=== PATIENT | female | born 1970 | race Caucasian/White ===

== ENCOUNTER 2022-01-13 09:49 | Observation (INO) ==
--- NOTE | 2022-01-06 14:20 | Anesthesiology Consultation ---
Date of Service January 06, 2022 Assessment & Plan (1) Encounter for pre-operative examination: - COVID screening: Per assessment on 01/06: No known COVID-19 positive contacts or current COVID-19 related symptoms. Travel screen negative. Patient vaccinated. At surgeon discretion if preop Covid testing being done. - Outpatient joint assessment: Pt currently scheduled for inpatient pathway. If surgeon requests review for outpatient joint pathway, patient is not recommended candidate for outpatient joint program from anesthesia standpoint. - Cardiology note (11/10/21): "Low to moderate risk.. recommend she stay on ASA 81mg perioperatively" Chart Review Chart Review: Acceptable Risk for Surgery and Patient NOT seen in Pre Admission Testing History Surgery Operation Date: 01/13/22 12:50 Proposed Procedures p Right Total Knee Arthroplasty - Andreas Brown MD Operation Date: 01/13/22 12:50 Proposed Procedures p Right Total Knee Arthroplasty - Andreas Brown MD Height/Weight Height: 5 ft Weight: 99.79 kg Allergies Allergy/AdvReac Type Severity Reaction Status Date / Time ergotamine Allergy Intermediate MADE Verified 01/06/22 10:25 HEADACHE WORSE/NAUSEA ondansetron Allergy Intermediate MADE Verified 01/06/22 10:25 HEADACHE/NAUSEA WORSE Medications Home Medications Medication Instructions Recorded Confirmed Last Taken gabapentin 400 mg capsule 400 mg PO TID 04/22/19 01/06/22 Unknown baclofen 10 mg tablet 10 mg PO TID PRN Pain 04/03/21 01/06/22 Unknown escitalopram oxalate 10 mg tablet 15 mg PO QAM 04/03/21 01/06/22 Unknown (Lexapro) trazodone 50 mg tablet 100 mg PO DAILY PRN Anxiety 04/03/21 01/06/22 Unknown acetaminophen 325 mg tablet 650 mg PO BID 07/04/21 01/06/22 Unknown (Tylenol) aspirin 81 mg capsule 81 mg PO QAM 07/04/21 01/06/22 Unknown celecoxib 100 mg capsule (Celebrex) 100 mg PO BID 10/07/21 01/06/22 Unknown hydroxyzine pamoate 25 mg capsule 25 mg PO BID PRN Anxiety 10/07/21 01/06/22 Unknown (Vistaril) ixekizumab 80 mg/mL subcutaneous 80 mg subcut UD 01/06/22 01/06/22 Unknown auto-injector (Taltz Autoinjector) Past Medical History Medical History Anxiety and depression CAD (coronary artery disease) PCI to mid RCA 04/24/14-F/U DR CHAPA Degenerative disc disease Fibromyalgia GERD (gastroesophageal reflux disease) Well controlled and stable Herniated disc T10-11 Hyperlipidemia NO MEDS Hypertension Migraine Peripheral neuropathy Noted to hands and feet bilaterally Psoriatic arthritis Follows with rheum and derm Restless legs syndrome Sleep apnea NO DEVICE STEMI (ST elevation myocardial infarction) 04/24/2014 Temporomandibular joint disorder NO LOCKING Past Family History Family History Other Unobtainable family history due to adoption Past Surgical History Surgical History H/O shoulder surgery LEFT + BICEP TENDON REPAIR History of appendectomy History of cardiac cath 2014- stent to RCA 03/2017- nonobsructive CAD History of cholecystectomy History of endometrial ablation History of esophagogastroduodenoscopy (EGD) History of heart artery stent 1 STENT PLACED 2014>DR. MOORE *FOLLOWS DR. CHAPA NOW History of Dawood fundoplication History of tonsillectomy and adenoidectomy History of tooth extraction History of total ankle replacement LEFT History of total hip arthroplasty LEFT Nausea and vomiting after administration of anesthetic agent SENSITIVE TO GAS ANESTHETIC Social History Smoking Status: Current every day smoker tobacco type: cigarettes Smoking cigarettes per day: 20 CIGS A DAY Do You Dip or Chew Tobacco: No Hx Alcohol Use: No Hx Substance Use: No substance use type: does not use Lab Results Anesthesia Preop Results Results Anesthesia Widget: WBC 8.51 K/ul (4.8-10.8) 12/31/21 Hgb 15.7 g/dl (12.0-16.0) 12/31/21 Hct 45.8 % (34.1-44.9) H 12/31/21 Plt 240 K/uL (130-400) 12/31/21 Na 139 mmol/L (136-145) 12/31/21 K 4.2 mmol/L (3.5-5.1) 12/31/21 Cl 103 mmol/L (98-107) 12/31/21 CO2 30 mmol/L (21-32) 12/31/21 BUN 22 mg/dl (6-23) 12/31/21 Creat 0.86 mg/dl (0.6-1.2) 12/31/21 Glucose Level 93 mg/dl (70-99(Fasting)) 12/31/21 PT 10.3 Seconds (9.0-12.0) 12/31/21 PTT 29.8 Seconds (21.0-31.0) 12/31/21 INR 1.0 (0.9-1.1) 12/31/21 Blood Type A Negative 12/31/21 Antibody Screen NEGATIVE 12/31/21 Testing Electrocardiogram Date: 10/31/21 SR at 58bpm. LAD. Moderate right precordial repolarization. Negative T in V2. SMall negative T in V3. Echo done 11/07/21. Cardiac risk assessment provided per 11/10/21 note. Chest X-Ray Date: 07/08/21 Frontal and lateral radiographs of the chest demonstrate the cardiomediastinal silhouette to be within normal limits. The lungs are clear of alveolar opacities. There is no evidence for effusion bilaterally. There is no evidence for vascular congestion. There is no acute osseous pathology. IMPRESSION: No acute cardiopulmonary disease. Echocardiogram Date: 11/07/21 EF 55%. Grade I DD. Moderate LAD. Mild MR. Physiologic [place]. Stress Test Date: 11/20/19 EF 60% Small fixed apical defect. Mild intensity, moderate to large size, reversible MPI defect of the anterior, anterolateral and lateral myocardium. This appears to be artifact but ischemia cannot be excluded. Moderately abnormal, moderate risk study. Prior study with similar territory involved, rest worse than stress.
--- NOTE | 2022-01-09 22:07 | History and Physical Report ---
DATE OF ADMISSION: 01/13/2022 CHIEF COMPLAINT: Persistent progressive right knee pain. HISTORY OF PRESENT ILLNESS: A 51-year-old female from [place], who presents for surgical treatmen t of her right knee. I saw her back in March and we scheduled her for knee replacement back then. She has got it canceled due to COVID issues and then had a cardiac workup. This has all been cleare d up and she now would like to have her knee fixed. She has got a long history of knee problems. Lake d this right knee scoped back in 2010 in [place]. Since then, her pain just has gradually got ten better. She has been through extensive conservative treatment provided by Dr. Torres and Dr. Maldonado in [place]. Dr. Lemon actually replaced her hip last year, but refused to do her knee du e to her BMI. Dr. Torres also refused. She is having trouble losing weight due to her limited acti vity. She is hoping to get her knee replaced. PAST MEDICAL HISTORY: Significant for, 1. Obesity with BMI of 44. 2. Elevated cholesterol. 3. Depression. 4. Psoriatic arthritis. 5. Smoking history. 6. Coronary artery disease, status post [place] in 2014. 7. Back surgery/sciatica. PAST SURGICAL HISTORY: Includes, 1. Left hip replacement done by Dr. Lemon on 06/24/2020. 2. Right knee scope done in 2010 in [place]. 3. . 4. Carpal tunnel release. 5. Left ankle replacement at [place] in 2007. 6. Appendectomy. 7. Dawood fundoplication. 8. Endometrial ablation. ALLERGIES: ZOFRAN, WHICH JUST CAUSES NAUSEA AND CAFERGOT. CURRENT MEDICATIONS: Include, 1. Humira. 2. Alprazolam. 3. Atorvastatin. 4. Baclofen. 5. Celebrex. 6. Lexapro. 7. Gabapentin. SOCIAL HISTORY: A 51-year-old female who lives in [place]. . Does not drink. One child. FAMILY HISTORY: Unknown as she is adopted. REVIEW OF SYSTEMS: Significant for psoriasis. She feels she does have psoriatic arthritis. No ches t pain or shortness of breath. No history of DVT or PE. PHYSICAL EXAMINATION: GENERAL: Shows a pleasant, obese, middle-aged female. HEENT: Benign. NECK: Supple. No lymphadenopathy. LUNGS: Clear to auscultation. HEART: Has a regular rate and rhythm. ABDOMEN: Soft, nontender, nondistended. EXTREMITIES: Grossly neurovascularly intact except as follows: Examination of the right knee reveal s the patient walks with a bit of an antalgic gait. She limps on the right side. Moderate to large soft tissue envelope. No obvious psoriatic patches. She does have some psoriasis on her left knee. Range of motion of the right is from 5-120. No instability. No pain with hip motion. X-RAYS: X-rays of the right knee reviewed. It shows advanced right knee DJD. She has complete loss of her medial joint space. She has got subchondral sclerosis. She has got osteophytes in all 3 com partments. She has similar, but less severe disease on the left side. ASSESSMENT: A 51-year-old female with underlying psoriasis and obesity with advanced knee arthritis. She has failed conservative treatment. She would like to have her knee fixed. She was scheduled f or surgery before, but had to cancel due to some cardiac issues, which have been cleared up. PLAN: We will take her to the operating room and do right total knee replacement. The risks and oscar efits of this procedure were explained to the patient and include but not limited to DVT, PE, , infection, neurological injury, vascular injury, bleeding problem, pain, limited range of motion, sti ffness, failure to relieve her symptoms, incomplete relief of symptoms, etc. The patient understands and desires to proceed. Informed consent was obtained. We will likely put some vancomycin in the cement due to her psoriasis and immunosuppression. We are also going to treat her with 7 days of postoperatively. We will hold any Zofran and use Reglan or something else for nausea. We will use tramadol for pain. She will follow up in our clinic 2 kerrie olmedo postop. Job ID: [id number]
[~2022-01-13 09:49] MED LIST: ACETAMINOPHEN 500 MG TAB PO SCH; BUPIVACAINE 0.5 % 5 MG/1 ML PF 10ML VIAL ONE; BUPIVACAINE LIPOSOME/PF 266 MG, BUPIVACAINE/EPINEPHRINE 50 ML, SODIUM CHLORIDE 0.9% 30 ... INFIL SCH; CeleBREX 200 MG CAP PO SCH; EPINEPHrine INJ 1 MG/ML AMP ONE; FAMOTIDINE 20 MG TAB PO SCH; LR 500ML BOLUS, THEN 15ML/HR IV SCH; LR 60ML/HR IV SCH; METOCLOPRAMIDE HCL 10 MG TABLET PO SCH; ROPIVACAINE 0.5% 5 MG/ML 30 ML VIAL ONE; Scopolamine 1 MG TDSY TD SCH; TRANEXAMIC ACID 1,000 MG **IV Intra-op IV SCH; ceFAZolin 2000MG 2,000 MG/15 ML SYR IV SCH
--- NOTE | 2022-01-13 11:25 | History & Physical Bridge Note ---
Date of Service January 13, 2022 History & Physical Bridge Note I have examined the patient, reviewed the History & Physical and in the interval since the performance of the History & Physical I have noted the following changes of clinical significance: no changes noted
[2022-01-13] MEDS ORDERED: fentaNYL citrate 100 MCG/2 ML VIAL ONE (12:39)
[2022-01-13] MEDS ORDERED: MIDAZOLAM HCL 1 MG/ML 2ML VIAL ONE (12:39)
[2022-01-13] MEDS ORDERED: ePHEDrine sulfate 50 MG/ML AMP IV PRN (12:48)
[2022-01-13] MEDS ORDERED: HYDROmorphone INJ 1 MG/ML SYRINGE IV PRN (12:48)
[2022-01-13] MEDS ORDERED: ATROPINE SULFATE 0.1 MG/ML 10ML SYR IV PRN (12:48)
[2022-01-13] MEDS ORDERED: VANCOMYCIN HCL 1000MG/20ML VIAL ONE (13:36)
[2022-01-13] MEDS ORDERED: SODIUM CHLORIDE 0.9% PF 50 ML VIAL ONE (13:36)
[2022-01-13] MEDS ORDERED: BUPIVACAINE LIPOSOME 1.3% 266 MG/20 ML VIAL ONE (13:36)
[2022-01-13] MEDS ORDERED: BUPIVACAINE/EPINEPHRINE 0.25% 1:200,000 30 ML VIAL ONE (13:36)
[2022-01-13] MEDS ORDERED: PROPOFOL IV EMULSION 10 MG/ML 20 ML VIAL IV ONE ×6 (13:53→14:42)
[2022-01-13] MEDS ORDERED: ePHEDrine sulfate 50 MG/ML AMP ONE (13:53)
[2022-01-13] MEDS ORDERED: GLYCOPYRROLATE 0.2 MG/ML VIAL ONE (14:15)
[2022-01-13] MEDS ORDERED: KETAMINE 50 MG/5 ML SYRINGE ONE (14:40)
[2022-01-13] MEDS: fentaNYL citrate 100 MCG/2 ML VIAL IV PRN ×4 (15:30→15:45)
--- NOTE | 2022-01-13 15:32 | Operative Report ---
PG Post Operative Report Pre & Post Diagnosis Operation Date: 01/13/22 12:30 Pre-Op Diagnosis: Right Knee Advanced Degenerative Joint Disease Post-Op Diagnosis: Right Knee Advanced Degenerative Joint Disease Operation Date: 01/13/22 12:50 <No data on this case meets the specified criteria> I identified the patient and participated in the time-out.: Yes Procedure Operation Date: 01/13/22 12:30 Actual Procedures p Right Total Knee Arthroplasty(Right) - Andreas Brown MD Operation Date: 01/13/22 12:50 <No data on this case meets the specified criteria> Surgeon Andreas Brown MD Car Tracer José Antonio Tan PA-C Estimated Blood Loss 50 Findings Consistent with Post-Op Diagnosis Operative findings revealed advanced right knee DJD with extensive grade 4 [id number] disease and eburnation of the entire medial femoral condyle medial tibial plateau. She had some grade 4 changes of the patellofemoral joint as well. She had a varus deformity to her knee. She had an unusual hyperextension deformity as well. Moderate-sized joint effusion. Large soft tissue envelope. Specimens Right knee sent for pathology Drains None Anesthesia Type Spinal MAC Complications none Disposition Accompanied Patient To Recovery: No Indications Patient is a 51-year-old female said a long history of right knee pain discomf ort is gradually gotten worse over time patient been through extensive conservative treatment over the years which would become less successful over time. X-rays show advanced medial compartment arthritis. She failed all conservative measures and elected proceed with total knee arthroplasty. Description of Procedure Operative implants consist of: 1 Biomet Vanguard size 62.5 right posterior stabilized femoral component. 2. Biomet size 63 tibial tray. 3. 12 mm posterior stabilized polyethylene insert. 4. 25 x 8 all Paller patella. The patient was taken the operating, identified, and placed on the operating table supine position protectors were properly padded. IV antibiotics arrived by anesthesia team. A spinal anesthetic and abductor canal block had provided in the holding area. Veronica catheter was placed in sterile fashion. Right Tetrick was then placed in the right lower extremities and prepped and draped in usual sterile fashion. The right leg was elevated exsanguinated with use of an Esmarch and the tourniquet was set at 300 mmHg. An anterior approach of the right knee was then performed to longitudinal incision centered over the patella. Sharp dissection was carried through subcutaneous tissue down the extensor mechanism. A medial parapatellar arthrotomy incision was made. Some subperiosteal dissection was carried out medially. The fat pad was resected from Neath patella tendon. Lateral patellofemoral ligament was released. Patella subluxated laterally and the knee was flexed. The osteophytes were taken off distal femur. The ACL and PCL were then released from distal femur the tibia subluxated anteriorly. External tibial alignment jig was then placed in the interface the tibia and adjusted 14 mm medially. Proximal tibial cut was made remove about a millimeter bone from most deficient aspect of tibial Plateau. Tibia was then sized to a size 63. Attention drawn the femur. The distal femur stem with a sharp drop with intramedullary canal was suction. A right 5 degree valgus cutting guide was placed. The distal femoral cutting block was pinned in place. Distal femoral cut was made to take an additional 3 mm of bone off distal femur. The femur was then sized to a size 62.5. The AP cutting block was pinned parallel to the epicondylar axis which was 3 degrees of external rotation. The anterior cut, anterior chamfer, posterior cut, posterior chamfer cuts were made for the box cutting guide was placed in just slight lateral and the box cut was made. The knee was flexed. The remnants of the medial and lateral menisci were excised. The osteophyte taken off the posterior aspect of the femur. A trial femoral component was placed. Tibial tray was pinned in maximum external rotation and the drill and stem punch were used to create defect in proximal tibia for the tibial tray. Knee was then trialed and the 12 mm insert fit most appropriately. Did make this a little bit tighter than usual as she had this hyperextension deformity to her knee preoperatively and I wonder trying fix that if possible. Attention drawn the patella. Patella was cleaned of all soft tissue. Patella thickness measured 20 mm in thickness was cut down to 12. Sized to a size 25 patella. The lug holes were drilled for the 25 patella. Lateral osteophytes removed. Patella button was placed. Knee was taken through range of motion patella tracked nicely with no thumbs test. Attention drawn to placing permanent components. Nupathe all trial components were removed. Bone plug was placed into the distal femur limit blood loss. Double batch Palacos G cement was mixed. Biomet Vanguard size 62.5 right posterior stabilized femoral component, size 63 tibial tray, 12 mm posterior stabilized polyethylene insert, and a 25 x 8 all Paller patella then cemented in place. The knee was brought out into full extension until cement hardened. Final cement check was then performed to the pericapsular tissues were injected with total 100 cc of combination of 20 cc of Exparel, 30 cc normal saline, 50 cc of quarter percent Marcaine with epinephrine. Patient did receive 1 g tranexamic acid. The tourniquet was let down for tourniquet time of 54 minutes. Hemostasis assured use electrocautery. The wound was once again irrigated extensively. Extensor mechanism closed with combination 1 PDS suture and #1 Vicryl suture in a [id number] fashion. Extensor mechanism checked found to be intact the subcutaneous tissue was then closed with 2 Dexon suture in buried erupted fashion skin was closed skin kourtney. Legs then cleaned and dried a sterile dressing was Xeroform, 4 fours, sterile cast padding, Elvis bandage were applied. Patient then transferred to the recovery room in stable c ondition. Patient tolerated procedure well and there were no complications. José Antonio Tan, my physician service center assistant, was present for the entire procedure. His assistance was essential and required for appropriate patient positioning, prepping and draping, surgical exposure, performing the technical details of the operation, placement the implants, closure of the wound, and placement of the sterile bandage. I attest to the content of the Intraoperative Record and any orders documented therein. Any exceptions are noted below.
--- NOTE | 2022-01-13 16:16 | Anesthesiology Progress Note ---
Date of Service January 13, 2022 Anesthesia Post Procedure Vital Signs Vital Signs: Temp Pulse Pulse Resp BP Pulse Ox O2 Del Method 01/13/22 16:05 36.6 C 63 16 132/57 L 93 Room Air 01/13/22 15:55 73 12 151/76 H 95 Oxymask 01/13/22 15:45 61 16 131/57 L 97 Oxymask 01/13/22 15:35 63 14 115/59 L 98 Oxymask 01/13/22 15:25 36.5 C 76 21 115/45 L 98 Oxymask 01/13/22 10:25 36.8 C 58 L 20 176/97 H 92 Room Air O2 Flow Rate 01/13/22 16:05 01/13/22 15:55 4 01/13/22 15:45 6 01/13/22 15:35 6 01/13/22 15:25 6 01/13/22 10:25 Pain Intensity Left Shoulder: Pain Intensity: 2 Transfer of Care Handoff Completed per policy Notes Mental Status: alert / awake / arousable and participated in evaluation Patient Amnestic to Procedure: Yes Nausea / Vomiting: adequately controlled Pain: adequately controlled Airway Patency, RR, SpO2: stable & adequate BP & HR: stable & adequate Hydration State: stable & adequate Anesthetic Complications: no major complications apparent and Pt Satisfied with anesthetic care
--- NOTE | 2022-01-13 16:26 | XRay Report ---
RIGHT KNEE 2 VIEWS History: Right total knee arthroplasty. Degenerative arthritis. Postop. FINDINGS: The patient is status post a right total knee arthroplasty. The hardware is intact. No frac ture or dislocation. Skin kourtney are in place. IMPRESSION: Right total knee arthroplasty. No evidence for hardware complication. ACT 112: Negative or not required by law. Electronically signed by: Juan Pedraza M.D. 01/13/2022 4:25 PM
[2022-01-13] MEDS ORDERED: traZODone HCL 100 MG TAB PO PRN (16:59)
[2022-01-13] MEDS ORDERED: PROMETHAZINE HCL 25 MG TAB PO PRN (16:59)
[2022-01-13] MEDS ORDERED: diphenhydrAMINE Capsule 25 MG CAP PO PRN (16:59)
[2022-01-13] MEDS ORDERED: METOCLOPRAMIDE HCL INJ 5 MG/ML 2 ML VIAL IV PRN (16:59)
[2022-01-13] MEDS ORDERED: ALUMINUM/MAGNESIUM SUSP 30 ML UDC PO PRN (16:59)
[2022-01-13] MEDS ORDERED: MAGNESIUM HYDROXIDE SUSP 30 ML UDC PO PRN (16:59)
[2022-01-13] MEDS ORDERED: NALOXONE HCL 0.4 MG/1 ML VIAL/CARP IV PRN (16:59)
[2022-01-13] MEDS ORDERED: hydrOXYzine HCl 25 MG TAB PO PRN (16:59)
[2022-01-13] MEDS ORDERED: ONDANSETRON INJ 2 MG/ML 2 ML VIAL IV PRN (16:59)
[2022-01-13] MEDS ORDERED: HYDROmorphone INJ 0.5 MG/0.5 ML SYR IV PRN (16:59)
[2022-01-13] MEDS ORDERED: BACLOFEN 10 MG TAB PO PRN (16:59)
[2022-01-13] MEDS ORDERED: bisacodyL 10 MG SUPP PR PRN (16:59)
[2022-01-13] MEDS: Scopolamine CHECK PATCH PLACEMENT SCH (17:27)
[2022-01-13] MEDS: SODIUM CHLORIDE 0.9% 1000ML 1,000 ML IV SCH (17:29)
[2022-01-13] MEDS: KETOROLAC 30 MG/ML VIAL IV SCH (18:44)
[2022-01-13] MEDS: ASCORBIC ACID 500 MG TAB PO SCH (18:44)
[2022-01-13] MEDS: GABAPENTIN 400 MG CAP PO SCH (20:19)
[2022-01-13] MEDS: ASPIRIN 81 MG ECTAB PO SCH (20:19)
[2022-01-13] MEDS: DOCUSATE SODIUM 100 MG CAP PO SCH (20:20)
[2022-01-13] MEDS: TAPENTADOL HCL ER 50 MG TABCR PO SCH (20:33)
[2022-01-13] MEDS ORDERED: SENNA 8.6 MG TAB PO SCH (21:00)
[2022-01-13] MEDS ORDERED: DOCUSATE SODIUM/SENNA 50/8.6MG TAB PO SCH (21:00)
[2022-01-13] MEDS ORDERED: TRANEXAMIC ACID / 0.7% NACL 1,000 MG/100 ML BAG IV SCH (21:30)
[2022-01-13] MEDS: ACETAMINOPHEN 500 MG TAB PO SCH (21:33)
[2022-01-13] MEDS: traMADol HCL 50 MG TABLET PO PRN (21:33)
[2022-01-13] MEDS ORDERED: HYDROmorphone INJ 1 MG/ML SYRINGE IV ONE (22:18)
[2022-01-13] MEDS ORDERED: HYDROmorphone INJ 1 MG/ML SYRINGE IM PRN (22:19)
[2022-01-13] MEDS: ceFAZolin 2000MG 2,000 MG/15 ML SYR IV SCH (22:26)
[2022-01-14] MEDS: Scopolamine CHECK PATCH PLACEMENT SCH ×2 (00:28→09:22)
[2022-01-14] MEDS: KETOROLAC 30 MG/ML VIAL IV SCH ×3 (00:28→11:10)
[2022-01-14] MEDS: SODIUM CHLORIDE 0.9% 1000ML 1,000 ML IV SCH (03:48)
[2022-01-14] MEDS: ACETAMINOPHEN 500 MG TAB PO SCH ×2 (06:08→13:25)
[2022-01-14] MEDS: ceFAZolin 2000MG 2,000 MG/15 ML SYR IV SCH (06:09)
[2022-01-14 06:24] LABS: Hematocrit (blood only) 43.2 % (34.1-44.9); Hemoglobin 14.7 g/dl (12.0-16.0); Mean Corpuscular Hemoglobin 32.4 pg (25.0-34.0); Mean Corpuscular Volume 95.2 fL (80.0-100.0); Mean Platelet Volume 8.7 fL (9.4-12.3); Platelet Count 251 K/uL (130-400); RDW Coefficient of Variation 13.1 % (11.5-14.5); RDW Standard Deviation 46.1 fL (36.4-46.3); Red Blood Count 4.54 M/uL (3.93-5.22); White Blood Count 14.03 K/ul (4.8-10.8)
[2022-01-14 06:52] LABS: BUN Creatinine Ratio 20.3 (10-20); Calcium 8.8 mg/dl (8.5-10.1); Creatinine Clr Calc Pharmacy 103.3 ml/min; Est GFR (Non-African American) 100.1 ml/min; Potassium 4.1 mmol/L (3.5-5.1)
[2022-01-14] MEDS ORDERED: dexAMETHasone 10 MG in SYRINGE 0 ML IV SCH (08:00)
[2022-01-14] MEDS ORDERED: ESCITALOPRAM OXALATE 10 MG TAB PO SCH (09:00)
[2022-01-14] MEDS ORDERED: MULTIVITAMIN TAB PO SCH (09:00)
[2022-01-14] MEDS: TAPENTADOL HCL ER 50 MG TABCR PO SCH (09:21)
[2022-01-14] MEDS: traMADol HCL 50 MG TABLET PO PRN (09:21)
[2022-01-14] MEDS: ASCORBIC ACID 500 MG TAB PO SCH (09:22)
[2022-01-14] MEDS: DOCUSATE SODIUM 100 MG CAP PO SCH (09:23)
[2022-01-14] MEDS: GABAPENTIN 400 MG CAP PO SCH ×2 (09:23→13:25)
[2022-01-14] MEDS: ASPIRIN 81 MG ECTAB PO SCH (09:23)
--- NOTE | 2022-01-14 11:44 | Progress Notes ---
DATE OF SERVICE: 01/13/2022 SUBJECTIVE: A 51-year-old female postoperative day 1 from a right knee replacement. She had a prett y rough night last night, but doing much better this morning. Therapy went well. Her pain is contro lled. She is hoping to go home. OBJECTIVE: VITAL SIGNS: Temperature 36.6. Vital signs are stable. PHYSICAL EXAMINATION: GENERAL: Shows a pleasant middle-aged female. The patient lying in bed, looks pretty comfortable. LUNGS: Clear to auscultation. HEART: Regular rate and rhythm. ABDOMEN: Soft, nontender, nondistended. EXTREMITIES: Grossly neurovascularly intact except as follows: Examination of the right leg reveals the dressing to be clean, dry and intact. Leg is well aligned. She can dorsiflex and plantarflex he r foot appropriately. She is neurologically intact. LABORATORY DATA: Hemoglobin 14.7. Hematocrit 43.2. Electrolytes are stable. ASSESSMENT: A 51-year-old female postoperative day 1 from right knee replacement, doing pretty well. Pretty rough, last night until she got caught up on pain medicine, is doing much better. She is ho ping to go home. PLAN: 1. DVT prophylaxis includes thigh-high TEDs, SCDs, and aspirin twice a day. 2. PT, OT, weightbear as tolerated. Right total knee protocol. 3. Pain control, doing okay with current pain regimen. 4. Disposition: Plan to discharge to home with some home health later today if she does okay in the rapy. Job ID: [id number]
--- NOTE | 2022-01-16 06:41 | Discharge Summary ---
Date of Service January 16, 2022 Discharge Data Procedures Performed Operation Date: 01/13/22 12:30 Actual Procedures p Right Total Knee Arthroplasty(Right) - Andreas Brown MD Operation Date: 01/13/22 12:50 <No data on this case meets the specified criteria> Hospital Course (1) Status post total right knee replacement: This is a 51 year old patient admitted on 01/13/22 and underwent total knee arthroplasty. She tolerated the procedure well and there were no complications. Transferred to the PACU post op and later to the orthopedic floor for further care. She was given ancef for antibiotic prophylaxis. She was also given KARL stockings, SCDs, and aspirin for DVT prophylaxis. Hemoglobin, hematocrit, and vital signs were monitored during her hospital stay and remained stable. Did not require any blood transfusions. There were no complications during her hospital stay. By post op day #1 the patient was tolerating a regular diet, pain was reasonably controlled with oral pain medicine, and she was participating in physical therapy. On post op day #1 the patient was discharged home and set up with home health care. She was given printed discharge instructions including prescriptions for extra strength tylenol, aspirin, ketorolac, cefadroxil, senokot, and tramadol. Continue physical therapy, weight bearing as tolerated. Continue KARL stockings. Follow up approximately 2 weeks post op or sooner if there are problems or concerns. Coding Level of Care Code None Diagnoses Status post total right knee replacement Z96.651
== END 2022-01-14 15:25 | disposition home health service (06) ==
LOC: 3E 09:49 → ASU 09:49

== ENCOUNTER 2023-04-16 08:56 | Observation (INO) ==
--- NOTE | 2023-01-29 13:34 | PAT Medication Instructions ---
Medication Instructions Date of Service January 29, 2023 Home Medications Medication Instructions Recorded acetaminophen 500 mg capsule 1,000 mg (2 x 500 mg) PO TID Pain 01/11/22 30 days #180 caps aspirin 81 mg tablet,delayed 81 mg PO BID 45 days #90 tabs 01/11/22 release (Saad Low Dose Aspirin) gabapentin 400 mg capsule 400 mg PO TID baclofen 10 mg tablet 10 mg PO TID PRN escitalopram oxalate 10 mg tablet (Lexapro) 15 mg PO QAM trazodone 50 mg tablet 100 mg PO DAILY PRN hydroxyzine pamoate 25 mg capsule (Vistaril) 25 mg PO BID PRN ixekizumab 80 mg/mL subcutaneous auto-injector (Taltz Autoinjector) 80 mg subcut Q30D acetaminophen 500 mg capsule 1,000 mg (2 x 500 mg) PO TID aspirin 81 mg tablet,delayed release (Saad Low Dose Aspirin) 81 mg PO BID cholecalciferol (vitamin D3) 25 mcg (1,000 unit) capsule (Vitamin D3) 25 mcg PO QAM L.acidophil-L.casei-B.bifid-B.longum-FOS 2 billion cell-50 mg capsule (Probiotic Blend) 1 cap PO QAM multivitamin 1 tab PO QAM Continue as directed trazodone 50 mg tablet 100 mg PO DAILY PRN(if needed) ASK your prescriber and surgeon ixekizumab 80 mg/mL subcutaneous auto-injector (Taltz Autoinjector) 80 mg subcut Q30D aspirin 81 mg tablet,delayed release (Saad Low Dose Aspirin) 81 mg PO BID DO NOT take the morning of surgery cholecalciferol (vitamin D3) 25 mcg (1,000 unit) capsule (Vitamin D3) 25 mcg PO QAM L.acidophil-L.casei-B.bifid-B.longum-FOS 2 billion cell-50 mg capsule (Probiotic Blend) 1 cap PO QAM multivitamin 1 tab PO QAM Take morning of surgery With a small sip of water, OTHERWISE NOTHING TO EAT OR DRINK AFTER MIDNIGHT: gabapentin 400 mg capsule 400 mg PO TID baclofen 10 mg tablet 10 mg PO TID PRN(if needed) escitalopram oxalate 10 mg tablet (Lexapro) 15 mg PO QAM hydroxyzine pamoate 25 mg capsule (Vistaril) 25 mg PO BID PRN(if needed) acetaminophen 500 mg capsule 1,000 mg (2 x 500 mg) PO TID Take evening before surgery gabapentin 400 mg capsule 400 mg PO TID baclofen 10 mg tablet 10 mg PO TID PRN(if needed) hydroxyzine pamoate 25 mg capsule (Vistaril) 25 mg PO BID PRN(if needed) acetaminophen 500 mg capsule 1,000 mg (2 x 500 mg) PO TID Other Notes If you have any questions please call us at [phone] or [phone] or [phone] or [phone]
--- NOTE | 2023-02-02 12:46 | Anesthesiology Consultation ---
Date of Service February 02, 2023 Assessment & Plan (1) Encounter for pre-operative examination: - check urine test STAT am DOS. - Patient is overdue for recommended follow-up with [facility] cardiology per 10/2021 note. Patient states she will contact cardiology regarding an appointment prior to surgery. Awaiting updated cardiology evaluation. Chart Review Chart Review: Pending: Refer to Additional Notes / Consult section and Patient seen in Pre Admission Testing Teaching & Discussion Pre-Anesthesia Teaching/Discussion Notes: Instructed NPO after midnight before surgery, except medications with 15 cc of water. Medication instructions provided according to the PAT guidelines. History Surgery Operation Date: 03/19/23 10:25 Proposed Procedures p Left Total Shoulder Arthroplasty Versus - Josue Hidalgo DO s Left Reverse Total Shoulder Arthroplasty - Josue Hidalgo DO Height/Weight Height: 5 ft Weight: 107.1 kg Allergies Allergy/AdvReac Type Severity Reaction Status Date / Time ergotamine Allergy Intermediate Worsened Verified 01/29/23 11:52 headache, nausea ondansetron Allergy Intermediate Worsened Verified 01/29/23 11:52 headache, nausea Medications Home Medications Medication Instructions Recorded Confirmed Last Taken gabapentin 400 mg capsule 400 mg PO TID 04/22/19 01/29/23 01/13/22 06:00 baclofen 10 mg tablet 10 mg PO TID PRN Pain 04/03/21 01/29/23 01/11/22 20:00 escitalopram oxalate 10 mg tablet 15 mg PO QAM 04/03/21 01/29/23 01/13/22 06:00 (Lexapro) trazodone 50 mg tablet 100 mg PO DAILY PRN Anxiety 04/03/21 01/29/23 01/11/22 23:00 hydroxyzine pamoate 25 mg capsule 25 mg PO BID PRN Anxiety 10/07/21 01/29/23 01/09/22 (Vistaril) ixekizumab 80 mg/mL subcutaneous 80 mg subcut Q30D 01/06/22 01/29/23 01/02/22 auto-injector (Taltz Autoinjector) acetaminophen 500 mg capsule 1,000 mg (2 x 500 mg) PO TID Pain 01/11/22 01/29/23 Unknown 30 days #180 caps aspirin 81 mg tablet,delayed 81 mg PO BID 45 days #90 tabs 01/11/22 01/29/23 Unknown release (Saad Low Dose Aspirin) cholecalciferol (vitamin D3) 25 25 mcg PO QAM 09/24/22 01/29/23 Unknown mcg (1,000 unit) capsule (Vitamin D3) L.acidophil-L.casei-B.bifid-B.longum-FOS 1 cap PO QAM 01/29/23 01/29/23 Unknown 2 billion cell-50 mg capsule (Probiotic Blend) multivitamin 1 tab PO QAM 01/29/23 01/29/23 Unknown peg 3350-sod sulf,[id number] See Rx Instructions PO .COMPLEX #2 02/01/23 Unknown 178.7-7.3-0.5-1.12-0.9 gram oral mL soln (Suflave) lamotrigine 25 mg tablet mg PO QAM 02/02/23 Unknown Past Medical History Medical History Morbid obesity with BMI of 40.0-44.9, adult Hx MRSA infection Hypertension CAD (coronary artery disease) Herniated disc Degenerative disc disease Psoriatic arthritis GERD (gastroesophageal reflux disease) Temporomandibular joint disorder Anxiety and depression Restless legs syndrome Peripheral neuropathy Migraine Hyperlipidemia Sleep apnea Fibromyalgia STEMI (ST elevation myocardial infarction) Patient denies h/o stroke, seizures, heart failure, DM, blood clots/DVTs or blood transfusions. Exercise / Class Metabolic Activity II 4-5 Yardwork/Stairs/Walk up hill (denies chest discomfort or shortness of breath with 1 FOS) Past Family History Family History Other Unobtainable family history due to adoption Past Surgical History Surgical History History of total right knee replacement History of cholecystectomy Nausea and vomiting after administration of anesthetic agent History of endometrial ablation H/O shoulder surgery History of total hip arthroplasty History of esophagogastroduodenoscopy (EGD) History of appendectomy History of Dawood fundoplication History of tooth extraction History of tonsillectomy and adenoidectomy History of cardiac cath History of heart artery stent History of total ankle replacement Past Anesthesia History No Family Hx of Anesthesia Complications and Other (PONV and headache) History of PONV No Hx of Motion Sickness and History of PONV (denies needing scop patch) Social History Smoking Status: Current every day smoker tobacco type: cigarettes Smoking cigarettes per day: 20 (advised on policy) Do You Dip or Chew Tobacco: No Hx Alcohol Use: No Hx Substance Use: No substance use type: does not use Review of Systems Patient denies chest pain, shortness of breath, dyspnea on exertion, fever, chills, cough, wheezing, or palpitations. Physical Exam Vital Signs Vitals BP 135/82 P 53 TEMP 98.2 SP02 95% on RA RESP 18 Physical Patient resting comfortably in chair in no acute distress, alert and oriented, responding appropriately throughout visit Full cervical extension range of motion without pain TMD 3.5 finger breadths Mallampati Score 2 Dentition: intact, denies chipped or loose teeth, caps/crowns, implants or bridges Lungs: normal respiratory effort. Good air movement, clear throughout to auscultation, no adventitious breath sounds Cardiac: regular rate and rhythm, no murmurs noted Carotid arteries: negative bruit bilat Lab Results Anesthesia Preop Results Results Anesthesia Widget: WBC 10.74 K/ul (4.8-10.8) 02/02/23 Hgb 15.7 g/dl (12.0-16.0) 02/02/23 Hct 46.7 % (37.0-47.0) 02/02/23 Plt 276 K/uL (130-400) 02/02/23 Na 138 mmol/L (136-145) 02/02/23 K 4.2 mmol/L (3.5-5.1) 02/02/23 Cl 104 mmol/L (98-107) 02/02/23 CO2 31 mmol/L (21-32) 02/02/23 BUN 19 mg/dl (6-23) 02/02/23 Creat 0.91 mg/dl (0.6-1.2) 02/02/23 Glucose Level 83 mg/dl (70-99(Fasting)) 02/02/23 PT 10.4 Seconds (9.0-12.0) 02/02/23 PTT 32.0 Seconds (21.0-31.0) H 02/02/23 INR 0.9 (0.9-1.1) 02/02/23 Blood Type A Negative 02/02/23 Antibody Screen NEGATIVE 02/02/23 Testing Electrocardiogram Date: 02/02/23 Sinus bradycardia, rate 53 bpm Left axis deviation Nonspecific ST and T wave abnormality No significant change vs 07/08/21 EKG Chest X-Ray Date: 02/02/23 No significant change compared to the prior study. No acute process. Echocardiogram Date: 11/07/21 EF 55% Grade I diastolic dysfunction Moderately dilated LA Mild mitral regurgitation Stress Test Date: 11/20/19 Small fixed apical defect. In addition, there is a mild intensity, moderate to large size reversible MPI defect of the anterior, anterolateral and lateral [place] cardium...appears to be artifact but ischemia cannot be excluded Moderately abnormal, moderate risk study. Prior study with similar territory involved, however, rest worse than stress Cardiac Catheterization Date: 03/30/17 Left main: no significant disease LAD: 40-50% proximal portion disease Cx: 40-50% proximal disease RCA: 30% disease mid to distal vessel, 30% disease proximally Residual nonobstructive CAD Maximize medical therapy
--- NOTE | 2023-04-15 07:47 | History & Physical Report ---
Date of Service April 15, 2023 Assessment & Plan (1) Osteoarthritis of left shoulder: We will proceed with a left total shoulder arthroplasty. Postoperatively she will be placed in a sling and kept overnight in the hospital for postop medical management. She will have the hospital set up home health before discharge. History of Present Illness Chief Complaint: Osteoarthritis of the left shoulder. Primary Care Provider: DENISE Lorenzo Silvia is a pleasant 52-year-old female who is been doing with chronic increasing left shoulder pain. X-rays and clinical examination have been diagnostic for advanced arthritis of the left shoulder. After failing extensive conservative treatment, she has elected to proceed with a left total shoulder ar throplasty. Allergies Allergy/AdvReac Type Severity Reaction Status Date / Time ergotamine Allergy Intermediate Worsened Verified 04/09/23 13:17 headache, nausea ondansetron Allergy Intermediate Worsened Verified 04/09/23 13:17 headache, nausea Home Medications Medication Instructions Recorded Confirmed Type gabapentin 400 mg capsule 400 mg PO TID 04/22/19 04/09/23 History baclofen 10 mg tablet 10 mg PO TID PRN Pain 04/03/21 04/09/23 History escitalopram oxalate 10 mg tablet 15 mg PO QAM 04/03/21 04/09/23 History (Lexapro) trazodone 50 mg tablet 100 mg PO DAILY PRN Anxiety 04/03/21 04/09/23 History hydroxyzine pamoate 25 mg capsule 25 mg PO BID PRN Anxiety 10/07/21 04/09/23 History (Vistaril) ixekizumab 80 mg/mL subcutaneous 80 mg subcut Q30D 01/06/22 04/09/23 History auto-injector (Taltz Autoinjector) acetaminophen 500 mg capsule 1,000 mg (2 x 500 mg) PO TID Pain 01/11/22 04/09/23 Rx 30 days #180 caps aspirin 81 mg tablet,delayed 81 mg PO BID 45 days #90 tabs 01/11/22 04/09/23 Rx release (Saad Low Dose Aspirin) cholecalciferol (vitamin D3) 25 25 mcg PO QAM 09/24/22 04/09/23 History mcg (1,000 unit) capsule (Vitamin D3) L.acidophil-L.casei-B.bifid-B.longum-FOS 1 cap PO QAM 01/29/23 04/09/23 History 2 billion cell-50 mg capsule (Probiotic Blend) multivitamin 1 tab PO QAM 01/29/23 04/09/23 History lamotrigine 25 mg tablet 50 mg PO QAM 02/02/23 04/09/23 History tramadol 50 mg tablet 50 mg PO Q6H PRN pain #20 tabs 03/26/23 04/09/23 Rx Past Med/Surg History Medical History History of COVID-19 01/2023>resolved Morbid obesity with BMI of 40.0-44.9, adult Hx MRSA infection Dx [place]; has had boils I&D in general surgeon's office at [facility] in the past, but it has been at least 1 year since she has had that done. Hypertension CAD (coronary artery disease) PCI to mid RCA [address] Lopez Herniated disc T10-11 Degenerative disc disease Psoriatic arthritis Follows with rheum and derm GERD (gastroesophageal reflux disease) Temporomandibular joint disorder No locking Anxiety and depression Restless legs syndrome Peripheral neuropathy Hands, feet Hyperlipidemia No meds Sleep apnea No device Fibromyalgia STEMI (ST elevation myocardial infarction) 2014 Surgical History History of total right knee replacement Right TKA (01/13/22): SAB at L3-4 + PNB at [facility] History of cholecystectomy Nausea and vomiting after administration of anesthetic agent "Sensitive to gas anesthetic" PONV, headache History of endometrial ablation H/O shoulder surgery Left + biceps tendon repair History of total hip arthroplasty Left History of esophagogastroduodenoscopy (EGD) History of appendectomy History of Dawood fundoplication History of tooth extraction History of tonsillectomy and adenoidectomy History of cardiac cath 2015- 1 stent to RCA 2017- Non-obstructive CAD ( [place]) History of heart artery stent 2014 History of total ankle replacement Left Family History Other Unobtainable family history due to adoption Social History Smoking Status: Current every day smoker Tobacco Type: Cigarettes Cigarettes Per Day: 20 (advised on policy); Second Hand Exposure: No; Do You Dip or Chew Tobacco: No; Tobacco Cessation Education Requested by Patient: No Hx Alcohol Use: No Hx Substance Use: No Preferred Language: Welsh Communication Ability: Effective Scroll Assembler Required: No Beliefs That Will Affect Care: None marital status: Current Living Situation: Spouse current occupational status: unemployed Other Information That Helps Us Care for You: No Feels Safe at Home: Yes Safety Concerns: Feels Safe At This Time Assistive Devices: Glasses Assistive Devices Comment: reading glasses Review of Systems All systems reviewed & are unremarkable except as noted in HPI & below. Physical Exam On physical exam of the left shoulder, she has decreased range of motion. She has crepitus throughout. She has pain over the glenohumeral joint line.. Constitutional WD/WN, vitals as above Eyes PERRL, conjunctivae normal, anicteric sclerae ENMT external ear and nose normal, oropharynx normal Neck trachea midline, no thyromegaly Respiratory normal respiratory effort Cardiovascular RRR, no murmur, no edema Gastrointestinal (Abdomen) normal bowel sounds, soft, nontender, no hepatosplenomegaly Psychiatric A+Ox3, euthymic affect Results & Data Results & Data Laboratory Results . Diagnostic Findings X-rays of the left shoulder show advanced osteoarthritis with joint space narrowing osteophyte formation and ugab-ut-zies articulation.. PG Care Time/CCT Total # of Minutes Spent Total Time Spent with Patient: Total time spent is greater than 50% in coordination of care (as documented) at patient's floor/unit and/or counseling patient: Coding Level of Care Code None Diagnoses Osteoarthritis of left shoulder M19.012
[~2023-04-16 08:56] MED LIST changes: -BUPIVACAINE LIPOSOME/PF 266 MG, BUPIVACAINE/EPINEPHRINE 50 ML, SODIUM CHLORIDE 0.9% 30 ... INFIL SCH; -CeleBREX 200 MG CAP PO SCH; -EPINEPHrine INJ 1 MG/ML AMP ONE; +GABAPENTIN 900 MG DOSE PO SCH; +LR 15ML/HR IV SCH; -LR 500ML BOLUS, THEN 15ML/HR IV SCH; -METOCLOPRAMIDE HCL 10 MG TABLET PO SCH; +ROPIV 0.5% 246mg, Ketorolac 30mg, EPINEPHrine 0.5mg in NSS INFIL SCH; -ROPIVACAINE 0.5% 5 MG/ML 30 ML VIAL ONE; -Scopolamine 1 MG TDSY TD SCH; +TRANEXAMIC ACID 1,000 MG **IV Pre-op IV SCH; +dexAMETHasone**PF** 10 MG/ML VIAL IV SCH
[2023-04-16] MEDS ORDERED: MIDAZOLAM HCL 1 MG/ML 2ML VIAL ONE (09:30)
[2023-04-16] MEDS ORDERED: fentaNYL citrate PF 100 MCG/2 ML VIAL ONE (09:31)
--- NOTE | 2023-04-16 09:48 | History & Physical Bridge Note ---
Date of Service April 16, 2023 History & Physical Bridge Note I have examined the patient, reviewed the History & Physical and in the interval since the performance of the History & Physical I have noted the following changes of clinical significance: no changes noted
[2023-04-16 10:04] LABS: Basophils # (auto) 0.05 K/uL (0.00-0.20); Basophils % (auto) 0.6 %; Eosinophils # (auto) 0.15 K/uL (0.00-0.50); Eosinophils % (auto) 1.7 %; Hemoglobin 15.4 g/dl (12.0-16.0); Immature Granulocytes # (auto) 0.03 K/uL (0.01-0.20); Immature Granulocytes % (auto) 0.3 %; Lymphocytes # (auto) 3.99 K/uL (1.20-3.40); Lymphocytes % (auto) 45.4 %; Mean Corpuscular Hgb Conc 34.2 g/dL (32.0-36.0); Mean Corpuscular Volume 93.4 fL (80.0-100.0); Mean Platelet Volume 9.1 fL (9.4-12.4); Neutrophils # (auto) 3.86 K/uL (1.40-6.50); Platelet Count 238 K/uL (130-400); RDW Coefficient of Variation 11.9 % (11.5-14.5); RDW Standard Deviation 41.5 fL (36.4-46.3); Red Blood Count 4.82 M/uL (4.20-5.40); White Blood Count 8.78 K/ul (4.8-10.8)
[2023-04-16 10:11] LABS: Calcium 9.5 mg/dl (8.6-10.3); Creatinine Clr Calc Pharmacy 96.4 ml/min; Est GFR (African American) 105.5 ml/min; Potassium 4.5 mmol/L (3.5-5.1)
[2023-04-16] MEDS ORDERED: fentaNYL citrate PF 100 MCG/2 ML VIAL IV PRN (10:22)
[2023-04-16] MEDS ORDERED: PROMETHAZINE HCL 6.25 MG in SODIUM CHLORIDE 0.9% 50 ML IV PRN (10:22)
[2023-04-16] MEDS ORDERED: ATROPINE SULFATE 0.1 MG/ML 10ML SYR IV PRN (10:22)
[2023-04-16] MEDS ORDERED: ePHEDrine sulfate 50 MG/ML AMP IV PRN (10:22)
[2023-04-16 10:25] LABS: INR 0.9 (0.9-1.1); Partial Thromboplastin Ratio 1.2; Partial Thromboplastin Time 34 Seconds (21-31); Prothrombin Time 10.3 Seconds (9.0-12.0)
[2023-04-16] MEDS ORDERED: SCOPOLAMINE 1 MG TDSY TD ONE (10:30)
[2023-04-16] MEDS ORDERED: ORTHO JOINT ANESTHETIC ONE (10:54)
[2023-04-16] MEDS ORDERED: METOCLOPRAMIDE HCL INJ 5 MG/ML 2 ML VIAL ONE (11:11)
[2023-04-16] MEDS ORDERED: DEXAMETHASONE SOD INJ 4 MG/ML VIAL ONE (11:11)
[2023-04-16] MEDS ORDERED: ePHEDrine sulfate 50 MG/5 ML SYR ONE (11:11)
[2023-04-16] MEDS ORDERED: diphenhydrAMINE 50 MG/ML VIAL ONE (11:11)
[2023-04-16] MEDS ORDERED: LIDOCAINE 2% 2 ML VIAL/AMP(20MG/ML) INFIL ONE (11:12)
[2023-04-16] MEDS ORDERED: PROPOFOL IV EMULSION 10 MG/ML 20 ML VIAL IV ONE (11:12)
--- NOTE | 2023-04-16 12:43 | Operative Report ---
PG Post Operative Report Pre & Post Diagnosis Operation Date: 04/16/23 11:05 Pre-Op Diagnosis: Degenerative Joint Disease Left Shoulder with tendinopathy long head of the biceps tendon Post-Op Diagnosis: Degenerative Joint Disease Left Shoulder with tendinopathy long head of the biceps tendon I identified the patient and participated in the time-out.: Yes Procedure Operation Date: 04/16/23 11:05 Actual Procedures p Left Total Shoulder Arthroplasty(Left) with open biceps tenodesis as a distinct and separate procedure (modifier 59)- Josue Hidalgo DO Surgeon Josue Hidalgo DO Plastic Parts Designer Josue Batres PA-C Estimated Blood Loss 300 Findings Consistent with Post-Op Diagnosis Specimens Left humeral head Description of Procedure A CPT code modifier 59: The long head of the biceps tendon was enlarged and inflamed consistent with tendinopathy. A tenodesis was opted. This was a separate and distinct portion of the procedure. For these reasons, a CPT code modifier 59 will be added to this case. Implants used: I used a [employer] Comprehensive total shoulder arthroplasty system with a size 11 press fit micro humeral stem, a size 42 x 18 eccentric humeral head, and a size 3 glenoid with a trabecular metal peg. The glenoid was cemented in place with Palacos G cement. Silvia arrived at [facility] for the above procedure. She was seen in the preoperative holding area and the operative extremity was identified and signed. She was given a preoperative antibiotic, TXA, and an interscalene nerve block. She was taken back to the operating room, laid on table in supine position, and put under general anesthesia. She was then put into the beachchair position. The shoulder was then prepped and draped in sterile fashion. A timeout was done and the patient and the operative extremity was properly identified. A deltopectoral approach was used. Dissection was taken down through the fascia and the deltoid was retracted laterally and the conjoined tendon was retracted medially. The anterior shoulder was exposed. The biceps groove was opened up and the biceps tendon was examined extensively. The biceps tendon demonstrated enlargement and inflammatory changes consistent with longstanding inflammation in the context of osteoarthritis. The long head of the biceps tendon was then tenodesed to the upper border of the pectoralis major. This was a separate and distinct portion of the procedure. The subscapularis was then released off the lesser tuberosity with a centimeter of cuff tissue remaining. The inferior capsule was released and the humeral head was dislocated. The rotator cuff was inspected and intact. A canal finding reamer was sent down the center of the humeral canal. Sequential reaming up to a size 11 reamer was done. Offset reamer a proximal humeral resection guide was placed. The proximal humerus was resected at 135 of inclination and 30 of retroversion. Inferior osteophytes were then removed and the glenoid was exposed. Time was spent doing an appropriate labral release. The glenoid measured to be a size 3. A Friend Traveler Signature One guide was then attached onto the anterior rim of the glenoid. A 3.2 mm Steinmann pin was then placed in the total shoulder arthroplasty hole. The glenoid was then reamed with a propeller reamer. The central post cutter was then used to prepare for the central boss. The cannulated peripheral peg drill guide was then placed and 3 peg holes were drilled. The final size 3 glenoid was then cemented in place with Palacos G cement. Surrounding soft tissues were then injected with 100 cc of an orthopedic pain control cocktail. Once cement had dried the proximal humerus was once again exposed. Sequential broaching of the humerus up to a size 11 broach was done. Off that broach a size 42 x 18 eccentric humeral head was trialed. The shoulder was then reduced, brought through a full range of motion, and felt to be stable. The shoulder was then dislocated and the broach was removed. The final size 11 micro humeral stem implant was then impacted into place. A size 42 x 18 eccentric humeral head was then impacted onto the humeral stem. The shoulder was then reduced and once again brought through a full range of motion and felt to be stable. The subscapularis was then tenodesed back to the lesser tuberosity with transosseous FiberWire sutures and side to side sutures with the arm in 45 of external rotation. 2 sutures were placed in the lateral rotator interval. A dilute betadyne lavage was then done for 3 minutes. The joint was then irrigated with normal saline solution. Hemostasis was obtained. The interval was closed with 2-0 Vicryl suture. The skin was closed with 2-0 Vicryl and kourtney. A Silverlon dressing was placed and the arm was rested in a regular arm sling. She was then extubated and transferred to a hospital bed. She was taken to the postanesthesia care unit in stable condition. She tolerated the procedure well. Josue Batres PA-C, was present for the entire procedure. He was critical for patient positioning, prepping, draping, retraction exposure, wound closure and application of sterile dressing. I attest to the content of the Intraoperative Record and any orders documented therein. Any exceptions are noted below.
--- NOTE | 2023-04-16 13:27 | Anesthesiology Progress Note ---
Date of Service April 16, 2023 Anesthesia Post Procedure Vital Signs Vital Signs: Temp Pulse Pulse Resp BP Pulse Ox O2 Del Method 04/16/23 13:05 78 20 155/83 H 95 Oxymask 04/16/23 12:57 36 C L 88 18 159/78 H 98 Oxymask 04/16/23 09:32 36.8 C 53 L 20 139/76 94 Room Air O2 Flow Rate 04/16/23 13:05 4 04/16/23 12:57 6 04/16/23 09:32 Pain Intensity Left Shoulder: Pain Intensity: 3 Transfer of Care Handoff Completed per policy Notes Mental Status: alert / awake / arousable and participated in evaluation Patient Amnestic to Procedure: Yes Nausea / Vomiting: adequately controlled Pain: adequately controlled Airway Patency, RR, SpO2: stable & adequate BP & HR: stable & adequate Hydration State: stable & adequate Anesthetic Complications: no major complications apparent and Pt Satisfied with anesthetic care
--- NOTE | 2023-04-16 13:45 | XRay Report ---
XR shoulder LT min 2V routine CLINICAL HISTORY: Post shoulder surgery COMPARISON STUDY: None. FINDINGS: The patient is status post a left total shoulder arthroplasty. The hardware is intact. No f racture or dislocation. Skin kourtney are in place. IMPRESSION: Status post left total shoulder arthroplasty. No evidence for hardware complication. ACT 112: Negative or not required by law. Electronically signed by: Juan Pedraza M.D. 04/16/2023 1:44 PM
[2023-04-16] MEDS ORDERED: HYDROmorphone INJ 0.5 MG/0.5 ML SYR IV PRN (14:37)
[2023-04-16] MEDS ORDERED: traZODone HCL 100 MG TAB PO PRN (14:37)
[2023-04-16] MEDS ORDERED: METOCLOPRAMIDE HCL INJ 5 MG/ML 2 ML VIAL IV PRN (14:37)
[2023-04-16] MEDS ORDERED: NALOXONE HCL 0.4 MG/1 ML VIAL/CARP IV PRN (14:37)
[2023-04-16] MEDS ORDERED: bisacodyL 10 MG SUPP PR PRN (14:37)
[2023-04-16] MEDS ORDERED: hydrOXYzine HCl 25 MG TAB PO PRN (14:37)
[2023-04-16] MEDS ORDERED: traMADol HCL 50 MG TABLET PO PRN (14:37)
[2023-04-16] MEDS ORDERED: MAGNESIUM HYDROXIDE SUSP 30 ML UDC PO PRN (14:37)
[2023-04-16] MEDS ORDERED: ONDANSETRON INJ 2 MG/ML 2 ML VIAL IV PRN (14:37)
[2023-04-16] MEDS ORDERED: oxyCODONE HCL IR 5 MG TAB (IMMEDIATE RELEASE) PO PRN (14:37)
[2023-04-16] MEDS: SODIUM CHLORIDE 0.9% 1,000 ML IV SCH (15:55)
[2023-04-16] MEDS: GABAPENTIN 400 MG CAP PO SCH ×2 (15:56→21:21)
[2023-04-16] MEDS: ACETAMINOPHEN 500 MG TAB PO SCH ×2 (15:57→21:21)
[2023-04-16] MEDS: KETOROLAC TROMETHAMINE 15 MG/ML VIAL IV SCH ×2 (15:58→21:21)
[2023-04-16] MEDS: ceFAZolin 2000MG 2,000 MG/15 ML SYR IV SCH (17:57)
[2023-04-16] MEDS ORDERED: SENNA 8.6 MG TAB PO SCH (21:00)
[2023-04-16] MEDS: DOCUSATE SODIUM 100 MG CAP PO SCH (21:21)
[2023-04-16] MEDS: ASPIRIN 81 MG ECTAB PO SCH (21:21)
[2023-04-17] MEDS: SODIUM CHLORIDE 0.9% 1,000 ML IV SCH (00:57)
[2023-04-17] MEDS: KETOROLAC TROMETHAMINE 15 MG/ML VIAL IV SCH ×2 (02:55→08:08)
[2023-04-17] MEDS: ceFAZolin 2000MG 2,000 MG/15 ML SYR IV SCH (02:55)
[2023-04-17] MEDS: ACETAMINOPHEN 500 MG TAB PO SCH (05:47)
--- NOTE | 2023-04-17 07:36 | Orthopedic Progress Note ---
Date of Service April 17, 2023 Assessment & Plan (1) Status post replacement of left shoulder joint: Overall she is doing very well. She is not having much pain in the left shoulder. She will be seen by physical therapy today for ambulation and range of motion exercises. She can be discharged home later today. She will follow- up with orthopedics in 2 weeks. Julissa Vega was seen and examined at bedside this morning. Overall she is doing very well. She is not having much pain in the left shoulder. She was able to get some sleep last night. She has no complaints.. Review of Systems All systems reviewed & are unremarkable except as noted in HPI & below. Physical Exam On physical examination of the left shoulder, the dressing is clean and dry. She is wearing her sling as instructed. She has active motion of her hand and her wrist.. Results & Data Results & Data Laboratory Results . Diagnostic Findings Postoperative x-rays of the left shoulder show the prosthesis to be in anatomic alignment without any evidence of fracture complication, or loosening.. PG Care Time/CCT Total # of Minutes Spent Total Time Spent with Patient: Total time spent is greater than 50% in coordination of care (as documented) at patient's floor/unit and/or counseling patient: Coding Level of Care Code 42477 Post Operative Follow-Up Diagnoses Status post replacement of left shoulder joint Z96.612
--- NOTE | 2023-04-17 07:38 | Discharge Summary ---
Date of Service April 17, 2023 Admission HPI (Per Admitting) Silvia is a pleasant 52-year-old female who is been doing with chronic increasing left shoulder pain. X-rays and clinical examination have been diagnostic for advanced arthritis of the left shoulder. After failing extensive conservative treatment, she has elected to proceed with a left total shoulder arthroplasty. Admission Exam (Per Admitting) On physical exam of the left shoulder, she has decreased range of motion. She has crepitus throughout. She has pain over the glenohumeral joint line.. Principal Diagnosis Same as "Discharge Diagnosis" noted below under Discharge Instructions. Discharge Exam On physical examination of the left shoulder, the dressing is clean and dry. She is wearing her sling as instructed. She has active motion of her hand and her wrist.. Discharge Data Procedures Performed Operation Date: 04/16/23 11:05 Actual Procedures p Left Total Shoulder Arthroplasty(Left) - Josue Hidalgo DO Ordered Studies 04/16/23 05:00 US - OR guided needle placemen Routine Hospital Course (1) Status post replacement of left shoulder joint: On April 16, 2023 Silvia arrived at [facility] and underwent a left shoulder replacement without complication. She had a general anesthetic and a left interscalene nerve block. Postoperatively she was placed in a sling and transferred to the general orthopedic floors. Her hospital course was uneventful. On postop day #1, her vital signs were stable and her pain was well -controlled. She was able to participate well with physical therapy doing ambulation and range of motion exercises. She was then discharged home. She will follow-up with orthopedics in 2 weeks. PG Care Time/CCT Total # of Minutes Spent Total Time Spent with Patient: Total time spent is greater than 50% in coordination of care (as documented) at patient's floor/unit and/or counseling patient: Discharge Plan Discharge Items Patient Disposition: Home - Self-Care Reason For Visit: Degenerative Joint Disease Left Shoulder Discharge Diagnosis: Left shoulder replacement Activity: As commented below Non-emergency contact: Surgeon Call non-emergency contact if: your wound has increased redness and your wound has increased drainage Follow-up/Referrals: Tiana Porter CRNP [Primary Care Provider] - Diet: Regular Addtl Attending Provider Instructions: Activity and Therapy Recommendations: * If you are using [facility] then therapy will be provided at your home until they feel you have accomplished all of your goals. * If you are using [facility] then Physical Therapy will be provided until they feel you are ready to start Outpatient Physical Therapy. * If you are not using home therapy then Outpatient Physical Therapy should st art about 3-5 days from your day of surgery. Therapy will last about 8-12 weeks * Wear your sling for 6 weeks, unless otherwise instructed. You may remove your sling to shower and to dress, but otherwise, you should be in your sling at all times, including while sleeping * The shoulder replacement is very stable and you can use your hand while in the sling * You were shown a series of exercises in the hospital. Do these exercises daily including the exercises you were shown in physical therapy. Medications: * Narcotic You will likely be sent home from the hospital with a prescription for the narcotic pain medication that worked best throughout your stay. * Cefadroxil -take the antibiotic twice a day for 10 days to help prevent infection. * Other medications may be prescribed for specific circumstances. If you have any questions, please call the office at . * Resume previous home medications unless otherwise instructed Dressing Care: Leave the Silverlon dressing in place for 7 days. After 7 days you may remove the dressing. If the incision is not draining then you may leave the kourtney open to air. If there is a little bit of drainage or if the kourtney are getting stuck on your clothing then cover the incision with a dry dressing. The kourtney will be removed at your 2 week follow-up appointment. Showering: You may shower with the Silverlon dressing in place. Do not let the shower spray hit the dressing directly. Pat the Silverlon dressing dry. If the dressing becomes wet underneath, then simply remove the dressing. Keep the incision dry until you are 7 days out from the day of surgery. After 7 days you may remove the Silverlon dressing and shower with the kourtney exposed. Let soapy water run over the kourtney and pat them dry. Do not scrub or soak the incision. Things To Watch For: * Drainage from the incision site that occurs more than one week after your surgery. * Increased redness at the incision site. * Fever above 102 degrees Fahrenheit. * Unusual chest pain or shortness of breath. * Call [facility] at with any of the above problems Follow-Up Visit: Follow-up with Dr. Hidalgo's PA (Josue Batres) 2-3 weeks after your day of surgery. He will remove your kourtney and answer any questions. If you have any additional questions or concerns, Dr Hidalgo is usually in the office at the same time and will be available An appointment was probably scheduled when you signed-up for surgery in the office. If you have any questions call More detailed instructions as well as Frequently Asked Questions were provided in a folder by our office when you signed-up for surgery. Please review these instructions when you get home. If you have any further questions or concerns, please feel free to call the office at [phone] Pending Studies at Discharge: No Stand-Alone Forms: My [facility] Medications and DC Order Prescriptions: New oxycodone 5 mg Tablet 5 mg PO Q4H PRN (Reason: pain) Qty: 30 0RF Continued acetaminophen 500 mg capsule 1,000 mg PO TID 30 Days Qty: 180 0RF Rx Instructions: TAke 3 times per day to lessen pain. aspirin [Saad Low Dose Aspirin] 81 mg tablet,delayed release (DR/EC) 81 mg PO BID 45 Days Qty: 90 0RF Rx Instructions: Take to prevent blood clots. tramadol 50 mg tablet 50 mg PO Q6H PRN (Reason: pain) Qty: 20 0RF baclofen 10 mg tablet 10 mg PO TID PRN (Reason: Pain) trazodone 50 mg tablet 100 mg PO DAILY PRN (Reason: Anxiety) escitalopram oxalate [Lexapro] 10 mg tablet 15 mg PO QAM gabapentin 400 mg capsule 400 mg PO TID hydroxyzine pamoate [Vistaril] 25 mg Capsule 25 mg PO BID PRN (Reason: Anxiety) multivitamin Tablet 1 tab PO QAM Probiotic Blend 2 billion cell-50 mg Capsule 1 cap PO QAM Rx Instructions: give with meal/snack lamotrigine 25 mg tablet 50 mg PO QAM [place]nick Autoinjector 80 mg/mL Auto-Injector 80 mg SUBCUT Q30D cholecalciferol (vitamin D3) [Vitamin D3] 25 mcg (1,000 unit) Capsule 25 mcg PO QAM Discharge Orders: Discharge Order (Routine); Ordered 04/17/23 Ordered By: Josue Hidalgo Admission Data Admit Date/Time: 04/16/23 12:08 Attending Provider: Josue Hidalgo Admit Provider: Josue Hidalgo Primary Care Provider: Tiana Porter
[2023-04-17] MEDS ORDERED: dexAMETHasone 4 MG TAB PO SCH (08:00)
[2023-04-17] MEDS: ASPIRIN 81 MG ECTAB PO SCH (08:04)
[2023-04-17] MEDS: DOCUSATE SODIUM 100 MG CAP PO SCH (08:05)
[2023-04-17] MEDS: GABAPENTIN 400 MG CAP PO SCH (08:06)
[2023-04-17] MEDS ORDERED: lamoTRIgine 25 MG TAB PO SCH (09:00)
[2023-04-17] MEDS ORDERED: MULTIVITAMIN TAB PO SCH (09:00)
[2023-04-17] MEDS ORDERED: ESCITALOPRAM OXALATE 10 MG TAB PO SCH (09:00)
== END 2023-04-17 10:59 | disposition home or self-care (01) ==
LOC: 3E 08:56 → ASU 08:56

== ENCOUNTER 2024-07-11 05:19 | Observation (INO) ==
--- NOTE | 2024-06-14 09:36 | PAT Medication Instructions ---
Medication Instructions Date of Service June 14, 2024 Home Medications gabapentin 400 mg capsule (Neurontin) 400 mg PO TID baclofen 10 mg tablet 10 mg PO TID PRN Pain or Muscle Spasms hydroxyzine pamoate 25 mg capsule (Vistaril) 25 mg PO BID PRN Anxiety cholecalciferol (vitamin D3) 25 mcg (1,000 unit) capsule (Vitamin D3) 25 mcg PO QAM multivitamin 1 tab PO QAM albuterol sulfate 90 mcg/actuation breath activated powder inhaler,sensor 90 mcg inhalation Q6H PRN Shortness Of Breath Or Wheezing budesonide-formoterol HFA 80 mcg-4.5 mcg/actuation aerosol inhaler (Symbicort) 2 puff inhalation BID PRN Shortness Breath coenzyme Q10 200 mg capsule 200 mg PO DAILY lactobacillus combination no.9 4 billion cell capsule (Adult 50 Plus Probiotic) 4,000 mmu cells PO DAILY pantoprazole 40 mg tablet,delayed release (Protonix) 40 mg PO QAM pravastatin 40 mg tablet 40 mg PO QPM secukinumab 150 mg/mL subcutaneous syringe (Cosentyx) 150 mg subcut MONTHLY aspirin 81 mg tablet,delayed release (Saad Low Dose Aspirin) 81 mg PO QAM acetaminophen 500 mg capsule 1,000 mg PO BID Pain trazodone 100 mg tablet 100 mg PO HS PRN Insomnia ASK your prescriber and surgeon secukinumab 150 mg/mL subcutaneous syringe (Cosentyx) 150 mg subcut MONTHLY aspirin 81 mg tablet,delayed release (Saad Low Dose Aspirin) 81 mg PO QAM STOP taking 2 weeks before surgery (or as soon as possible if surgery is within 2 weeks) coenzyme Q10 200 mg capsule 200 mg PO DAILY DO NOT take the morning of surgery hydroxyzine pamoate 25 mg capsule (Vistaril) 25 mg PO BID PRN Anxiety cholecalciferol (vitamin D3) 25 mcg (1,000 unit) capsule (Vitamin D3) 25 mcg PO QAM multivitamin 1 tab PO QAM lactobacillus combination no.9 4 billion cell capsule (Adult 50 Plus Probiotic) 4,000 mmu cells PO DAILY Take morning of surgery With a small sip of water, OTHERWISE NOTHING TO EAT OR DRINK AFTER MIDNIGHT: gabapentin 400 mg capsule (Neurontin) 400 mg PO TID baclofen 10 mg tablet 10 mg PO TID PRN Pain or Muscle Spasms (if needed) hydroxyzine pamoate 25 mg capsule (Vistaril) 25 mg PO BID PRN Anxiety (if needed) albuterol sulfate 90 mcg/actuation breath activated powder inhaler,sensor 90 mcg inhalation Q6H PRN Shortness Of Breath Or Wheezing (use if needed; please bring rescue inhaler with you to hospital day of surgery if possible) budesonide-formoterol HFA 80 mcg-4.5 mcg/actuation aerosol inhaler (Symbicort) 2 puff inhalation BID PRN Shortness Breath (if needed) pantoprazole 40 mg tablet,delayed release (Protonix) 40 mg PO QAM acetaminophen 500 mg capsule 1,000 mg PO BID Pain (if needed) Take evening before surgery gabapentin 400 mg capsule (Neurontin) 400 mg PO TID baclofen 10 mg tablet 10 mg PO TID PRN Pain or Muscle Spasms (if needed) hydroxyzine pamoate 25 mg capsule (Vistaril) 25 mg PO BID PRN Anxiety (if needed) albuterol sulfate 90 mcg/actuation breath activated powder inhaler,sensor 90 mcg inhalation Q6H PRN Shortness Of Breath Or Wheezing (if needed) budesonide-formoterol HFA 80 mcg-4.5 mcg/actuation aerosol inhaler (Symbicort) 2 puff inhalation BID PRN Shortness Breath (if needed) pravastatin 40 mg tablet 40 mg PO QPM acetaminophen 500 mg capsule 1,000 mg PO BID Pain (if needed) trazodone 100 mg tablet 100 mg PO HS PRN Insomnia (if needed) Other Notes If you have any questions please call us at [phone] or [phone] or [phone] or [phone]
--- NOTE | 2024-06-20 08:29 | Anesthesiology Consultation ---
Date of Service June 20, 2024 Assessment & Plan (1) Encounter for pre-operative examination: - Check test DOS - Infectious disease screening: Per assessment on 06/20/24- No known recent infectious disease contacts or current infectious disease symptoms. - Outpatient joint assessment: Pt currently scheduled for inpatient pathway. If surgeon requests review for outpatient joint pathway, patient is not recommended candidate for outpatient joint program from anesthesia standpoint based on available information. - Previous anesthesia hx: * Left TSA (04/16/23): LMA#4 igel, good seal + regional at [facility] * Right TKA (01/13/22): SAB at L3-4 + PNB at [facility] - Cardiology visit (01/28/24): "Will schedule for a dobutamine stress echo later this winter to followup on her nondiagnostic routine treadmill stress test. Depending on those results further recommendations will follow." Cardiology office made aware of upcoming surgery. They confirmed that patient postponed originally scheduled date of stress test and did not call back to reschedule. Cardio staff sent message to provider to f/u- received cardiology provider response that recommendation for stress test to be done prior to surgery. Cardiology arranged for preop DSE stress test- Awaiting report ([facility], 06/22). Chart Review Chart Review: Patient seen in Pre Admission Testing Teaching & Discussion Pre-Anesthesia Teaching/Discussion Notes: Instructed NPO after midnight before surgery,except medications with 15 cc of water. Medication instructions provided according to the PAT guidelines. History Surgery Operation Date: 07/11/24 12:30 Proposed Procedures p Right Total Hip Arthroplasty - Andreas Brown MD Height/Weight Height: 5 ft Weight: 105.2 kg Allergies Allergy/AdvReac Type Severity Reaction Status Date / Time ergotamine AdvReac Intermediate Worsened Verified 06/07/24 13:12 headache, nausea ondansetron AdvReac Intermediate Worsened Verified 06/07/24 13:12 headache, nausea Medications Home Medications Medication Instructions Recorded Confirmed Last Taken gabapentin 400 mg capsule 400 mg PO TID 04/22/19 06/07/24 04/16/23 07:00 (Neurontin) baclofen 10 mg tablet 10 mg PO TID PRN Pain or Muscle 04/03/21 06/07/24 04/15/23 22:00 Spasms hydroxyzine pamoate 25 mg capsule 25 mg PO BID PRN Anxiety 10/07/21 06/07/24 01/09/22 (Vistaril) cholecalciferol (vitamin D3) 25 25 mcg PO QAM 09/24/22 06/07/24 04/15/23 08:00 mcg (1,000 unit) capsule (Vitamin D3) multivitamin 1 tab PO QAM 01/29/23 06/07/24 04/15/23 08:00 albuterol sulfate 90 mcg/actuation 90 mcg inhalation Q6H PRN 05/05/24 06/07/24 Unknown breath activated powder Shortness Of Breath Or Wheezing inhaler,sensor budesonide-formoterol HFA 80 2 puff inhalation BID PRN 05/05/24 06/07/24 Unknown mcg-4.5 mcg/actuation aerosol Shortness Breath inhaler (Symbicort) coenzyme Q10 200 mg capsule 200 mg PO DAILY 05/05/24 06/07/24 Unknown lactobacillus combination no.9 4 4,000 mmu cells PO DAILY 05/05/24 06/07/24 Unknown billion cell capsule (Adult 50 Plus Probiotic) pantoprazole 40 mg tablet,delayed 40 mg PO QAM 05/05/24 06/07/24 Unknown release (Protonix) pravastatin 40 mg tablet 40 mg PO QPM 05/05/24 06/07/24 Unknown secukinumab 150 mg/mL subcutaneous 150 mg subcut MONTHLY 05/05/24 06/07/24 Unknown syringe (Cosentyx) aspirin 81 mg tablet,delayed 81 mg PO QAM 06/01/24 06/07/24 Unknown release (Saad Low Dose Aspirin) acetaminophen 500 mg capsule 1,000 mg PO BID Pain 06/07/24 06/07/24 Unknown trazodone 100 mg tablet 100 mg PO HS PRN Insomnia 06/07/24 06/07/24 Unknown Past Medical History Medical History Anxiety and depression Arthritis of right hip CAD (coronary artery disease) PCI to mid [address] Lopez [facility] Degenerative disc disease Fibromyalgia GERD (gastroesophageal reflux disease) Herniated disc T10-11 History of COVID-19 01/2023 > resolved Hx MRSA infection Dx [place]; has had boils I&D in general surgeon's office at [facility] in the past, but it has been at least 1 year since she has had that done Hx of bronchitis No current issues - reason for inhalers Hyperlipidemia Hypertension Migraines Morbid obesity Peripheral neuropathy Bilateral Feet Psoriatic arthritis Follows with rheum and derm Restless legs syndrome Sleep apnea No device STEMI (ST elevation myocardial infarction) 2014 - x1 stent Temporomandibular joint disorder + clicking and locking, no recent locking Tongue mass Evaluated by oral maxillofacial surgery (Dr Waterman) Visit 06/01/24, plan for resection after orthopedic surgery; possible "benign Leiomyoma, schwannoma, fibroma or a similar lesion" Exercise / Class Metabolic Activity II 4-5 Yardwork/Stairs/Walk up hill Past Family History Family History Other Unobtainable family history due to adoption Past Surgical History Surgical History H/O shoulder surgery Left + biceps tendon repair History of ankle joint replacement (2008) Left History of appendectomy History of arthroplasty of left shoulder Left TSA (04/16/23): LMA#4 igel, good seal + regional at [facility] History of cardiac cath 2015- 1 stent to RCA 2018- Non-obstructive CAD (PH [place]) - Follows [facility] Cardiology Dr [place] History of cholecystectomy History of endometrial ablation History of esophagogastroduodenoscopy (EGD) History of heart artery stent 2014 x1 [facility] Cardiology Dr [place] History of incisional hernia repair from section scar History of [place]wood fundoplication History of tonsillectomy and adenoidectomy History of tooth extraction History of total hip arthroplasty Left History of total right knee replacement (01/13/22) Right TKA (01/13/22): SAB at L3-4 + PNB at [facility] Nausea and vomiting after administration of anesthetic agent "Sensitive to gas anesthetic" PONV, headache - "no problems with 03/2023 procedure" [facility] Previous section (1989) x1 Past Anesthesia History No Hx of Anesthesia Complications and No Family Hx of Anesthesia Complications History of PONV History of PONV ("Sensitive to gas anesthetic" PONV, headache - "no problems with 03/2023 procedure" [facility]) and Hx of Motion Sickness Social History Smoking Status: Current every day smoker tobacco type: cigarettes Smoking cigarettes per day: 1 PPD Do You Dip or Chew Tobacco: No Hx Alcohol Use: No Hx Substance Use: No substance use type: does not use Review of Systems Patient denies chest pain, shortness of breath, dyspnea on exertion, fever, chills, cough, wheezing. Physical Exam Vital Signs BP 111/51 P 53 TEMP 98.3 SP02 97%RA RESP 16 Physical Full cervical extension range of motion. Full TMJ range of motion. TMD > 3.5 finger breaths Mallampati Score I Dentition: missing sides/molars, + one crown Lungs: clear throughout to auscultation Cardiac: regular rate and rhythm, no murmurs noted Spine: normal Carotid arteries: negative bruit Extremities: no LE edema Short neck Right lateral tongue mass noted Lab Results Anesthesia Preop Results Results Anesthesia Widget: WBC 8.35 K/ul (4.8-10.8) 06/20/24 Hgb 13.7 g/dl (12.0-16.0) 06/20/24 Hct 41.5 % (37.0-47.0) 06/20/24 Plt 274 K/uL (130-400) 06/20/24 Na 141 mmol/L (136-145) 06/20/24 K 4.4 mmol/L (3.5-5.1) 06/20/24 Cl 106 mmol/L (98-107) 06/20/24 CO2 33 mmol/L (21-32) H 06/20/24 BUN 22 mg/dl (6-23) 06/20/24 Creat 0.82 mg/dl (0.6-1.2) 06/20/24 Glucose Level 96 mg/dl (70-99(Fasting)) 06/20/24 PT 10.2 Seconds (9.0-12.0) 06/20/24 PTT 29 Seconds (21-31) 06/20/24 INR 0.9 (0.9-1.1) 06/20/24 Blood Type A Negative 06/20/24 Antibody Screen NEGATIVE 06/20/24 Testing Electrocardiogram Date: 06/20/24 SB at 49bpm. Low voltage QRS. NS STA. Chest X-Ray Date: 06/20/24 FINDINGS: Stable mild cardiomegaly without pulmonary vascular congestion. Stable small hiatal hernia. Stable mildly hyperexpanded lungs. No effusion or consolidation. IMPRESSION: No acute findings. Echocardiogram Date: 12/23/23 EF 60%. Akinesis of the basal inferior septal and basal inferior dennison. This wall is thinned out and akinetic related to old LA. LVEF 60%. No LVH. Grade 1 diastolic dysfunction with intermediate LA pressure. No significant valvular disease. Trace likely physiologic pericardial effusion noted. Stress Test Date: 01/24/24 Negative exercise stress ECG or echo for ischemia at 72% MPHR; cannot exclude ischemia at higher heart rates. Akinesis of the basal inferior wall at rest that remains akinetic with exercise, consistent with infarct. 79% MPHR. 6.1 METS.
--- NOTE | 2024-07-07 07:20 | History & Physical Report ---
Date of Service July 07, 2024 Assessment & Plan (1) Arthritis of right hip: 54-year-old obese female status post multiple joint replacements in the past with underlying psoriatic arthritis with significant right hip pain failed conservative treatment. She like to proceed with hip replacement. Plan: Working to take her to the operating room the right total hip replacement. The risks met this procedure explained. Informed consent was obtained. Will use aspirin for DVT prophylaxis. She is no stay in the hospital overnight and hopeful discharge postop day 1 with energy PT. (2) Obesity: (3) Psoriatic arthritis: (4) Right knee DJD: (5) Fibromyalgia: (6) GERD (gastroesophageal reflux disease): History of Present Illness Chief Complaint: . Right hip pain. Primary Care Provider: DENISE Lorenzo . The patient is a 54-year-old female with a significant history of psoriatic arthritis and multiple joint issues in the past and replacements. I did a right knee replacement on her back in December 2021. She had her left hip replaced by Dr. Lemon in the past and a total ankle done in [place] in 2007. Dr. Hidalgo replaced her left shoulder in 2023. Over the past 2 years she developed increased pain discomfort in her right hip. She reports it being just like her left hip was years ago. Describes groin pain thigh pain and stiffness. He is having difficulty walking any distance at all. She is looking to have her hip fixed. Allergies Allergy/AdvReac Type Severity Reaction Status Date / Time ergotamine AdvReac Intermediate Worsened Verified 06/07/24 13:12 headache, nausea ondansetron AdvReac Intermediate Worsened Verified 06/07/24 13:12 headache, nausea Home Medications Medication Instructions Recorded Confirmed Type gabapentin 400 mg capsule 400 mg PO TID 04/22/19 06/07/24 History (Neurontin) baclofen 10 mg tablet 10 mg PO TID PRN Pain or Muscle 04/03/21 06/07/24 History Spasms hydroxyzine pamoate 25 mg capsule 25 mg PO BID PRN Anxiety 10/07/21 06/07/24 History (Vistaril) cholecalciferol (vitamin D3) 25 25 mcg PO QAM 09/24/22 06/07/24 History mcg (1,000 unit) capsule (Vitamin D3) multivitamin 1 tab PO QAM 01/29/23 06/07/24 History albuterol sulfate 90 mcg/actuation 90 mcg inhalation Q6H PRN 05/05/24 06/07/24 History breath activated powder Shortness Of Breath Or Wheezing inhaler,sensor budesonide-formoterol HFA 80 2 puff inhalation BID PRN 05/05/24 06/07/24 History mcg-4.5 mcg/actuation aerosol Shortness Breath inhaler (Symbicort) coenzyme Q10 200 mg capsule 200 mg PO DAILY 05/05/24 06/07/24 History lactobacillus combination no.9 4 4,000 mmu cells PO DAILY 05/05/24 06/07/24 History billion cell capsule (Adult 50 Plus Probiotic) pantoprazole 40 mg tablet,delayed 40 mg PO QAM 05/05/24 06/07/24 History release (Protonix) pravastatin 40 mg tablet 40 mg PO QPM 05/05/24 06/07/24 History secukinumab 150 mg/mL subcutaneous 150 mg subcut MONTHLY 05/05/24 06/07/24 History syringe (Cosentyx) aspirin 81 mg tablet,delayed 81 mg PO QAM 06/01/24 06/07/24 History release (Saad Low Dose Aspirin) acetaminophen 500 mg capsule 1,000 mg PO BID Pain 06/07/24 06/07/24 History trazodone 100 mg tablet 100 mg PO HS PRN Insomnia 06/07/24 06/07/24 History Past Med/Surg History Problem List (Updated 07/07/24 @ 07:25 by Andreas Brown MD) Obesity Arthritis of right hip Tongue mass Left knee DJD Iliopsoas bursitis of left hip Hip bursitis, left Osteoarthritis of left shoulder Encounter for pre-operative examination Right knee DJD Left lumbar radiculitis (Acute) Fibromyalgia Medical History Morbid obesity Arthritis of right hip Migraines Hx of bronchitis No current issues - reason for inhalers Tongue mass Evaluated by oral maxillofacial surgery (Dr Waterman) Visit 06/01/24, plan for resection after orthopedic surgery; possible "benign Leiomyoma, schwannoma, fibroma or a similar lesion" Fibromyalgia History of COVID-19 01/2023 > resolved Hx MRSA infection Dx [place]; has had boils I&D in general surgeon's office at [facility] in the past, but it has been at least 1 year since she has had that done Hypertension CAD (coronary artery disease) PCI to mid RCA [address] Lopez [facility] Herniated disc T10-11 Degenerative disc disease Psoriatic arthritis Follows with rheum and derm GERD (gastroesophageal reflux disease) Temporomandibular joint disorder + clicking and locking, no recent locking Anxiety and depression Restless legs syndrome Peripheral neuropathy Bilateral Feet Hyperlipidemia Sleep apnea No device STEMI (ST elevation myocardial infarction) 2015 - x1 stent Surgical History History of arthroplasty of left shoulder Left TSA (04/16/23): LMA#4 igel, [place] + regional at [facility] History of ankle joint replacement (2008) Left History of incisional hernia repair from section scar Previous section (1989) x1 History of total right knee replacement (01/13/22) Right TKA (01/13/22): SAB at L3-4 + PNB at [facility] History of cholecystectomy Nausea and vomiting after administration of anesthetic agent "Sensitive to gas anesthetic" PONV, headache - "no problems with 03/2023 procedure" [facility] History of endometrial ablation H/O shoulder surgery Left + biceps tendon repair History of total hip arthroplasty Left History of esophagogastroduodenoscopy (EGD) History of appendectomy History of Dawood fundoplication History of tooth extraction History of tonsillectomy and adenoidectomy History of cardiac cath 2014- stent to RCA 2018- Non-obstructive CAD (PH [place]) - Follows [facility] Cardiology Dr Morataya History of heart artery stent 2014 x1 [facility] Cardiology Dr Morataya Family History Other Unobtainable family history due to adoption Social History Smoking Status: Current every day smoker Tobacco Type: Cigarettes Cigarettes Per Day: 1 PPD; Second Hand Exposure: No; Do You Dip or Chew Tobacco: No; Tobacco Cessation Education Requested by Patient: No Hx Alcohol Use: No Hx Substance Use: No Preferred Language: Japanese Communication Ability: Effective Visual Impairment: No Limitations Reflexologist Required: No Beliefs That Will Affect Care: None marital status: Current Living Situation: Spouse current occupational status: unemployed Other Information That Helps Us Care for You: No Feels Safe at Home: Yes Safety Concerns: Feels Safe At This Time Assistive Devices: Cane and Glasses Review of Systems All systems reviewed & are unremarkable except as noted in HPI & below. Physical Exam . Physical examination reveals a pleasant middle-aged female who is moderately obese. Examination of the right hip and leg reveal patient to walks with a significantly antalgic gait. She really went limps when she first gets up and walks a little bit better as she walks further. She is probably have to centimeter short on that this side compared to the opposite side. She got a very stiff hip with very limited internal rotation. Her knee incision on the sides well-healed without signs of swelling. She is neurologically intact. Constitutional WD/WN, vitals as above Respiratory normal respiratory effort, lungs clear to auscultation Cardiovascular RRR, no murmur, no edema Gastrointestinal (Abdomen) normal bowel sounds, soft, nontender, no hepatosplenomegaly Results & Data Results & Data Laboratory Results . Diagnostic Findings . X-rays of the right hip were reviewed. Shows moderate to advanced hip arthritis. She got concentric loss of the joint space. Still has a little bit of joint space remaining. The left hip replacement looks to be in good position without problems. PG Care Time/CCT Total # of Minutes Spent Total Time Spent with Patient: Total time spent is greater than 50% in coordination of care (as documented) at patient's floor/unit and/or counseling patient: Coding Level of Care Code None Diagnoses Arthritis of right hip M16.11 Obesity E66.9 Psoriatic arthritis L40.50 Right knee DJD M17.11 Fibromyalgia M79.7 GERD (gastroesophageal reflux disease) K21.9
[2024-07-11] MEDS: LR 500ML BOLUS, THEN 15ML/HR IV SCH (05:54)
[2024-07-11] MEDS: CeleBREX 200 MG CAP PO SCH (06:10)
[2024-07-11] MEDS: LR 60ML/HR IV SCH (06:10)
[2024-07-11] MEDS: ACETAMINOPHEN 500 MG TAB PO SCH ×2 (06:10→12:16)
[2024-07-11] MEDS: METOCLOPRAMIDE HCL 10 MG TABLET PO SCH (06:11)
[2024-07-11] MEDS: FAMOTIDINE 20 MG TAB PO SCH (06:11)
[2024-07-11] MEDS: dexAMETHasone**PF** 10 MG/ML VIAL IV SCH (06:11)
[2024-07-11] MEDS ORDERED: ROPIVACAINE 0.5% 5 MG/ML 30 ML VIAL ONE (06:31)
[2024-07-11] MEDS ORDERED: MIDAZOLAM HCL 1 MG/ML 2ML VIAL ONE ×2 (06:34→07:01)
[2024-07-11] MEDS ORDERED: PROPOFOL IV EMULSION 10 MG/ML 20 ML VIAL IV ONE (06:37)
[2024-07-11] MEDS ORDERED: MoRPHine SULFATE PF 1 MG/ML 10 ML AMP/VIAL ONE (06:39)
[2024-07-11] MEDS ORDERED: KETAMINE HCL 10MG/ML SYR ONE (06:40)
[2024-07-11] MEDS ORDERED: LIDOCAINE 2% 2 ML VIAL/AMP(20MG/ML) INFIL ONE (06:40)
[2024-07-11] MEDS ORDERED: METOCLOPRAMIDE HCL INJ 5 MG/ML 2 ML VIAL ONE (06:41)
[2024-07-11] MEDS ORDERED: DEXAMETHASONE SOD INJ 4 MG/ML VIAL ONE (06:41)
[2024-07-11] MEDS: TRANEXAMIC ACID 1,000 MG **IV Pre-op IV SCH (06:42)
--- NOTE | 2024-07-11 06:48 | History & Physical Bridge Note ---
Date of Service July 11, 2024 History & Physical Bridge Note I have examined the patient, reviewed the History & Physical and in the interval since the performance of the History & Physical I have noted the following changes of clinical significance: no changes noted
[2024-07-11] MEDS ORDERED: NALOXONE HCL 1 MG in SODIUM CHLORIDE 0.9% 1,000 ML IV PRN (06:54)
[2024-07-11] MEDS ORDERED: PROMETHAZINE 6.25 MG/50.25 ML BAG IV PRN (06:54)
[2024-07-11] MEDS ORDERED: ePHEDrine sulfate 50 MG/ML AMP IV PRN (06:54)
[2024-07-11] MEDS ORDERED: MoRPHine SULFATE 2 MG/ML CARP IV PRN (06:54)
[2024-07-11] MEDS ORDERED: NALOXONE HCL 0.4 MG/1 ML VIAL/CARP IV PRN ×2 (06:54→11:05)
[2024-07-11] MEDS ORDERED: NALOXONE HCL 0.08 MG in SYRINGE 1.8 ML IV PRN (06:54)
--- OUTSIDE RECORDS SUMMARY | 2024-07-11 06:56 | External Medical Summary | Summary of Care ---
Author Name Unknown Organization [facility] Address [address] [place] [address] Phone [phone] Care Team Providers Care Lithographic Plate Maker Name Role Phone Luis Porterrocco WALKER Primary Care Provider + Encounter Details Date Type Department Care Team (Late st Contact Info) Description 06/26/2024 Orders Only Outcomes Research Department [address] [place] [address] Meredith Bingham CHRA [facility] Research Other*[id number] Allergies Active Allergy Reactions Criticality Noted Date Comments Ergotamine-Caffeine Nausea/vomiting High 08/27/2016 Pregabalin 06/07/2019 Suicidal ideations. Ondansetron Nausea/vomiting High 06/19/2016 documented as of this encounter (statuses as of 06/26/2024) Medications aspirin enteric coated 81 MG TBEC Take 1 Tablet by mouth in the morning. Active Acetaminophen ER 650 MG Oral Tablet Extended Release Take 1 Tablet by mouth every 8 hours as needed for Fever. Active Symbicort 80-4.5 MCG/ACT Inhalation Aerosol inhale 2 puffs by mouth and INTO THE LUNGS twice a day 2 Active hydrOXYzine Pamoate 50 MG Oral Capsule (Vistaril)Indica tions:Moderate episode of recurrent major depressive disorder (HCC),DEANN (generalized anxiety disorder) take 1 capsule by mouth twice a day if needed for anxiety Strength: 50 mg 60 Capsule 5 2 Active Baclofen 10 MG Oral Tablet (Lioresal)Indica tions:Pain in joint of left shoulder,Neck sprain, initial encounter Take 1 Tablet by mouth 3 times a day as needed for Pain. 90 Tablet 1 3 Active Gabapentin 400 MG Oral Capsule (Neurontin)Indic ations:Fibromyal kali take 1 capsule by mouth three times a day 90 Capsule 4 3 Active Pantoprazole Sodium 20 MG Oral Tablet Delayed Release (Protonix)Indica tions:Moderate episode of recurrent major depressive disorder (HCC),DEANN (generalized anxiety disorder) take 1 tablet by mouth every morning 90 Tablet 3 Active Nitroglycerin 0.4 MG Sublingual Tablet Sublingual (Nitrostat) place 1 tablet under the tongue if needed every 5 minutes for sandra... (REFER TO PRESCRIPTION NOTES). 4 Active Pravastatin Sodium 20 MG Oral Tablet (Pravachol) Take 1 Tablet by mouth every evening. Active Wegovy 0.25 MG/0.5ML Subcutaneous Solution Auto-injector weekly Active Naproxen Sodium 220 MG Oral Tablet (Aleve) 1 Tablet. As needed 4 Active Betamethasone Dipropionate 0.05 % External Cream (Diprosone) Apply topically to affected area 2 times a day. Active Cosentyx Sensoready Pen 150 MG/ML Subcutaneous Solution Auto-injector (Secukinumab)Ind ications:PSA (psoriatic arthritis) (FORMERLY [facility]) Inject 1 mL under the skin every 4 weeks. 2 mL 2 05/29/2024 8:49 AM EST 5 Active documented as of this encounter (statuses as of 06/26/2024) Active Problems Problem Noted Date Diagnosed Date Body mass index (BMI) of 45.0 to 49.9 in adult 1 04/10/2022 Overview: Per Obesity protocol PSA (psoriatic arthritis) 02/03/2023 Encounter for long-term (current) use of medicat ions 02/03/2023 History of left hip replacement 09/11/2022 History of total right knee replacement 09/12/19 23 Food insecurity 03/09/2022 Overview: Per [facility] Protocol Primary osteoarthritis of right knee 06/07/2019 Morbid obesity due to excess calories 06/07/2019 S/P angioplasty with stent 06/07/2019 History of myocardial infarction 06/07/2019 Moderate episode of recurrent major depressive d isorder 06/07/2019 HTN, goal below 130/80 06/07/2019 DEANN (generalized anxiety disorder) 06/07/2019 Fibromyalgia 06/07/2019 Arthritis 06/07/2019 Primary insomnia 06/07/2019 S/P Dawood fundoplication (w ithout gastrostomy tube) procedure 06/07/2019 Coronary artery disease invo lving eagle coronary artery of eagle heart without angina pectoris 06/07/2019 Mixed hyperlipidemia 06/07/2019 Vitamin D deficiency 06/07/2019 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 0 to 44.9 in adult 07/28/2016 05/13/2022 Overview (12/28/2019): ICD-10 update of inactive term documented as of this encounter (statuses as of 06/26/2024) Immunizations Name Administration Dates Next Due COVID-19 mRNA, LNP-s, No Pre serve, 2-Dose Series (Pfizer) 01/05/2021,11/20/2020 Pneumococcal Conjugate Vacci ne, 20-valent ([id number]) 05/05/2022 Pneumococcal Polysaccharide PPV23 (Pneumovax) 09/12/2016,05/02/2014 Seasonal Influenza Vac., MDV , IM, 0.5 mL (Fluzone) 12/30/2014,05/02/2014 Seasonal Influenza Virus Vac cine, Unspecified Formulation 03/01/2020,03/09/2017,09/12/2016,12/30,05/02/2014 Seasonal Influenza, PF, 6 M & above, IM , (FluLaval or Fluzone) 02/03/2023,05/05/2022,03/01/2020 Seasonal Influenza, QUAD, wi th Preserv, 6 mons & Above, 0.5 mL, IM 04/12/2024 Seasonal Influenza, QUAD, wi th Preserv, 6-35 months, 0.25 mL, IM 03/17/2019 TDAP (age 10 and older)(Boostrix) 03/01/2020 Zoster Vaccine Recombinant (Shingrix) 03/01/2020 documented as of this encounter Social History Tobacco Use Types Packs/Day Years Used Date Smoking Tobacco: Every Day Cigarettes 1 25 Smokeless Tobacco: Never Alcohol Use Standard Drinks/Week Comments No 0 (1 standard drink = 0.6 oz pur e alcohol) PHQ-2 Answer Date Recorded PHQ Adult Total Score 0 09/13/2020 Hunger Vital Sign Answer Date Recorded Within the past 12 months, y ou worried that your food would run out before you got the money to buy more. Sometimes true Within the past 12 months, t he food you bought just didn't last and you didn't have money to get more. Sometimes true 07/2021 Comments No Sex and Gender Information Value Date Recorded Sex Assigned at Female 03/02/2022 6:43 AM EST Legal Sex Female 6:14 AM EST Gender Identity Female 03/02/2022 6:43 AM EST Sexual Orientation Straight 03/02/2022 6: 43 AM EST documented as of this encounter Plan of Treatment Upcoming Encounters Date Type Department Care Team (Late st Contact Info) Description 04/24/2025 10:40 AM EST Office Visit Rheumatology [facility] [address] [place] [phone] [facility]ue [facility] [address] [facility] [id number] Scheduled Orders Name Type Priority Associated Diagnoses Orde r Schedule MYCODE INITIAL ADULT Lab Routine MyCode Research Other*[id number] Expected: 06/26/2024 (Approximate), Expires: 07/16/2025 Health Maintenance Due Date Last Done Comments DISCUSS TOBACCO CESSATION (REFER TO SMARTSET #7368) 1969 HIV Screening 1984 Hepatitis B Vaccine (1 of 3 - 19+ 3-dose series) 1988 HPV/Co-Test 06/10/1999 Cologuard 2014 Colonoscopy 2014 Sigmoidoscopy 2014 Cervical Cancer Screening 05/22/2018 Pap Smear 05/22/2018 05/22/2015 Lung Cancer Screening 06/10/2019 08/20/2016 Zoster Vaccines (2 of 2) 04/26/2020 03/01/2020 COVID-19 Vaccine (3 - Pfizer risk series) 02/02/2021 01/05/2021, 11/20/2020 Depression Monitoring 09/13/2021 09/13/2020 Colorectal Cancer Screening 10/25/2021 Fecal Occult Blood Test 10/25/2021 10/25/2020 Mammogram 06/27/2022 06/27/2021, 04/0 03/2021, 06/27/2021 GFR 04/20/2025 04/20/2024, 0608/2022, 03/04/2022, Additional history exists Albumin/Creatinine Ratio 09/11/2025 09/11/2022, 08/0 11/2020 Diabetes Screening 04/20/2027 04/20/2024, 0 09/11/2022, 09/11/2022, Additional history exists DTap/Tdap Vaccines (2 - Td or Tdap) 03/01/2030 03/01/2020, 04/21/2000 Pneumococcal Vaccine: 50+ Years Completed 05/05/2022, 09/12/2016, 05/02/2014 Influenza Vaccine (FLU shot) Completed , 02/03/2023, 05/05/2022, Additional history exists HPV (Gardasil) Vaccine Aged Out No lo nger eligible based on patient's age to complete this topic MENINGOCOCCAL (MENACTRA/MENVEO) Aged Out No longer eligible based on patient's age to complete this topic Meningitis B Vaccine (Bexsero/Trumemba) Aged Out No longer eligible based on patient's age to complete this topic documented as of this encounter Medical Devices Not on filedocumented as of this encounter Visit Diagnoses Diagnosis MyCode Research Other*[id number] documented in this encounter Care Teams Lithographic Plate Maker Relationship Specialty Start Date End Date Tiana Porter CRNP PCP - General Nurse Practitioner 03/17/23 documented as of this encounter
[2024-07-11] MEDS: ceFAZolin 2000MG 2,000 MG/15 ML SYR IV SCH ×2 (06:58→15:50)
[2024-07-11] MEDS ORDERED: NO NARCOTICS OR SEDATIVES SCH (07:00)
[2024-07-11] MEDS ORDERED: DC INTRASPINAL MORPHINE SCH (07:00)
[2024-07-11] MEDS ORDERED: ePHEDrine sulfate 50 MG/5 ML SYR ONE (07:16)
[2024-07-11] MEDS ORDERED: PHENYLEPHRINE 100MCG/ML 5ML SYR ONE (07:16)
[2024-07-11] MEDS ORDERED: DROPERIDOL 5 MG/2 ML VIAL ONE (07:17)
[2024-07-11] MEDS ORDERED: diphenhydrAMINE 50 MG/ML VIAL ONE (07:29)
[2024-07-11] MEDS: BUPIVACAINE/EPINEPHRINE 0.5% MPF 1:200,000 30 ML VIAL ONE (07:37)
--- NOTE | 2024-07-11 09:05 | Operative Report ---
PG Post Operative Report Pre & Post Diagnosis Operation Date: 07/11/24 07:00 Pre-Op Diagnosis: Right Hip Osteoarthritis Post-Op Diagnosis: Right Hip Osteoarthritis I identified the patient and participated in the time-out.: Yes Procedure Operation Date: 07/11/24 07:00 Actual Procedures p Right Total Hip Arthroplasty(Right) - Andreas Brown MD Surgeon Andreas Brown MD Senior Research Associate José Antonio Tan PA-C Estimated Blood Loss 150 Findings Consistent with Post-Op Diagnosis Specimens Right femoral head sent for pathology. Anesthesia Type Spinal MAC Complications none Disposition Accompanied Patient To Recovery: No Indications Patient is a 54-year-old female with underlying psoriatic arthritis. She has had a long history of low multiple arthritic joints and had multiple surgeries as well. Over the past 2 years she developed increased pain discomfort in her right hip. X-rays show progressive hip arthritis. She failed conservative measures. She elected proceed with total hip arthroplasty. Description of Procedure Operative implants consists of: 1 Biomet G7 size 48 mm acetabular shell. 2. 6.5 cancellous acetabular screws 1 at 35 mm in length and 125 mm length. 3. [place] hole revenue officer. 4. Highly cross-linked polyethylene liner without 48 mm outer diameter and 32 mm inner diameter. 5. DePuy Karaya I size 11 KLA femoral stem. 6. +1/32 mm ceramic articular ball. The patient was taken the operating, identified, placed on the operating table in the supine position. All conductors were appropriately padded. IV antibiotics arrived by the anesthesia team. A spinal anesthetic had been implemented holding area. Veronica catheter was placed in sterile fashion. The patient was then placed in the left lateral cubitus position. An axillary roll was placed. A stool Birkett position was used for positioning. The right hip and leg were then prepped and draped in usual sterile fashion. A posterolateral approach to the right hip was then performed through a curvilinear incision centered over the greater trochanter. Sharp dissection Through subcutaneous tissue down the level of the IT band gluteal fascia. The IT band gluteal fascia was sized longitudinally in line with skin incision. The underlying greater bursa was excised. The piriformis and external rotators along with the posterior hip joint capsule then released from the posterior aspect of the hip as a single layer. Great care was taken throughout the procedure protect the sciatic nerve at all times. The hip was internally rotated and dislocated. A femoral neck osteotomy cut was made with Final Cut about 10 mm above the lesser trochanter. Femoral head was removed and sent for pathology. The femur was retracted anteriorly. Attention then drawn the acetabulum. The acetabular labrum was excised. The pulmonary fat was excised. Sequential reaming the acetabulum was then performed beginning the size 43 and progressing up to 47. I reamed a little with a 48 reamer and then placed a 48 mm Biomet acetabular cup in about 40 degrees lateral opening and 20 degrees of anteversion. It was fixed with two 6.5 screws. A trial liner was placed. Attention drawn the femur. The proximal femur was entered with cookie-cutter followed by canal finder . I then broached again the size 8 and progressing up to 11. Get excellent fit 11. We trialed the hip. The +5 articular bulges seemed a bit too tight. The +1 seem to recreate appropriate soft tissue tension and excellent stability. We elect to place his implants. All trial implants were removed. An apex hole revenue officer was placed. Highly cross-linked polyethylene liner was placed. A size 11 KLA femoral stem was impacted in position. A +1/32 mm ceramic articular ball was placed. Hip was located once again found to be stable. Attention drawn toward closing. The wound was irrigated coconuts with pulsatile lavage solution. I did inject locally with 60 cc of half percent Marcaine with epinephrine. The posterior capsule and external rotators were then repaired to drill holes in the posterior trochanter with #2 Tycron suture. The IT band gluteal fascia was then closed #1 PDS suture in a running fashion. Subcutaneous tissues then closed with 2 layers of the deep layer #2-0 Vicryl suture in the subcutaneous tissues with 2-0 Dexon suture in a buried interrupted fashion. Skin was then closed with skin kourtney. Leg was then cleaned and dried and a Prevena VAC dressing was applied due to the very large soft tissue envelope. The patient was then transferred to the recovery room in stable condition. The patient tolerated procedure well and there are no complications. José Antonio Tan, my physician project administrative assistant, was present for the entire procedure. His assistance was essential and required for appropriate patient positioning, prepping and draping, surgical exposure, performing the technical details of the operation, placement the implants, closure of the wound, and placement of the sterile bandage. I attest to the content of the Intraoperative Record and any orders documented therein. Any exceptions are noted below.
--- NOTE | 2024-07-11 09:17 | XRay Report ---
XR hip 1V RT w pelvis CLINICAL HISTORY: IN PACU - Post Surgical COMPARISON: None FINDINGS: Bilateral hip prostheses show no hardware complication. There is expected soft tissue gas on the right with lateral skin kourtney. IMPRESSION: Unremarkable postoperative exam. ACT 112: Negative or not required by law. Electronically signed by: Jevon Diop M.D. 07/11/2024 9:15 AM
--- NOTE | 2024-07-11 09:59 | Anesthesiology Progress Note ---
Date of Service July 11, 2024 Anesthesia Post Procedure Vital Signs Vital Signs: Temp Pulse Pulse Resp BP Pulse Ox O2 Del Method 07/11/24 09:50 52 L 14 123/61 98 Nasal Cannula 07/11/24 09:35 36.5 C 52 L 12 133/65 98 Nasal Cannula 07/11/24 09:20 68 18 137/70 98 Oxymask 07/11/24 09:10 53 L 19 148/63 H 99 Oxymask 07/11/24 09:00 57 L 18 143/67 H 98 Oxymask 07/11/24 08:50 36.4 C L 51 L 19 116/65 97 Oxymask 07/11/24 05:49 36.8 C 52 L 20 120/90 94 Room Air O2 Flow Rate 07/11/24 09:50 2 07/11/24 09:35 2 07/11/24 09:20 2 07/11/24 09:10 2 07/11/24 09:00 4 07/11/24 08:50 4 07/11/24 05:49 Pain Intensity Right Hip: Pain Intensity: 8 Transfer of Care Handoff Completed per policy Notes Mental Status: alert / awake / arousable Patient Amnestic to Procedure: Yes Nausea / Vomiting: adequately controlled Pain: adequately controlled Airway Patency, RR, SpO2: stable & adequate BP & HR: stable & adequate Hydration State: stable & adequate Neuraxial Anesthesia: was administered and sensory block is resolving Anesthetic Complications: no major complications apparent
[2024-07-11] MEDS ORDERED: MAGNESIUM HYDROXIDE SUSP 30 ML UDC PO PRN (11:05)
[2024-07-11] MEDS ORDERED: METOCLOPRAMIDE HCL INJ 5 MG/ML 2 ML VIAL IV PRN (11:05)
[2024-07-11] MEDS ORDERED: SECUKINUMAB 150 MG/ML SQ SCH (11:05)
[2024-07-11] MEDS ORDERED: BUDESONIDE/FORMOTEROL FUMARATE 80/4.5 60 PUFFS/INHALER INH PRN (11:05)
[2024-07-11] MEDS ORDERED: BACLOFEN 10 MG TAB PO PRN (11:05)
[2024-07-11] MEDS ORDERED: ALUMINUM/MAGNESIUM SUSP 30 ML UDC PO PRN (11:05)
[2024-07-11] MEDS ORDERED: bisacodyL 10 MG SUPP PR PRN (11:05)
[2024-07-11] MEDS ORDERED: ALBUTEROL HFA INHALER 8.5 GM INH PRN (11:23)
[2024-07-11] MEDS: MoRPHine SULFATE PF 1 MG/ML 10 ML AMP/VIAL INT SPINAL ONE (11:32)
[2024-07-11] MEDS ORDERED: FLUTICASONE/VILANTEROL 100/25MCG 14 PUFFS/INHALER INH PRN (11:32)
[2024-07-11] MEDS: NON-FORMULARY MEDICATION (Coenzyme Q10 200 mg capsule) PO SCH (11:47)
[2024-07-11] MEDS: NON-FORMULARY MEDICATION (Multivitamin Tablet) PO SCH (11:47)
[2024-07-11] MEDS: KETOROLAC 30 MG/ML VIAL IV SCH (12:15)
[2024-07-11] MEDS: PANTOprazole 40 MG TAB PO SCH (12:15)
[2024-07-11] MEDS: GABAPENTIN 400 MG CAP PO SCH (12:15)
[2024-07-11] MEDS: MULTIVITAMIN TAB PO SCH (12:15)
[2024-07-11] MEDS: SENNA 8.6 MG TAB PO SCH ×2 (12:15→22:24)
[2024-07-11] MEDS: DOCUSATE SODIUM 100 MG CAP PO SCH (12:15)
[2024-07-11] MEDS: TRANEXAMIC ACID / 0.7% NACL 1,000 MG/100 ML BAG IV SCH (15:50)
[2024-07-11] MEDS: ASCORBIC ACID 500 MG TAB PO SCH (17:01)
[2024-07-11] MEDS: diphenhydrAMINE 50 MG/ML VIAL IV PRN (20:22)
[2024-07-11] MEDS: NICOTINE 14 MG/24 HR PATCH TD SCH (20:22)
[2024-07-11] MEDS: ASPIRIN 81 MG ECTAB PO SCH (22:24)
[2024-07-11] MEDS: PRAVASTATIN SOD 40 MG TAB PO SCH (22:25)
[2024-07-11] MEDS: NALBUPHINE HCL INJ 10 MG/ML AMP IV PRN (22:44)
[2024-07-12] MEDS ORDERED: traZODone HCL 100 MG TAB PO PRN (00:55)
[2024-07-12] MEDS ORDERED: HYDROmorphone INJ 0.5 MG/0.5 ML SYR IV PRN (00:55)
[2024-07-12] MEDS ORDERED: hydrOXYzine HCl 25 MG TAB PO PRN (00:55)
[2024-07-12] MEDS ORDERED: ONDANSETRON INJ 2 MG/ML 2 ML VIAL IV PRN (00:55)
[2024-07-12] MEDS: traMADol HCL 50 MG TABLET PO PRN (03:21)
[2024-07-12] MEDS: traZODone HCL 50 MG TAB PO PRN (03:28)
[2024-07-12 06:00] VITALS: O2SAT 92
[2024-07-12 07:18] VITALS: BP 101/62; PULSE 54; RESP 18; TEMP 97.9
--- NOTE | 2024-07-12 08:00 | Orthopedic Progress Note ---
Date of Service July 12, 2024 Assessment & Plan (1) Status post right hip replacement: Plan: 54-year-old female postop day 1 from a right uncemented hip replacement. She is doing quite well. Pains controlled. Hips located. She is neurologically intact. Plan: 1. DVT prophylaxis including thigh-high teds, SCDs, aspirin twice a day. 2. PT/OT. Weight-bear as taught. Right total hip protocol. 3. Pain control. Doing well with current pain regimen. 4. Wound management. She got a Prevena VAC dressing in place. That will stay on for 7 days. 5. Disposition. Plan is to discharge to home with some home health after therapy today. (2) Obesity: (3) Psoriatic arthritis: Admission and Anticipated Discharge Date Admission Date: July 11, 2024 Subjective 54-year-old female with underlying psoriatic arthritis now postop day 1 from a right uncemented hip replacement. She is doing well this morning. She did get up and walk some yesterday. Pains been very well-controlled. No chest pain or shortness of breath. Not feeling dizzy or lightheaded. Physical Exam Physical Exam: Physical examination was a pleasant middle-aged female. Lying bed looks pretty comfortable this morning. Examination of the right hip and leg reveals the leg lengths to be equal. The Prevena VAC dressing is clean dry and intact. Thigh is soft and supple. She can dorsiflex and plantarflex her foot appropriately. Respiratory: normal respiratory effort, lungs clear to auscultation Cardiovascular: RRR, no murmur, no edema Gastrointestinal (Abdomen): normal bowel sounds, soft, nontender, no hepatosplenomegaly Results & Data Vital Signs (Past 12 Hours) Vital Signs Temp Pulse Resp BP BP Pulse Ox O2 Del Method 07/12/24 07:15 36.6 C 54 L 18 101/62 92 Room Air 07/12/24 05:58 92 Room Air 07/12/24 02:31 36.7 C 64 16 98/61 L 96 Nasal Cannula 07/12/24 00:01 16 96 07/11/24 23:14 16 94 07/11/24 23:14 37.0 C 59 L 16 101/63 94 Nasal Cannula 07/11/24 22:01 16 94 07/11/24 21:04 14 95 07/11/24 19:58 18 96 O2 Flow Rate 07/12/24 07:15 07/12/24 05:58 07/12/24 02:31 2 07/12/24 00:01 07/11/24 23:14 07/11/24 23:14 2 07/11/24 22:01 07/11/24 21:04 07/11/24 19:58 Laboratory Results Labs are pending.
[2024-07-12 08:38] LABS: Basophils # (auto) 0.03 K/uL (0.00-0.20); Basophils % (auto) 0.2 %; Eosinophils # (auto) 0.01 K/uL (0.00-0.50); Eosinophils % (auto) 0.1 %; Hematocrit (blood only) 38.8 % (37.0-47.0); Hemoglobin 12.3 g/dl (12.0-16.0); Immature Granulocytes # (auto) 0.08 K/uL (0.01-0.20); Immature Granulocytes % (auto) 0.4 %; Lymphocytes # (auto) 2.44 K/uL (1.20-3.40); Lymphocytes % (auto) 13.6 %; Mean Corpuscular Hemoglobin 31.6 pg (25.0-34.0); Mean Corpuscular Hgb Conc 31.7 g/dL (32.0-36.0); Mean Corpuscular Volume 99.7 fL (80.0-100.0); Mean Platelet Volume 9.2 fL (9.4-12.4); Monocytes # (auto) 1.28 K/uL (0.11-0.59); Monocytes % (auto) 7.1 %; Neutrophils # (auto) 14.14 K/uL (1.40-6.50); Neutrophils % (auto) 78.6 %; Platelet Count 243 K/uL (130-400); RDW Coefficient of Variation 12.4 % (11.5-14.5); RDW Standard Deviation 45.5 fL (36.4-46.3); Red Blood Count 3.89 M/uL (4.20-5.40); White Blood Count 17.98 K/ul (4.8-10.8)
[2024-07-12] MEDS: ADVANCED PROBIOTIC 625 MG CAPSULE PO SCH (08:43)
[2024-07-12] MEDS: dexAMETHasone 10 MG in SYRINGE 0 ML IV SCH (08:45)
[2024-07-12 09:06] LABS: Calcium 8.8 mg/dl (8.6-10.3); Potassium 3.9 mmol/L (3.5-5.1)
[2024-07-12 09:12] LABS: BUN Creatinine Ratio 31.9 (10-20); Creatinine Clr Calc Pharmacy 96.2 ml/min
--- NOTE | 2024-07-12 11:54 | Discharge Summary ---
Date of Service July 12, 2024 Admission HPI (Per Admitting) . The patient is a 54-year-old female with a significant history of psoriatic arthritis and multiple joint issues in the past and replacements. I did a right knee replacement on her back in December 2021. She had her left hip replaced by Dr. Lemon in the past and a total ankle done in [place] in [address]. Dr. Hidalgo replaced her left shoulder in 2023. Over the past 2 years she developed increased pain discomfort in her right hip. She reports it being just like her left hip was years ago. Describes groin pain thigh pain and stiffness. He is having difficulty walking any distance at all. She is looking to have her hip fixed. 54-year-old obese female status post multiple joint replacements in the past with underlying psoriatic arthritis with significant right hip pain failed conservative treatment. She like to proceed with hip replacement. Plan: Working to take her to the operating room the right total hip replacement. The risks met this procedure explained. Informed consent was obtained. Will use aspirin for DVT prophylaxis. She is no stay in the hospital overnight and hopeful discharge postop day 1 with [facility]. Admission Exam (Per Admitting) . Physical examination reveals a pleasant middle-aged female who is moderately obese. Examination of the right hip and leg reveal patient to walks with a significantly antalgic gait. She really went limps when she first gets up and walks a little bit better as she walks further. She is probably have to centimeter short on that this side compared to the opposite side. She got a very stiff hip with very limited internal rotation. Her knee incision on the sides well-healed without signs of swelling. She is neurologically intact. Constitutional WD/WN, vitals as above Respiratory normal respiratory effort, lungs clear to auscultation Cardiovascular RRR, no murmur, no edema Gastrointestinal (Abdomen) normal bowel sounds, soft, nontender, no hepatosplenomegaly Principal Diagnosis Same as "Discharge Diagnosis" noted below under Discharge Instructions. Discharge Exam Physical Exam: Physical examination was a pleasant middle-aged female. Lying bed looks pretty comfortable this morning. Examination of the right hip and leg reveals the leg lengths to be equal. The Prevena VAC dressing is clean dry and intact. Thigh is soft and supple. She can dorsiflex and plantarflex her foot appropriately. Respiratory: normal respiratory effort, lungs clear to auscultation Cardiovascular: RRR, no murmur, no edema Gastrointestinal (Abdomen): normal bowel sounds, soft, nontender, no hepatosplenomegaly Discharge Data Procedures Performed Operation Date: 07/11/24 07:00 Actual Procedures p Right Total Hip Arthroplasty(Right) - Andreas Brown MD Hospital Course (1) Status post right hip replacement: (2) Aftercare following right hip joint replacement surgery: Plan On July 11, 2024 Silvia arrived at [facility] operating room and underwent a right total hip replacement without complications. Patient had a spinal anesthetic and monitored sedation for the procedure. Postoperati vely, patient was transferred to the general orthopedic floor in stable condition and eventually started onto aspirin 81 mg twice daily for DVT prophylaxis as appropriate. Patient's hospital course was uneventful. On postoperative day #1, patient's vital signs were stable and pain was well- controlled. Patient was able to participate well with physical therapy, safely performing the necessary ambulation and range of motion exercises and properly demonstrating ADL tasks. Patient was then discharged home in stable condition, with [facility] services to begin. Patient will follow-up with orthopedics in 2 to 3 weeks for postoperative care. PG Care Time/CCT Total # of Minutes Spent Total Time Spent with Patient: Total time spent is greater than 50% in coordination of care (as documented) at patient's floor/unit and/or counseling patient: Discharge Plan Discharge Items Patient Disposition: Home - Home Health Services Reason For Visit: Right Hip Osteoarthritis Discharge Diagnosis: Right Hip Replacement Activity: Per Instructions section Activity Comment: Follow/Obey hip precautions at all times. Weightbearing: Full weightbearing Weightbearing Comment: Weightbear as tolerated obeying hip precautions at all times. Non-emergency contact: Surgeon Call non-emergency contact if: you have any medication questions Follow-up/Referrals: Andreas Brown MD [Physician] - (07/27/24 @ 11:40) Tiana Porter CRNP [Primary Care Provider] - Diet: Regular Addtl Attending Provider Instructions: ACTIVITY RECOMMENDATIONS: Diet: * You may resume previous diet. Physical Therapy: * Aggressive physical therapy is not usually needed. You will learn to take care of yourself safely and walk. * Follow the "Hip Precautions Instructions." * In some cases, the social work coordinator at the hospital will arrange to have a therapist come to your house for the first couple of weeks to help you learn these skills. * You need to practice on your own or with the help of a family member as needed. * When you learn these skills, most of the therapy can be done on your own. Home Exercise: * You were shown a series of exercises in the hospital. Do these exercises three to four times each day including the exercises you were shown in physical therapy. Walking: * Get up and walk several times each day. For the first four weeks, try not to stand or walk for more than one hour at a time. If you do stand or walk for more than one hour, you will not hurt anything, but your leg will likely swell. * As you feel comfortable, you may change from the walker or crutches to a cane and then to independent walking. MEDICATIONS: New Medicine: * You will likely be taking one or more of these medicines: 1. Tramadol - Take, as directed, when you need it, every six hours to control your pain. 2. Aspirin - Thins your blood to lessen the chance of forming a blood clot. * The most common side effects of pain medicine and iron are nausea and constipation. If nausea or constipation is too much of a problem or if you have any questions about your new medicines or doses, call [facility] at . We will try to help you manage these issues. "VERY IMPORTANT TO READ AND REVIEW" Pain: * The immediate post-operative period after hip replacement surgery is often quite painful. * You are given a prescription for pain medicine. You should take it, as directed, when you need it, especially before physical therapy and before going to bed. Pain that interferes with sleep is very common and can last several months. * You will likely need pain medicine for the first two to four weeks. It will not stop all of the pain. The pain will lessen and as you feel better, you may change to milder pain medicine such as Tylenol. * The most common side effects of pain medicine are nausea and constipation, so don't take more than you need. SPECIAL CARE INSTRUCTIONS: TEDs/Elastic Stockings: * The white elastic stockings help limit swelling and prevent blood clots from forming in your legs. The more you wear them, the more they work. * Wear them for six weeks. Incision Site Care: * Remove dressing postoperative day 7. Keep direct shower pressure off the incision site. * After showering, cover sea with dry gauze and change daily or more frequently if the dressing is getting saturated with drainage. * May completely stop using bandage if wound is dry and no drainage * Sea are removed between 2 and 3 weeks post-op. If your follow-up appointment is made before 2 weeks, please have your appointment re- scheduled. It is too early to remove the sea. Prevention of Infection: * Take antibiotics one hour before any dental cleaning, dental work, urological procedure, gastrointestinal procedure or any invasive surgery in order to prevent your new joint from getting infected. * You may get the antibiotics from the doctor performing the procedure or you may call our office at before and we will call in a prescription to the pharmacy of your choice. Things to Watch For: * Drainage from the incision site that occurs more than one week after your surgery. * Severely increased leg pain or swelling. * Increased redness at the incision site. * Fever above 102 degrees Fahrenheit. * Unusual chest pain or shortness of breath. * Unusual pain or burning with urination. Call [facility] at with any of the above problems or if you have any questions about your medicines or recovery. FOLLOW UP VISIT: Make an appointment to see your doctor for approximately two weeks after surgery for a progress check and staple removal by calling the office at . Pending Studies at Discharge: No Stand-Alone Forms: My [facility], Smoking Cessation Medications and DC Order Prescriptions: Continued tramadol 50 mg tablet 50 - 100 mg PO Q6 PRN (Reason: pain) Qty: 40 0RF Rx Instructions: Take as needed for pain ondansetron 4 mg tablet,disintegrating 4 mg PO Q8 PRN (Reason: nausea) Qty: 20 1RF Rx Instructions: Take as needed for nausea ketorolac 10 mg tablet 10 mg PO Q6 5 Days Qty: 20 0RF Rx Instructions: Take 4 times per day with food for 5 days to lessen pain and swelling. sennosides [Senokot] 8.6 mg tablet 8.6 mg PO BID 14 Days Qty: 28 0RF Rx Instructions: Take two times a day to prevent/treat constipation acetaminophen [Tylenol Extra Strength] 500 mg tablet 1,000 mg PO TID 30 Days Qty: 180 0RF Rx Instructions: Take 3 times per day to lessen pain. aspirin [Saad Low Dose Aspirin] 81 mg tablet,delayed release (DR/EC) 81 mg PO BID 45 Days Qty: 90 0RF Rx Instructions: Take to prevent blood clots. cefadroxil 500 mg capsule 500 mg PO BID 7 Days Qty: 14 0RF Rx Instructions: Take 1 cap twice a day to prevent infection baclofen 10 mg tablet 10 mg PO TID PRN (Reason: Pain or Muscle Spasms) albuterol sulfate 90 mcg/actuation aero powdr breath act w/sensor 90 mcg inhalation Q6H PRN (Reason: Shortness Of Breath Or Wheezing) coenzyme Q10 200 mg capsule 200 mg PO DAILY Cosentyx 150 mg/mL syringe 150 mg subcut MONTHLY pantoprazole [Protonix] 40 mg tablet,delayed release (DR/EC) 40 mg PO QAM pravastatin 40 mg tablet 40 mg PO QPM Adult 50 Plus Probiotic 4 billion cell capsule 4,000 mmu cells PO DAILY Rx Instructions: administer with a meal budesonide-formoterol [Symbicort] 80-4.5 mcg/actuation HFA aerosol inhaler 2 puff inhalation BID PRN (Reason: Shortness Breath) gabapentin [Neurontin] 400 mg capsule 400 mg PO TID hydroxyzine pamoate [Vistaril] 25 mg Capsule 25 mg PO BID PRN (Reason: Anxiety) multivitamin Tablet 1 tab PO QAM trazodone 100 mg tablet 100 mg PO HS PRN (Reason: Insomnia) Discontinued aspirin [Saad Low Dose Aspirin] 81 mg tablet,delayed release (DR/EC) 81 mg PO QAM Rx Instructions: Take to prevent blood clots. acetaminophen 500 mg capsule 1,000 mg PO BID Rx Instructions: Take 2 times per day to lessen pain. Admission Data Admit Date/Time: 07/11/24 08:57 Attending Provider: Andreas Brown Admit Provider: Andreas Brown Primary Care Provider: Tiana Porter Other Interventions: Discharge Summary Assessment (RN) Last Done: 07/12/24 11:49
== END 2024-07-12 12:15 | disposition home health service (06) ==
LOC: 3W 05:19 → ASU 05:19

== ENCOUNTER 2024-07-20 14:25 | Observation (INO) ==
--- NOTE | 2024-07-20 14:56 | XRay Report ---
XR chest 1V portable CLINICAL HISTORY: Dyspnea COMPARISON STUDY: 06/20/2024 FINDINGS: Stable left shoulder prosthesis. Stable cardiomegaly with mild pulmonary vascular congestio n. No effusion, consolidation, or pneumothorax. IMPRESSION: Mild CHF. ACT 112: Negative or not required by law. Electronically signed by: Jevon Diop M.D. 07/20/2024 2:55 PM
[2024-07-20 14:59] LABS: Basophils # (auto) 0.03 K/uL (0.00-0.20); Basophils % (auto) 0.3 %; Eosinophils # (auto) 0.43 K/uL (0.00-0.50); Hematocrit (blood only) 31.4 % (37.0-47.0); Hemoglobin 10.5 g/dl (12.0-16.0); Immature Granulocytes % (auto) 0.9 %; Lymphocytes # (auto) 2.17 K/uL (1.20-3.40); Lymphocytes % (auto) 20.4 %; Mean Corpuscular Hemoglobin 31.2 pg (25.0-34.0); Mean Corpuscular Hgb Conc 33.4 g/dL (32.0-36.0); Mean Corpuscular Volume 93.2 fL (80.0-100.0); Mean Platelet Volume 8.5 fL (9.4-12.4); Monocytes # (auto) 0.76 K/uL (0.11-0.59); Monocytes % (auto) 7.2 %; Neutrophils # (auto) 7.13 K/uL (1.40-6.50); Neutrophils % (auto) 67.2 %; Platelet Count 318 K/uL (130-400); RDW Coefficient of Variation 13.5 % (11.5-14.5); RDW Standard Deviation 43.8 fL (36.4-46.3); Red Blood Count 3.37 M/uL (4.20-5.40); White Blood Count 10.62 K/ul (4.8-10.8)
[2024-07-20 14:59] LABS: iSTAT Creatinine 0.8 mg/dl (0.6-1.3); iSTAT Hemoglobin 10.5 g/dl (12.0-16.0); iSTAT Ionized Calcium 1.08 mmol/l (1.12-1.32); iSTAT Potassium 4.1 mmol/L (3.3-5.0)
--- NOTE | 2024-07-20 15:13 | Emergency Department Note ---
Impression & Plan Acute hypoxic respiratory failure, Elevated brain natriuretic peptide (BNP) level, Symptomatic anemia ED Provider Note HISTORY OF PRESENT ILLNESS: Patient is a 54-year-old female presenting with general malaise. Patient reports that yesterday she was up and about doing chores at home when she suddenly felt very fatigued and tired. Reports that she had some slight bodyaches yesterday. States that today she woke up and started vomiting at around 5:30 AM. She complains of diffuse headache. She also reports a significant sore throat and states it hurts to swallow. Also states that today with any sort of minimal exertion she feels very short of breath. She does not wear any supplemental oxygen at baseline. Reports subjective fevers and chills at home. She just underwent a right hip replacement on 07/11/2024. Reports that she has been doing well with physical therapy and has not had any redness or drainage from her wound. Denies any abdominal pain. Denies recent sick contact exposures. Denies any DVT or PE history. She is on a baby aspirin daily. Patient denies any recent dysuria or hematuria. ROS: as above PHYSICAL EXAM: Constitutional: Patient appears in no acute distress. HENT: Head: Normocephalic and atraumatic. Eyes: EOMI, PERRL Mouth/Throat: Mucous membranes moist. Uvula midline. Bilateral tonsillar hypertrophy with white exudate present on the bilateral tonsils. Neck: Trachea midline. Neck supple. Cardiovascular: RRR, No murmurs, rubs or gallops. Intact distal pulses. Pulmonary/Chest: No respiratory distress. Breath sounds clear and equal bilaterally. No wheezes or rales. Abdominal: Abdomen soft, no tenderness, rebound or guarding. Musculoskeletal: No edema, tenderness or deformity noted. Surgical incision along the right lateral hip and down the right lateral upper leg. Sea are in place. No surrounding erythema no active drainage from the incision. Skin: Warm and dry. No rash, erythema, pallor or cyanosis Psychiatric: Appropriate mood and affect for situation. Neurological: Alert and keenly responsive. CN II-XII grossly intact, moving all extremities equally and fully. MDM: - Vitals signs showed hypoxia. Patient started on 2 L nasal cannula. - History obtained via patient. History as above. - Chronic conditions affecting care: HTN; HLD; CAD (s/p PCI) - Differential diagnoses include, but are not limited to: Congestive heart failure; acute coronary syndrome; COPD/asthma exacerbation; pulmonary edema; pulmonary embolism; pneumonia; pneumothorax; viral syndrome - Order placed for continuous cardiac monitoring. At this time, monitor showed rate of 58 bpm with normal sinus rhythm, per my interpretation. - External medical records reviewed. Discharge summary dated was reviewed. Patient was discharged after having a right total hip arthroplasty. - EKG image interpreted by myself showed normal sinus rhythm. Rate bradycardic at 55 bpm. QT 416. No acute ischemic changes. - Laboratory workup interpreted by myself showed normal WBC; slight anemia (Hgb 10.5 - down from 12.3 on July 12); elevated BNP (116); normal troponin - UA negative for infection - VBG grossly normal - Viral respiratory panel negative - CXR image reviewed by myself showed some slight pulmonary edema, per my interpretation. - Strep test negative - CT PE obtained given patient's recent surgery and hypoxia. CT PE negative for PE. - Patient given 1 g IV Tylenol for headache management and on reassessment is feeling improved. - Unclear etiology for patient's symptoms at this time. However, she is hypoxic on room air and is currently on 3 L nasal cannula. Unclear if her shortness of breath is secondary to her anemia versus some new CHF. - Discussion was had with lining caser about patient's case and need for admission - Hospitalist consulted for admission - Patient admitted to [facility] hospitalist service for further evaluation and management. ASSESSMENT AND PLAN: Diagnosis: Acute hypoxia; symptomatic anemia; elevated BNP Plan: admit Past Med/Surg History Problem List (Updated 07/20/24 @ 19:22 by Stacy Wolf MD) Symptomatic anemia (Acute) Elevated brain natriuretic peptide (BNP) level (Acute) Acute hypoxic respiratory failure (Acute) Aftercare following right hip joint replacement surgery Status post right hip replacement Obesity Arthritis of right hip Tongue mass Left knee DJD Iliopsoas bursitis of left hip Hip bursitis, left Osteoarthritis of left shoulder Encounter for pre-operative examination Right knee DJD Left lumbar radiculitis (Acute) Fibromyalgia Medical History Morbid obesity Arthritis of right hip Migraines Hx of bronchitis No current issues - reason for inhalers Tongue mass Evaluated by oral maxillofacial surgery (Dr Waterman) Visit 3/6/25, plan for resection after orthopedic surgery; possible "benign Leiomyoma, schwannoma, fibroma or a similar lesion" Fibromyalgia History of COVID-19 01/2023 > resolved Hx MRSA infection Dx [place]; has had boils I&D in general surgeon's office at [facility] in the past, but it has been at least 1 year since she has had that done Hypertension CAD (coronary artery disease) PCI to mid RCA [address] Lopez [facility] Herniated disc T10-11 Degenerative disc disease Psoriatic arthritis Follows with rheum and derm GERD (gastroesophageal reflux disease) Temporomandibular joint disorder + clicking and locking, no recent locking Anxiety and depression Restless legs syndrome Peripheral neuropathy Bilateral Feet Hyperlipidemia Sleep apnea No device STEMI (ST elevation myocardial infarction) 2014 - x1 stent Surgical History History of arthroplasty of left shoulder Left TSA (04/16/23): LMA#4 igel, [place] + regional at [facility] History of ankle joint replacement (2008) Left History of incisional hernia repair from section scar Previous section (1989) x1 History of total right knee replacement (01/13/22) Right TKA (01/13/22): SAB at L3-4 + PNB at [facility] History of cholecystectomy Nausea and vomiting after administration of anesthetic agent "Sensitive to gas anesthetic" PONV, headache - "no problems with 03/2023 procedure" [facility] History of endometrial ablation H/O shoulder surgery Left + biceps tendon repair History of total hip arthroplasty Left History of esophagogastroduodenoscopy (EGD) History of appendectomy History of [place]wood fundoplication History of tooth extraction History of tonsillectomy and adenoidectomy History of cardiac cath 2014- stent to RCA 2017- Non-obstructive CAD ([facility]) - Follows [facility] Cardiology Dr [place]ataya History of heart artery stent 2014 x1 [facility] Cardiology Dr [place]ataya Family History Other Unobtainable family history due to adoption Social History Smoking Status: Current every day smoker Tobacco Type: Cigarettes Cigarettes Per Day: 1 PPD; Second Hand Exposure: No; Do You Dip or Chew Tobacco: No; Hx Alcohol Use: No Hx Substance Use: No Preferred Language: Serbian Communication Ability: Effective Visual Impairment: No Limitations Methods Time Analyst Required: No Beliefs That Will Affect Care: None marital status: Current Living Situation: Spouse current occupational status: unemployed Feels Safe at Home: Yes Assistive Devices: Cane and Glasses Allergies Allergies Allergy/AdvReac Type Severity Reaction Status Date / Time ergotamine AdvReac Intermediate Worsened Verified 07/11/24 05:39 headache, nausea ondansetron AdvReac Intermediate Worsened Verified 07/11/24 05:39 headache, nausea Home Meds Home Medications Medication Instructions Recorded Confirmed gabapentin 400 mg capsule 400 mg PO TID 04/22/19 07/20/24 (Neurontin) baclofen 10 mg tablet 10 mg PO TID PRN Pain or Muscle 04/03/21 07/20/24 Spasms hydroxyzine pamoate 25 mg capsule 25 mg PO BID PRN Anxiety 10/07/21 07/20/24 (Vistaril) multivitamin 1 tab PO QAM 01/29/23 07/20/24 albuterol sulfate 90 mcg/actuation 90 mcg inhalation Q6H PRN 05/05/24 07/20/24 breath activated powder Shortness Of Breath Or Wheezing inhaler,sensor budesonide-formoterol HFA 80 2 puff inhalation BID PRN 05/05/24 07/20/24 mcg-4.5 mcg/actuation aerosol Shortness Breath inhaler (Symbicort) coenzyme Q10 200 mg capsule 200 mg PO DAILY 05/05/24 07/20/24 lactobacillus combination no.9 4 4,000 mmu cells PO DAILY 05/05/24 07/20/24 billion cell capsule (Adult 50 Plus Probiotic) pantoprazole 40 mg tablet,delayed 40 mg PO QAM 05/05/24 07/20/24 release (Protonix) pravastatin 40 mg tablet 40 mg PO QPM 05/05/24 07/20/24 secukinumab 150 mg/mL subcutaneous 150 mg subcut MONTHLY 05/05/24 07/20/24 syringe (Cosentyx) trazodone 100 mg tablet 100 mg PO HS PRN Insomnia 06/07/24 07/20/24 Previous Rx's Medication Instructions Recorded acetaminophen 500 mg tablet 1,000 mg (2 x 500 mg) PO TID pain 07/08/24 (Tylenol Extra Strength) 30 days #180 tabs aspirin 81 mg tablet,delayed 81 mg PO BID 45 days #90 tabs 07/08/24 release (Saad Low Dose Aspirin) sennosides 8.6 mg tablet (Senokot) 8.6 mg PO BID prevent constipation 07/08/24 14 days #28 tabs tramadol 50 mg tablet 50 - 100 mg (1 - 2 x 50 mg) PO Q6 07/17/24 PRN pain #40 tabs Results & Data (ED) Vital Signs Vital Signs - 24 hr 07/20/24 14:28 07/20/24 14:28 07/20/24 14:37 Temperature 36.7 C Temperature Source Oral Pulse Rate 56 L 56 L Pulse Rate [Apical] Pulse Rate from SpO2 Sensor Respiratory Rate 20 Respiratory Effort / Characteristics Non-Labored Spontaneous Respiratory Depth Normal Respiratory Pattern Regular Blood Pressure 117/41 L Blood Pressure [Right Arm] Blood Pressure Mean 66 Blood Pressure Mean [Right Arm] Blood Pressure Position Sitting Blood Pressure Position [Right Arm] Pulse Oximetry 87 L 87 L Oxygen Delivery Method Room Air Room Air Oxygen Flow Rate Sepsis Recent Fever Within 48 Hours No Sepsis New/Unexplained Change in Mental Status N/A Sepsis Action Taken by Nursing No Action Required Oxygen Flow Rate - Titration 2 Pulse Oximetry Post Tiitration 93 07/20/24 14:39 07/20/24 16:28 07/20/24 17:00 Temperature Temperature Source Pulse Rate 59 L Pulse Rate [Apical] 54 L Pulse Rate from SpO2 Sensor 60 Respiratory Rate 20 23 Respiratory Effort / Characteristics Respiratory Depth Respiratory Pattern Blood Pressure 117/41 L Blood Pressure [Right Arm] 117/41 L Blood Pressure Mean 66 Blood Pressure Mean [Right Arm] 66 Blood Pressure Position Blood Pressure Position [Right Arm] Sitting Pulse Oximetry 93 95 98 Oxygen Delivery Method Nasal Cannula Room Air Nasal Cannula Oxygen Flow Rate 2 2 Sepsis Recent Fever Within 48 Hours Sepsis New/Unexplained Change in Mental Status Sepsis Action Taken by Nursing Oxygen Flow Rate - Titration Pulse Oximetry Post Tiitration 07/20/24 18:28 Temperature Temperature Source Pulse Rate 58 L Pulse Rate [Apical] Pulse Rate from SpO2 Sensor Respiratory Rate Respiratory Effort / Characteristics Respiratory Depth Respiratory Pattern Blood Pressure Blood Pressure [Right Arm] Blood Pressure Mean Blood Pressure Mean [Right Arm] Blood Pressure Position Blood Pressure Position [Right Arm] Pulse Oximetry Oxygen Delivery Method Oxygen Flow Rate Sepsis Recent Fever Within 48 Hours Sepsis New/Unexplained Change in Mental Status Sepsis Action Taken by Nursing Oxygen Flow Rate - Titration Pulse Oximetry Post Tiitration Laboratory Data 07/20/24 14:38 07/20/24 14:38 Lab Results 07/20/24 07/20/24 07/20/24 Range/Units 14:38 14:46 15:10 WBC 10.62 (4.8-10.8) K/ul RBC 3.37 L (4.20-5.40) M/uL Hgb 10.5 L (12.0-16.0) g/dl POC Hgb 10.5 L (12.0-16.0) g/dl Hct 31.4 L (37.0-47.0) % POC Hct 31 L (37-47) % MCV 93.2 (80.0-100.0) fL MCH 31.2 (25.0-34.0) pg MCHC 33.4 (32.0-36.0) g/dL RDW Std Deviation 43.8 (36.4-46.3) fL RDW Coeff of Halie 13.5 (11.5-14.5) % Plt Count 318 (130-400) K/uL MPV 8.5 L (9.4-12.4) fL Immature Gran % (Auto) 0.9 % Neut % (Auto) 67.2 % Lymph % (Auto) 20.4 % [place] % (Auto) 7.2 % Eos % (Auto) 4.0 % Baso % (Auto) 0.3 % Neut # (Auto) 7.13 H (1.40-6.50) K/uL Lymph # (Auto) 2.17 (1.20-3.40) K/uL [place] # (Auto) 0.76 H (0.11-0.59) K/uL Eos # (Auto) 0.43 (0.00-0.50) K/uL Baso # (Auto) 0.03 (0.00-0.20) K/uL Immature Gran # (Auto) 0.10 (0.01-0.20) K/uL PT 10.1 (9.0-12.0) Seconds INR 0.9 (0.9-1.1) VBG pH 7.39 (7.36-7.41) VBG pCO2 54 H (38-50) mmHg VBG pO2 23 mmHg VBG HCO3 33 mmol/L VBG O2 Saturation < 60.0 % VBG Base Excess 6.2 mEq/L POC Sodium 139 (135-144) mmol/L Sodium 141 (136-145) mmol/L POC Potassium 4.1 (3.3-5.0) mmol/L Potassium 4.2 (3.5-5.1) mmol/L POC Chloride 105 (101-112) mmol/L Chloride 106 (98-107) mmol/L Carbon Dioxide 30 (21-32) mmol/L POC Total CO2 24 (24-31) mmol/L Anion Gap 5 (3-11) POC Anion Gap 16.0 (16-25) mmol/L POC BUN 14 (7-18) mg/dl BUN 15 (6-23) mg/dl Creatinine 0.71 (0.6-1.2) mg/dl POC Creatinine 0.8 (0.6-1.3) mg/dl Est Cr Clr Drug Dosing 101.4 ml/min eGFR 100.35 BUN/Creatinine Ratio 21.1 H (10-20) Glucose 98 (70-99(Fasting)) mg/dl POC Glucose (other) 97 (70-99) mg/dl Calcium 9.2 (8.6-10.3) mg/dl POC Ioniz Calcium [place] 1.08 L (1.12-1.32) mmol/l Magnesium 1.9 (1.7-2.4) mg/dl Total Bilirubin 0.5 (0.2-1.0) mg/dl AST 20 (13-39) U/L ALT 13 (7-52) U/L Alkaline Phosphatase 56 (34-104) U/L Troponin I High Sens 7.5 (0-14) pg/ml B-Natriuretic Peptide 116 H (0-100) pg/ml Total Protein 6.5 (6.0-8.3) gm/dl Albumin 3.6 (3.4-5.0) gm/dl Globulin 2.9 (2.5-4.0) gm/dl Albumin/Globulin Ratio 1.2 (0.9-2) Urine Color Urine Appearance (Clear) Urine pH (4.5-7.5) Ur Specific [place] (1.000-1.030) Urine Protein (Negative) Urine Glucose (UA) (Negative) Urine Ketones (Negative) Urine Blood (Negative) Urine Nitrite (Negative) Urine Bilirubin (Negative) Urine Urobilinogen (Negative) Ur Leukocyte Esterase (Negative) Adenovirus (PCR) Not Detected (NotDetected) B. pertussis DNA (PCR) Not Detected (NotDetected) B.parapertussis DNA PCR Not Detected (NotDetected) C. pneumoniae DNA (PCR) Not Detected (NotDetected) Coronavirus OC43 (PCR) Not Detected (NotDetected) Coronavirus HKU1 (PCR) Not Detected (NotDetected) Coronavirus 229E (PCR) Not Detected (NotDetected) SARS-CoV-2 (PCR) Not Detected (NotDetected) Coronavirus NL63 (PCR) Not Detected (NotDetected) Human Metapneumovir PCR Not Detected (NotDetected) Influenza Type A (PCR) Not Detected (NotDetected) Influenza Type B (PCR) Not Detected (NotDetected) M. pneumoniae (PCR) Not Detected (NotDetected) Parainfluenza 1 (PCR) Not Detected (NotDetected) Parainfluenza 2 (PCR) Not Detected (NotDetected) Parainfluenza 3 (PCR) Not Detected (NotDetected) Parainfluenza 4 (PCR) Not Detected (NotDetected) RSV (PCR) Not Detected (NotDetected) Entero/Rhino (PCR) Not Detected (NotDetected) Group A Strep (PCR) NOT DETECTED (NotDetected) 07/20/24 Range/Units 16:46 WBC (4.8-10.8) K/ul RBC (4.20-5.40) M/uL Hgb (12.0-16.0) g/dl POC Hgb (12.0-16.0) g/dl Hct (37.0-47.0) % POC Hct (37-47) % MCV (80.0-100.0) fL MCH (25.0-34.0) pg MCHC (32.0-36.0) g/dL RDW Std Deviation (36.4-46.3) fL RDW Coeff of Halie (11.5-14.5) % Plt Count (130-400) K/uL MPV (9.4-12.4) fL Immature Gran % (Auto) % Neut % (Auto) % Lymph % (Auto) % [place] % (Auto) % Eos % (Auto) % Baso % (Auto) % Neut # (Auto) (1.40-6.50) K/uL Lymph # (Auto) (1.20-3.40) K/uL [place] # (Auto) (0.11-0.59) K/uL Eos # (Auto) (0.00-0.50) K/uL Baso # (Auto) (0.00-0.20) K/uL Immature Gran # (Auto) (0.01-0.20) K/uL PT (9.0-12.0) Seconds INR (0.9-1.1) VBG pH (7.36-7.41) VBG pCO2 (38-50) mmHg VBG pO2 mmHg VBG HCO3 mmol/L VBG O2 Saturation % VBG Base Excess mEq/L POC Sodium (135-144) mmol/L Sodium (136-145) mmol/L POC Potassium (3.3-5.0) mmol/L Potassium (3.5-5.1) mmol/L POC Chloride (101-112) mmol/L Chloride (98-107) mmol/L Carbon Dioxide (21-32) mmol/L POC Total CO2 (24-31) mmol/L Anion Gap (3-11) POC Anion Gap (16-25) mmol/L POC BUN (7-18) mg/dl BUN (6-23) mg/dl Creatinine (0.6-1.2) mg/dl POC Creatinine (0.6-1.3) mg/dl Est Cr Clr Drug Dosing ml/min eGFR BUN/Creatinine Ratio (10-20) Glucose (70-99(Fasting)) mg/dl POC Glucose (other) (70-99) mg/dl Calcium (8.6-10.3) mg/dl POC Ioniz Calcium [place] (1.12-1.32) mmol/l Magnesium (1.7-2.4) mg/dl Total Bilirubin (0.2-1.0) mg/dl AST (13-39) U/L ALT (7-52) U/L Alkaline Phosphatase (34-104) U/L Troponin I High Sens (0-14) pg/ml B-Natriuretic Peptide (0-100) pg/ml Total Protein (6.0-8.3) gm/dl Albumin (3.4-5.0) gm/dl Globulin (2.5-4.0) gm/dl Albumin/Globulin Ratio (0.9-2) Urine Color Yellow Urine Appearance Clear (Clear) Urine pH 6.5 (4.5-7.5) Ur Specific [place] 1.026 (1.000-1.030) Urine Protein Negative (Negative) Urine Glucose (UA) Negative (Negative) Urine Ketones Trace H (Negative) Urine Blood Negative (Negative) Urine Nitrite Negative (Negative) Urine Bilirubin Negative (Negative) Urine Urobilinogen Negative (Negative) Ur Leukocyte Esterase Negative (Negative) Adenovirus (PCR) (NotDetected) B. pertussis DNA (PCR) (NotDetected) B.parapertussis DNA PCR (NotDetected) C. pneumoniae DNA (PCR) (NotDetected) Coronavirus OC43 (PCR) (NotDetected) Coronavirus HKU1 (PCR) (NotDetected) Coronavirus 229E (PCR) (NotDetected) SARS-CoV-2 (PCR) (NotDetected) Coronavirus NL63 (PCR) (NotDetected) Human Metapneumovir PCR (NotDetected) Influenza Type A (PCR) (NotDetected) Influenza Type B (PCR) (NotDetected) M. pneumoniae (PCR) (NotDetected) Parainfluenza 1 (PCR) (NotDetected) Parainfluenza 2 (PCR) (NotDetected) Parainfluenza 3 (PCR) (NotDetected) Parainfluenza 4 (PCR) (NotDetected) RSV (PCR) (NotDetected) Entero/Rhino (PCR) (NotDetected) Group A Strep (PCR) (NotDetected) Administered Medications Discontinued Medications Acetaminophen (Ofirmev) 1,000 mg in 100 mls @ 400 mls/hr IV NOW STA Stop: 07/20/24 17:01 Last Infusion: 07/20/24 17:18 Dose: Infused Documented By: Admin: 07/20/24 17:01 Dose: 400 mls/hr Documented By: GREGORIA Ioversol (Optiray 320 125ml) 115 ml IV ONCE ONE Stop: 07/20/24 16:26 Last Admin: 07/20/24 16:25 Dose: 115 ml Documented By: OLGA Imaging Data Radiologist's Impression: Chest X-Ray 07/20/24 14:39 XR chest 1V portable CLINICAL HISTORY: Dyspnea COMPARISON STUDY: 06/20/2024 FINDINGS: Stable left shoulder prosthesis. Stable cardiomegaly with mild pulmonary vascular congestion. No effusion, consolidation, or pneumothorax. IMPRESSION: Mild CHF. ACT 112: Negative or not required by law. Electronically signed by: Jevon Diop M.D. 07/20/2024 2:55 PM Chest CTA 07/20/24 15:10 EXAM: CT angio chest PE protocol CLINICAL HISTORY: PE. TECHNIQUE: Contiguous 3.[address] angiographic images of the chest were acquired with the administration of 115ml Opitray-320mg/ml intravenous contrast. Coronal and sagittal reconstructions were obtained. One of these 3D techniques was utilized: Maximum Intensity Pixel (MIP), 3D Reconstructed Images, Volume Rendered Images, Surface Shaded Rendering. One of the following dose reduction techniques were utilized for this exam: Automated exposure control, adjustment of the mA and/or kV according to patient size, and use of iterative reconstruction. COMPARISON: Chest x-ray dated 06/20/2024. FINDINGS: Aorta: The thoracic aorta is normal in caliber. No evidence of aneurysm, dissection, or significant atherosclerotic changes. Aortic arch and descending thoracic aorta are unremarkable. Pulmonary Arteries: Pulmonary arteries are normal in size and opacification. No evidence of pulmonary embolism. No stenosis or filling defects. Superior Vena Cava (SVC) and Inferior Vena Cava (IVC): Normal opacification and caliber. No evidence of thrombus or obstruction. Coronary Arteries: Patency cannot be assessed due to cardiac motion. Mediastinum: No mediastinal mass or lymphadenopathy. Normal appearance of the thymus. Heart: Increased cardiac size. Lipomatous hypertrophy of the interatrial septum. No pericardial effusion. Lungs: Bilateral lower lobe and lingular atelectatic/fibrotic changes. No evidence of consolidation, nodules, or masses. No pleural effusion or thickening. Bones: No fractures or lytic/sclerotic lesions of the visualized bony structures. Normal alignment and bone density. Spine degenerative changes. Left shoulder replacement. Soft Tissues: Normal appearance of the visualized soft tissues. No abnormal masses or fluid collections. IMPRESSION: No evidence of pulmonary embolism. Bilateral lower lobe and lingular atelectatic/fibrotic changes. Increased cardiac size. Lipomatous hypertrophy of the interatrial septum. Correlate with clinical findings. Electronically signed by Nacho Hughes 07-20-2024 6:04 PM Discharge Plan Visit Data Chief Complaint: Weakness Stated Complaint: HIP DISCOMFORT, WEAKNESS, NAUSEA, VOMITING ED Provider: Stacy Wolf Discharge Problem: Acute hypoxic respiratory failure, Elevated brain natriuretic peptide (BNP) level, Symptomatic anemia Forms Stand Alone Forms: [facility] Prescriptions Prescriptions: No Action sennosides [Senokot] 8.6 mg tablet 8.6 mg PO BID 14 Days Qty: 28 0RF Rx Instructions: Take two times a day to prevent/treat constipation acetaminophen [Tylenol Extra Strength] 500 mg tablet 1,000 mg PO TID 30 Days Qty: 180 0RF Rx Instructions: Take 3 times per day to lessen pain. aspirin [Saad Low Dose Aspirin] 81 mg tablet,delayed release (DR/EC) 81 mg PO BID 45 Days Qty: 90 0RF Rx Instructions: Take to prevent blood clots. tramadol 50 mg tablet 50 - 100 mg PO Q6 PRN (Reason: pain) Qty: 40 0RF Rx Instructions: Take as needed for pain baclofen 10 mg tablet 10 mg PO TID PRN (Reason: Pain or Muscle Spasms) albuterol sulfate 90 mcg/actuation aero powdr breath act w/sensor 90 mcg inhalation Q6H PRN (Reason: Shortness Of Breath Or Wheezing) coenzyme Q10 200 mg capsule 200 mg PO DAILY Cosentyx 150 mg/mL syringe 150 mg subcut MONTHLY pantoprazole [Protonix] 40 mg tablet,delayed release (DR/EC) 40 mg PO QAM pravastatin 40 mg tablet 40 mg PO QPM Adult 50 Plus Probiotic 4 billion cell capsule 4,000 mmu cells PO DAILY Rx Instructions: administer with a meal budesonide-formoterol [Symbicort] 80-4.5 mcg/actuation HFA aerosol inhaler 2 puff inhalation BID PRN (Reason: Shortness Breath) gabapentin [Neurontin] 400 mg capsule 400 mg PO TID hydroxyzine pamoate [Vistaril] 25 mg Capsule 25 mg PO BID PRN (Reason: Anxiety) multivitamin Tablet 1 tab PO QAM trazodone 100 mg tablet 100 mg PO HS PRN (Reason: Insomnia) Referrals Referrals: Tiana Porter CRNP [Primary Care Provider] -
[2024-07-20 15:17] LABS: Base Excess VBG 6.2 mEq/L; HCO3 VBG 33 mmol/L; Oxygen Saturation VBG < 60.0 %; PCO2 VBG 54 mmHg (38-50); PO2 VBG 23 mmHg; pH VBG 7.39 (7.36-7.41)
[2024-07-20 15:29] LABS: INR 0.9 (0.9-1.1); Prothrombin Time 10.1 Seconds (9.0-12.0)
[2024-07-20 15:39] LABS: Albumin Globulin Ratio 1.2 (0.9-2); Albumin Level 3.6 gm/dl (3.4-5.0); BUN Creatinine Ratio 21.1 (10-20); Bilirubin,Total 0.5 mg/dl (0.2-1.0); Calcium 9.2 mg/dl (8.6-10.3); Creatinine Clr Calc Pharmacy 101.4 ml/min; Globulin 2.9 gm/dl (2.5-4.0); Magnesium 1.9 mg/dl (1.7-2.4); Potassium 4.2 mmol/L (3.5-5.1); Total Protein 6.5 gm/dl (6.0-8.3)
[2024-07-20 15:44] LABS: Troponin I High Sensitivity 7.5 pg/ml (0-14)
--- NOTE | 2024-07-20 15:55 | Electrocardiogram Report ---
Test Reason : Blood Pressure : */* mmHG Vent. Rate : 55 BPM Atrial Rate : 55 BPM P-R Int : 144 ms QRS Dur : 92 ms QT Int : 460 ms P-R-T Axes : 61 -17 6 degrees QTcB Int : 440 ms Sinus bradycardia Possible Left atrial enlargement Low voltage QRS Nonspecific T wave abnormality Abnormal ECG When compared with ECG of 20-Jun-2024 09:03, No significant change was found Confirmed by Nando Barboza ([id number]) on 07/20/2024 3:55:32 PM Referred By: Confirmed By: Nando Barboza
[2024-07-20 15:58] LABS: Adenovirus PCR Not Detected (NotDetected); Bordetella parapertussis PCR Not Detected (NotDetected); Bordetella pertussis PCR Not Detected (NotDetected); Chlamydia pneumoniae PCR Not Detected (NotDetected); Coronavirus 229E PCR Not Detected (NotDetected); Coronavirus CoV-2 (COVID19)PCR Not Detected (NotDetected); Coronavirus HKU1 PCR Not Detected (NotDetected); Coronavirus NL63 PCR Not Detected (NotDetected); Coronavirus OC43PCR Not Detected (NotDetected); Human Metapneumovirus PCR Not Detected (NotDetected); Influenza A PCR Not Detected (NotDetected); Influenza B PCR Not Detected (NotDetected); Mycoplasma pneumoniae PCR Not Detected (NotDetected); Parainfluenza Virus 1 PCR Not Detected (NotDetected); Parainfluenza Virus 2 PCR Not Detected (NotDetected); Parainfluenza Virus 3 PCR Not Detected (NotDetected); Parainfluenza Virus 4 PCR Not Detected (NotDetected); Respiratory Syncytial VirusPCR Not Detected (NotDetected); Rhinovirus/Enterovirus PCR Not Detected (NotDetected)
[2024-07-20] MEDS: OPTIRAY 320 125ml IV ONE (16:25)
[2024-07-20] MEDS: ACETAMINOPHEN 1,000 MG/100 ML VIAL IV STA (17:01)
[2024-07-20 17:06] LABS: Appearance Urine Clear (Clear); Bilirubin Urine Negative (Negative); Blood Urine Negative (Negative); Color Urine Yellow; Glucose Urine UA Negative (Negative); Ketones Urine Trace (Negative); Leukocyte Esterase Urine Negative (Negative); Nitrite Urine Negative (Negative); Protein Urine Negative (Negative); Specific Gravity Urine 1.026 (1.000-1.030); Urobilinogen Urine Negative (Negative); pH Urine 6.5 (4.5-7.5)
--- NOTE | 2024-07-20 18:07 | CT Scan Report ---
EXAM: CT angio chest PE protocol CLINICAL HISTORY: PE. TECHNIQUE: Contiguous 3.[address] angiographic images of the chest were acquired with the administration of 115ml Opitray-320mg/ml intravenous contrast. Coronal and sagittal reconstructions were obtained. One of these 3D techniques was utilized: Maximum Intensity Pixel (MIP), 3D Reconstructed Images, Volume Rendered Images, Surface Shaded Rendering. One of the following dose reduction techniques were utilized for this exam: Automated exposure control, adjustment of the mA and/or kV according to patient size, and use of iterative reconstruction. COMPARISON: Chest x-ray dated 06/20/2024. FINDINGS: Aorta: The thoracic aorta is normal in caliber. No evidence of aneurysm, dissection, or significant atherosclerotic changes. Aortic arch and descending thoracic aorta are unremarkable. Pulmonary Arteries: Pulmonary arteries are normal in size and opacification. No evidence of pulmonary embolism. No stenosis or filling defects. Superior Vena Cava (SVC) and Inferior Vena Cava (IVC): Normal opacification and caliber. No evidence of thrombus or obstruction. Coronary Arteries: Patency cannot be assessed due to cardiac motion. Mediastinum: No mediastinal mass or lymphadenopathy. Normal appearance of the thymus. Heart: Increased cardiac size. Lipomatous hypertrophy of the interatrial septum. No pericardial effusion. Lungs: Bilateral lower lobe and lingular atelectatic/fibrotic changes. No evidence of consolidation, nodules, or masses. No pleural effusion or thickening. Bones: No fractures or lytic/sclerotic lesions of the visualized bony structures. Normal alignment and bone density. Spine degenerative changes. Left shoulder replacement. Soft Tissues: Normal appearance of the visualized soft tissues. No abnormal masses or fluid collections. IMPRESSION: No evidence of pulmonary embolism. Bilateral lower lobe and lingular atelectatic/fibrotic changes. Increased cardiac size. Lipomatous hypertrophy of the interatrial septum. Correlate with clinical findings. Electronically signed by Nacho Hughes 07-20-2024 6:04 PM
--- NOTE | 2024-07-20 19:31 | History & Physical Report ---
Date of Service July 20, 2024 Assessment & Plan (1) Hx of bronchitis: (2) Hypertension: (3) CAD (coronary artery disease): (4) Psoriatic arthritis: (5) GERD (gastroesophageal reflux disease): (6) Anxiety and depression: (7) Restless legs syndrome: (8) Hyperlipidemia: (9) Fibromyalgia: Plan The patient is a 54-year-old female who presented to the ED on 07/20/2024 with history of recurrent bronchitis with complaints of shortness of breath and flulike symptoms. Assessment and plan: Acute hypoxic respiratory failure Recurrent bronchitis vs possible aspiration Respiratory viral panel negative, continue home inhaler and nebulizer treatments Remains on 3 L of oxygen, wean as able, chest x-ray with mild CHF, BNP unremarkable Chest CT without PE and without fluid overload, making CHF less likely Likely underlying bronchitis in the setting of recent respiratory viral illness Will trial Zithromax x 5 days, consider p.o. prednisone Recent right hip replacement 07/11/2024: Sea still in place, no S/S of active infection Hx anxiety: Hx fibromyalgia/psoriatic arthritis Continue hydroxyzine, trazodone, baclofen, managed on Cosentyx Hx HLD/CAD/[place] x 2, aspirin: Continue statin A total of 60 minutes was spent on chart review/reviewing diagnostic data/facilitating plan of care/discussion with consultants Full code DVT prophylaxis: Lovenox History of Present Illness Chief Complaint: Shortness of breath, body aches, flulike symptoms Primary Care Provider: DENISE Lorenzo The patient is a 54-year-old female with a past medical history of [place] times 05/18/2014 and 2018, HLD, CAD, apnea, psoriatic arthritis, fibromyalgia, GERD, who presents to the ED on with complaints of shortness of breath, fevers, body aches, flulike symptoms since this morning. Reports that shortness of breath has been worsening throughout the day. Recently had a right total hip replacement with Dr. Brown on 07/11/2024. [place] are still in place. No complaints or concerns with the recent hip surgery. Patient also reported some nausea and vomiting that started this morning. Along with a headache. Reports a sore throat and difficulty swallowing. Did not checher temperature at home b ut reports feeling feverish with chills. Denies any abdominal pain. Had a stress echo in may 2024 that was unremarkable. Reported worsening sob after vomiting. On arrival to the ED, labs fairly unremarkable, hemoglobin 10.5, BNP mildly elevated at 115 Procalcitonin pending UA negative Respiratory viral panel negative Chest x-ray shows mild CHF Chest CTA negative for PE or any acute changes EKG unremarkable, patient was found to be hypoxic, 87% on room air on arrival and placed on 3 L with improvement. The patient will be admitted for further workup for acute hypoxic respiratory failure Allergies Allergy/AdvReac Type Severity Reaction Status Date / Time ergotamine AdvReac Intermediate Worsened Verified 07/11/24 05:39 headache, nausea ondansetron AdvReac Intermediate Worsened Verified 07/11/24 05:39 headache, nausea Home Medications Medication Instructions Recorded Confirmed Type gabapentin 400 mg capsule 400 mg PO TID 04/22/19 07/20/24 History (Neurontin) baclofen 10 mg tablet 10 mg PO TID PRN Pain or Muscle 04/03/21 07/20/24 History Spasms hydroxyzine pamoate 25 mg capsule 25 mg PO BID PRN Anxiety 10/07/21 07/20/24 History (Vistaril) multivitamin 1 tab PO QAM 01/29/23 07/20/24 History albuterol sulfate 90 mcg/actuation 90 mcg inhalation Q6H PRN 05/05/24 07/20/24 History breath activated powder Shortness Of Breath Or Wheezing inhaler,sensor budesonide-formoterol HFA 80 2 puff inhalation BID PRN 05/05/24 07/20/24 History mcg-4.5 mcg/actuation aerosol Shortness Breath inhaler (Symbicort) coenzyme Q10 200 mg capsule 200 mg PO DAILY 05/05/24 07/20/24 History lactobacillus combination no.9 4 4,000 mmu cells PO DAILY 05/05/24 07/20/24 History billion cell capsule (Adult 50 Plus Probiotic) pantoprazole 40 mg tablet,delayed 40 mg PO QAM 05/05/24 07/20/24 History release (Protonix) pravastatin 40 mg tablet 40 mg PO QPM 05/05/24 07/20/24 History secukinumab 150 mg/mL subcutaneous 150 mg subcut MONTHLY 05/05/24 07/20/24 History syringe (Cosentyx) trazodone 100 mg tablet 100 mg PO HS PRN Insomnia 06/07/24 07/20/24 History acetaminophen 500 mg tablet 1,000 mg (2 x 500 mg) PO TID pain 07/08/24 07/20/24 Rx (Tylenol Extra Strength) 30 days #180 tabs aspirin 81 mg tablet,delayed 81 mg PO BID 45 days #90 tabs 07/08/24 07/20/24 Rx release (Saad Low Dose Aspirin) sennosides 8.6 mg tablet (Senokot) 8.6 mg PO BID prevent constipation 07/08/24 07/20/24 Rx 14 days #28 tabs tramadol 50 mg tablet 50 - 100 mg (1 - 2 x 50 mg) PO Q6 07/17/24 07/20/24 Rx PRN pain #40 tabs Past Med/Surg History Problem List (Updated 07/21/24 @ 00:07 by Background Daemnancy) Symptomatic anemia (Acute) Elevated brain natriuretic peptide (BNP) level (Acute) Acute hypoxic respiratory failure (Acute) Aftercare following right hip joint replacement surgery Status post right hip replacement Obesity Tongue mass Left knee DJD Iliopsoas bursitis of left hip Hip bursitis, left Osteoarthritis of left shoulder Right knee DJD Left lumbar radiculitis (Acute) Fibromyalgia Medical History Morbid obesity Arthritis of right hip Migraines Hx of bronchitis No current issues - reason for inhalers Tongue mass Evaluated by oral maxillofacial surgery (Dr Waterman) Visit 06/01/24, plan for resection after orthopedic surgery; possible "benign Leiomyoma, schwannoma, fibroma or a similar lesion" Fibromyalgia History of COVID-19 01/2023 > resolved Hx MRSA infection Dx [place]; has had boils I&D in general surgeon's office at [facility] in the past, but it has been at least 1 year since she has had that done Hypertension CAD (coronary artery disease) PCI to mid RCA [address] Lopez [facility] Herniated disc T10-11 Degenerative disc disease Psoriatic arthritis Follows with rheum and derm GERD (gastroesophageal reflux disease) Temporomandibular joint disorder + clicking and locking, no recent locking Anxiety and depression Restless legs syndrome Peripheral neuropathy Bilateral Feet Hyperlipidemia Sleep apnea No device STEMI (ST elevation myocardial infarction) 2015 - x1 stent Surgical History History of arthroplasty of left shoulder Left TSA (04/16/23): LMA#4 igel, [place] + regional at [facility] History of ankle joint replacement (2008) Left History of incisional hernia repair from section scar Previous section (1989) x1 History of total right knee replacement (01/13/22) Right TKA (01/13/22): SAB at L3-4 + PNB at [facility] History of cholecystectomy Nausea and vomiting after administration of anesthetic agent "Sensitive to gas anesthetic" PONV, headache - "no problems with 03/2023 procedure" [facility] History of endometrial ablation H/O shoulder surgery Left + biceps tendon repair History of total hip arthroplasty Left History of esophagogastroduodenoscopy (EGD) History of appendectomy History of [place] fundoplication History of tooth extraction History of tonsillectomy and adenoidectomy History of cardiac cath 2014- stent to RCA 2018- Non-obstructive CAD ([facility] [place]) - Follows [facility] Cardiology Dr Morataya History of heart artery stent 2014 x1 [facility] Cardiology Dr Morataya Family History Other Unobtainable family history due to adoption Social History Smoking Status: Current every day smoker Tobacco Type: Cigarettes Cigarettes Per Day: 1 PPD; Second Hand Exposure: No; Do You Dip or Chew Tobacco: No; Tobacco Cessation Education Requested by Patient: No Hx Alcohol Use: No Hx Substance Use: No Preferred Language: Hungarian Communication Ability: Effective Visual Impairment: No Limitations Applications Development Consultant Required: No Beliefs That Will Affect Care: None marital status: Current Living Situation: Spouse current occupational status: unemployed Other Information That Helps Us Care for You: No Feels Safe at Home: Yes Safety Concerns: Feels Safe At This Time Assistive Devices: Walker Review of Systems Review of Systems: All systems reviewed & are unremarkable except as noted in HPI & below Physical Exam Constitutional: WD/WN, vitals as above Eyes: PERRL, conjunctivae normal, anicteric sclerae ENMT: external ear and nose normal, oropharynx normal Neck: trachea midline, no thyromegaly Respiratory: normal respiratory effort, lungs clear to auscultation (wheezing, rhonchi in b/l lobes) Cardiovascular: RRR, no murmur, no edema (+2 pitting edema, euvolemic on exam) Gastrointestinal (Abdomen): normal bowel sounds, soft, nontender, no hepatosplenomegaly Musculoskeletal: no cyanosis or clubbing, extremities motor strength 5/5 Skin: no rashes, warm and dry Neurologic: PERRL, EOMI, accommodation nl, no face palsy, no dysarthria Lymphatic: no cervical or axillary lymphadenopathy Results & Data Results & Data Vital Signs (Past 12 Hours) Vital Signs Temp Pulse Pulse Resp BP BP Pulse Ox 07/20/24 19:22 54 L 22 135/44 L 98 07/20/24 18:28 58 L 07/20/24 17:00 59 L 23 117/41 L 98 07/20/24 16:28 54 L 20 117/41 L 95 07/20/24 14:39 93 07/20/24 14:37 56 L 07/20/24 14:28 87 L 07/20/24 14:28 36.7 C 56 L 20 117/41 L 87 L O2 Del Method O2 Flow Rate 07/20/24 19:22 Nasal Cannula 3 07/20/24 18:28 07/20/24 17:00 Nasal Cannula 2 07/20/24 16:28 Room Air 07/20/24 14:39 Nasal Cannula 2 07/20/24 14:37 07/20/24 14:28 Room Air 07/20/24 14:28 Room Air Diagnostic Findings Laboratory Results WBC 10.62 K/ul (4.8-10.8) 07/20/24 14:38 RBC 3.37 M/uL (4.20-5.40) L 07/20/24 14:38 Hgb 10.5 g/dl (12.0-16.0) L 07/20/24 14:38 POC Hgb 10.5 g/dl (12.0-16.0) L 07/20/24 14:46 Hct 31.4 % (37.0-47.0) L 07/20/24 14:38 POC Hct 31 % (37-47) L 07/20/24 14:46 MCV 93.2 fL (80.0-100.0) 07/20/24 14:38 MCH 31.2 pg (25.0-34.0) 07/20/24 14:38 MCHC 33.4 g/dL (32.0-36.0) 07/20/24 14:38 RDW Std Deviation 43.8 fL (36.4-46.3) 07/20/24 14:38 RDW Coeff of Halie 13.5 % (11.5-14.5) 07/20/24 14:38 Plt Count 318 K/uL (130-400) 07/20/24 14:38 MPV 8.5 fL (9.4-12.4) L 07/20/24 14:38 Immature Gran % (Auto) 0.9 % 07/20/24 14:38 Neut % (Auto) 67.2 % 07/20/24 14:38 Lymph % (Auto) 20.4 % 07/20/24 14:38 [place] % (Auto) 7.2 % 07/20/24 14:38 Eos % (Auto) 4.0 % 07/20/24 14:38 Baso % (Auto) 0.3 % 07/20/24 14:38 Neut # (Auto) 7.13 K/uL (1.40-6.50) H 07/20/24 14:38 Lymph # (Auto) 2.17 K/uL (1.20-3.40) 07/20/24 14:38 [place] # (Auto) 0.76 K/uL (0.11-0.59) H 07/20/24 14:38 Eos # (Auto) 0.43 K/uL (0.00-0.50) 07/20/24 14:38 Baso # (Auto) 0.03 K/uL (0.00-0.20) 07/20/24 14:38 Immature Gran # (Auto) 0.10 K/uL (0.01-0.20) 07/20/24 14:38 PT 10.1 Seconds (9.0-12.0) 07/20/24 14:38 INR 0.9 (0.9-1.1) 07/20/24 14:38 VBG pH 7.39 (7.36-7.41) 07/20/24 15:10 VBG pCO2 54 mmHg (38-50) H 07/20/24 15:10 VBG pO2 23 mmHg 07/20/24 15:10 VBG HCO3 33 mmol/L 07/20/24 15:10 VBG O2 Saturation < 60.0 % 07/20/24 15:10 VBG Base Excess 6.2 mEq/L 07/20/24 15:10 POC Sodium 139 mmol/L (135-144) 07/20/24 14:46 Sodium 141 mmol/L (136-145) 07/20/24 14:38 POC Potassium 4.1 mmol/L (3.3-5.0) 07/20/24 14:46 Potassium 4.2 mmol/L (3.5-5.1) 07/20/24 14:38 POC Chloride 105 mmol/L (101-112) 07/20/24 14:46 Chloride 106 mmol/L (98-107) 07/20/24 14:38 Carbon Dioxide 30 mmol/L (21-32) 07/20/24 14:38 POC Total CO2 24 mmol/L (24-31) 07/20/24 14:46 Anion Gap 5 (3-11) 07/20/24 14:38 POC Anion Gap 16.0 mmol/L (16-25) 07/20/24 14:46 POC BUN 14 mg/dl (7-18) 07/20/24 14:46 BUN 15 mg/dl (6-23) 07/20/24 14:38 Creatinine 0.71 mg/dl (0.6-1.2) 07/20/24 14:38 POC Creatinine 0.8 mg/dl (0.6-1.3) 07/20/24 14:46 Est Cr Clr Drug Dosing 101.4 ml/min 07/20/24 14:38 eGFR 100.35 07/20/24 14:38 BUN/Creatinine Ratio 21.1 (10-20) H 07/20/24 14:38 Glucose 98 mg/dl (70-99(Fasting)) 07/20/24 14:38 POC Glucose (other) 97 mg/dl (70-99) 07/20/24 14:46 Calcium 9.2 mg/dl (8.6-10.3) 07/20/24 14:38 POC Ioniz Calcium [place] 1.08 mmol/l (1.12-1.32) L 07/20/24 14:46 Magnesium 1.9 mg/dl (1.7-2.4) 07/20/24 14:38 Total Bilirubin 0.5 mg/dl (0.2-1.0) 07/20/24 14:38 AST 20 U/L (13-39) 07/20/24 14:38 ALT 13 U/L (7-52) 07/20/24 14:38 Alkaline Phosphatase 56 U/L (34-104) 07/20/24 14:38 Troponin I High Sens 7.5 pg/ml (0-14) 07/20/24 14:38 B-Natriuretic Peptide 116 pg/ml (0-100) H 07/20/24 15:10 Total Protein 6.5 gm/dl (6.0-8.3) 07/20/24 14:38 Albumin 3.6 gm/dl (3.4-5.0) 07/20/24 14:38 Globulin 2.9 gm/dl (2.5-4.0) 07/20/24 14:38 Albumin/Globulin Ratio 1.2 (0.9-2) 07/20/24 14:38 Urine Color Yellow 07/20/24 16:46 Urine Appearance Clear (Clear) 07/20/24 16:46 Urine pH 6.5 (4.5-7.5) 07/20/24 16:46 Ur Specific [place] 1.026 (1.000-1.030) 07/20/24 16:46 Urine Protein Negative (Negative) 07/20/24 16:46 Urine Glucose (UA) Negative (Negative) 07/20/24 16:46 Urine Ketones Trace (Negative) H 07/20/24 16:46 Urine Blood Negative (Negative) 07/20/24 16:46 Urine Nitrite Negative (Negative) 07/20/24 16:46 Urine Bilirubin Negative (Negative) 07/20/24 16:46 Urine Urobilinogen Negative (Negative) 07/20/24 16:46 Ur Leukocyte Esterase Negative (Negative) 07/20/24 16:46 Adenovirus (PCR) Not Detected (NotDetected) 07/20/24 14:38 B. pertussis DNA (PCR) Not Detected (NotDetected) 07/20/24 14:38 B.parapertussis DNA PCR Not Detected (NotDetected) 07/20/24 14:38 C. pneumoniae DNA (PCR) Not Detected (NotDetected) 07/20/24 14:38 Coronavirus OC43 (PCR) Not Detected (NotDetected) 07/20/24 14:38 Coronavirus HKU1 (PCR) Not Detected (NotDetected) 07/20/24 14:38 Coronavirus 229E (PCR) Not Detected (NotDetected) 07/20/24 14:38 SARS-CoV-2 (PCR) Not Detected (NotDetected) 07/20/24 14:38 Coronavirus NL63 (PCR) Not Detected (NotDetected) 07/20/24 14:38 Human Metapneumovir PCR Not Detected (NotDetected) 07/20/24 14:38 Influenza Type A (PCR) Not Detected (NotDetected) 07/20/24 14:38 Influenza Type B (PCR) Not Detected (NotDetected) 07/20/24 14:38 M. pneumoniae (PCR) Not Detected (NotDetected) 07/20/24 14:38 Parainfluenza 1 (PCR) Not Detected (NotDetected) 07/20/24 14:38 Parainfluenza 2 (PCR) Not Detected (NotDetected) 07/20/24 14:38 Parainfluenza 3 (PCR) Not Detected (NotDetected) 07/20/24 14:38 Parainfluenza 4 (PCR) Not Detected (NotDetected) 07/20/24 14:38 RSV (PCR) Not Detected (NotDetected) 07/20/24 14:38 Entero/Rhino (PCR) Not Detected (NotDetected) 07/20/24 14:38 Group A Strep (PCR) NOT DETECTED (NotDetected) 07/20/24 14:38 Impressions Chest X-Ray 07/20/24 14:39 XR chest 1V portable CLINICAL HISTORY: Dyspnea COMPARISON STUDY: 06/20/2024 FINDINGS: Stable left shoulder prosthesis. Stable cardiomegaly with mild pulmonary vascular congestion. No effusion, consolidation, or pneumothorax. IMPRESSION: Mild CHF. ACT 112: Negative or not required by law. Electronically signed by: Jevon Diop M.D. 07/20/2024 2:55 PM Chest CTA 07/20/24 15:10 EXAM: CT angio chest PE protocol CLINICAL HISTORY: PE. TECHNIQUE: Contiguous 3.[address] angiographic images of the chest were acquired with the administration of 115ml Opitray-320mg/ml intravenous contrast. Coronal and sagittal reconstructions were obtained. One of these 3D techniques was utilized: Maximum Intensity Pixel (MIP), 3D Reconstructed Images, Volume Rendered Images, Surface Shaded Rendering. One of the following dose reduction techniques were utilized for this exam: Automated exposure control, adjustment of the mA and/or kV according to patient size, and use of iterative reconstruction. COMPARISON: Chest x-ray dated 06/20/2024. FINDINGS: Aorta: The thoracic aorta is normal in caliber. No evidence of aneurysm, dissection, or significant atherosclerotic changes. Aortic arch and descending thoracic aorta are unremarkable. Pulmonary Arteries: Pulmonary arteries are normal in size and opacification. No evidence of pulmonary embolism. No stenosis or filling defects. Superior Vena Cava (SVC) and Inferior Vena Cava (IVC): Normal opacification and caliber. No evidence of thrombus or obstruction. Coronary Arteries: Patency cannot be assessed due to cardiac motion. Mediastinum: No mediastinal mass or lymphadenopathy. Normal appearance of the thymus. Heart: Increased cardiac size. Lipomatous hypertrophy of the interatrial septum. No pericardial effusion. Lungs: Bilateral lower lobe and lingular atelectatic/fibrotic changes. No evidence of consolidation, nodules, or masses. No pleural effusion or thickening. Bones: No fractures or lytic/sclerotic lesions of the visualized bony structures. Normal alignment and bone density. Spine degenerative changes. Left shoulder replacement. Soft Tissues: Normal appearance of the visualized soft tissues. No abnormal masses or fluid collections. IMPRESSION: No evidence of pulmonary embolism. Bilateral lower lobe and lingular atelectatic/fibrotic changes. Increased cardiac size. Lipomatous hypertrophy of the interatrial septum. Correlate with clinical findings. Electronically signed by Nacho Hughes 07-20-2024 6:04 PM Supervising Physician Co-Signing Physician Notes Attending addendum: The patient was seen and examined in emergency room She woke up with nausea and vomited around 5:30 AM and following vomiting she was complaining of wheezing and shortness of breath Denies any fever, any chest pain, any palpitation Has occasional cough without any phlegm Noted to have minimal swelling of the legs nothing is out of the way On examination Lying in bed without any acute distress Hemodynamically stable and is afebrile Has been requiring 3 L to maintain saturation Chestdecreased breath sound with minimal or no wheezing and no crackles HeartS1, S2 regular Abdomenbenign Extremities trace edema bilaterally Her admission labs and imaging studies reviewed CTA has been negative for any pneumonia and/or pulmonary embolism Doubt any CHF May have bronchitis and will be given azithromycin and she will take prednisone if the condition does not get Agree with assessment and plan as outlined above by the DENISE Purvis and take the full response of her care in the hospital Total time taken to document all this because [address] Kelley Oswald
[2024-07-20] MEDS ORDERED: hydrOXYzine HCl 25 MG TAB PO PRN (20:52)
[2024-07-20] MEDS ORDERED: BUDESONIDE/FORMOTEROL FUMARATE 80/4.5 60 PUFFS/INHALER INH PRN (20:52)
[2024-07-20] MEDS ORDERED: traZODone HCL 100 MG TAB PO PRN (20:52)
[2024-07-20] MEDS ORDERED: BACLOFEN 10 MG TAB PO PRN (20:52)
[2024-07-20] MEDS: traMADol HCL 50 MG TABLET PO PRN (21:33)
[2024-07-20] MEDS ORDERED: ALBUTEROL 0.083% NEBU SOLN 3 ML VIAL INH PRN (21:41)
[2024-07-20] MEDS: SENNA 8.6 MG TAB PO SCH (22:37)
[2024-07-20] MEDS: PRAVASTATIN SOD 40 MG TAB PO SCH (22:37)
[2024-07-20] MEDS: AZITHROMYCIN 250 MG TAB PO SCH (22:38)
--- OUTSIDE RECORDS SUMMARY | 2024-07-20 23:11 | External Medical Summary | Summary of Care ---
Author Name Unknown Organization [facility] Address [address] [address] Phone [phone] Care Team Providers Care Financial Reserve Clerk Name Role Phone Tiana Porter DENISE Primary Care Provider + Reason for Visit * Reason Onset Date Comments Precert Approved 07/04/2024 COSENTYX Encounter Details Date Type Department Care Team (Late st Contact Info) Description 07/04/2024 Telephone Rheumatology [facility] [address] [place] [address] Josue Reed MD [address] [id number] Precert Approved (COSENTYX) Allergies Active Allergy Reactions Criticality Noted Date Comments Ergotamine-Caffeine Nausea/vomiting High 08/27/2016 Pregabalin 06/07/2019 Suicidal ideations. Ondansetron Nausea/vomiting High 06/19/2016 documented as of this encounter (statuses as of 07/17/2024) Medications aspirin enteric coated 81 MG TBEC [...] Subcutaneous Solution Auto-injector (Secukinumab)Ind ications:PSA (psoriatic arthritis) ([facility]) Inject 1 mL under the skin every 4 weeks. 2 mL 2 06/28/2024 10:31 AM EDT 5 Active documented as of this encounter (statuses as of 07/17/2024) Active Problems Problem Noted Date Diagnosed Date [...] procedure 06/07/2019 Coronary artery disease invo lving [place] coronary artery of [place] heart without angina pectoris 06/07/2019 Mixed hyperlipidemia 06/07/2019 Vitamin D deficiency 06/07/2019 [place]uttate psoriasis 08/27/2016 Tobacco use disorder 01/05/2001 documented as of this encounter (statuses as of 07/17/2024) Resolved Problems Problem Noted Date Diagnosed Date Resolved Date Morbid obesity with BMI of 40.0-44.9, adult 05/05/2022 02/11/2023 Overview: Per Obesity protocol Acute appendicitis with loca lized peritonitis, without perforation, abscess, or gangrene 07/13/2020 09/13/2020 Body mass index (BMI) of 40. 0 to 44.9 in adult 07/28/2016 05/13/2022 Overview (12/28/2019): ICD-10 update of inactive term documented as of this encounter (statuses as of 07/17/2024) Immunizations Name Administration Dates Next Due COVID-19 mRNA, LNP-s, No Pre serve, 2-Dose Series (Pfizer) 01/05/2021,11/20/2020 Pneumococcal Conjugate Vacci ne, 20-valent ([id number]) 05/05/2022 Pneumococcal Polysaccharide PPV23 (Pneumovax) 09/12/2016,05/02/2014 Seasonal [...] AM EST documented as of this encounter Miscellaneous Notes * Telephone Encounter - Bertha Zhang RPh - 07/06/2024 12:44 PM EDT Previous auth valid utnil 03/28/25 however it is possible formulary could have changed. Sending to [facility] to review cosentyx re-auth * Telephone Encounter - Josue Reed MD - 07/06/2024 11:58 AM EDT Pharmacy-does she just need a new authorization for Cosentyx? Failed otezla, humira, Enbrel, and Taltz in the past. * Telephone Encounter - Kendy Mccallum CPhT - 07/04/2024 3:35 PM EDT Incoming call from patient stating that she received a letter dated 06/23/2024 that her insurance will no longer be covering Cosentyx. Please reach out to patient at [phone] to discuss. Thank you, Kendy Mccallum CPhT Food Scientist II [facility] 07/04/2024,3:38 PM documented in this encounter Plan of Treatment Upcoming Encounters Date Type Department Care Team (Late st Contact Info) Description 04/24/2025 10:40 AM EST Office Visit Rheumatology [facility] [address] [place] [phone] Josue Reed MD [address] [address] Health Maintenance Due Date Last Done Comments DISCUSS TOBACCO CESSATION (REFER TO SMARTSET #3291) 1969 Depression Monitoring 1981 HIV Screening 1984 Hepatitis B Vaccine (1 of 3 - 19+ 3-dose series) 1988 HPV/Co-Test 06/10/1999 Cologuard 2014 Colonoscopy 2014 Sigmoidoscopy 2014 Cervical Cancer Screening 05/22/2018 Pap Smear 05/22/2018 05/22/2015 Lung Cancer Screening 06/10/2019 08/20/2016 Zoster Vaccines (2 of 2) 04/26/2020 03/01/2020 COVID-19 Vaccine (3 - Pfizer risk series) 02/02/2021 01/05/2021, 11/20/2020 Colorectal Cancer Screening 10/25/2021 Fecal Occult Blood Test 10/25/2021 10/25/2020 Mammogram 06/27/2022 06/27/2021, 04/0 03/2021, 06/27/2021 GFR 04/20/2025 04/20/2024, 061 08/2022, 03/04/2022, Additional history exists Albumin/Creatinine Ratio 09/11/2025 [...] Not on filedocumented as of this encounter Care Teams Financial Reserve Clerk Relationship Specialty Start Date End Date Tiana Porter CRNP PCP - General Nurse Practitioner 03/17/23 documented as of this encounter
[2024-07-21] MEDS: ACETAMINOPHEN 325 MG TAB PO PRN (04:14)
[2024-07-21] MEDS: FIRST - Mouthwash BLM 5 ML UDP PO SCH (04:58)
[2024-07-21 07:04] VITALS: BP 104/61; TEMP 98.1
[2024-07-21] MEDS: ALBUT/IPRATROP 3MG/0.5MG NEB 3 ML VIAL NEB SCH (07:08)
[2024-07-21] MEDS: PANTOprazole 40 MG TAB PO SCH (08:32)
[2024-07-21] MEDS: ENOXAPARIN INJ 40 MG/0.4 ML SYR SQ SCH (08:32)
[2024-07-21] MEDS: ASPIRIN 81 MG ECTAB PO SCH (08:32)
[2024-07-21] MEDS: predniSONE 20 MG TAB PO SCH (08:32)
[2024-07-21] MEDS: GABAPENTIN 400 MG CAP PO SCH (08:37)
[2024-07-21 10:16] LABS: Basophils # (auto) 0.04 K/uL (0.00-0.20); Basophils % (auto) 0.4 %; Eosinophils # (auto) 0.34 K/uL (0.00-0.50); Eosinophils % (auto) 3.5 %; Hematocrit (blood only) 31.8 % (37.0-47.0); Hemoglobin 10.4 g/dl (12.0-16.0); Immature Granulocytes # (auto) 0.07 K/uL (0.01-0.20); Immature Granulocytes % (auto) 0.7 %; Lymphocytes # (auto) 2.61 K/uL (1.20-3.40); Lymphocytes % (auto) 26.7 %; Mean Corpuscular Hemoglobin 31.3 pg (25.0-34.0); Mean Corpuscular Hgb Conc 32.7 g/dL (32.0-36.0); Mean Corpuscular Volume 95.8 fL (80.0-100.0); Mean Platelet Volume 8.7 fL (9.4-12.4); Monocytes # (auto) 0.59 K/uL (0.11-0.59); Neutrophils # (auto) 6.14 K/uL (1.40-6.50); Neutrophils % (auto) 62.7 %; Platelet Count 323 K/uL (130-400); RDW Coefficient of Variation 13.4 % (11.5-14.5); Red Blood Count 3.32 M/uL (4.20-5.40); White Blood Count 9.79 K/ul (4.8-10.8)
[2024-07-21] MEDS ORDERED: ALBUT/IPRATROP 3MG/0.5MG NEB 3 ML VIAL NEB PRN (10:27)
[2024-07-21 10:31] LABS: Albumin Level 3.6 gm/dl (3.4-5.0); BUN Creatinine Ratio 17.1 (10-20); Bilirubin Direct 0.1 mg/dl (0-0.2); Bilirubin,Total 0.5 mg/dl (0.2-1.0); Calcium 8.9 mg/dl (8.6-10.3); Creatinine Clr Calc Pharmacy 92.3 ml/min; Magnesium 1.9 mg/dl (1.7-2.4); Potassium 3.9 mmol/L (3.5-5.1); Total Protein 6.6 gm/dl (6.0-8.3)
[2024-07-21] MEDS: NICOTINE 21 MG/24 HR TDSY TD SCH (11:04)
[2024-07-21 11:52] VITALS: PULSE 62; RESP 16; O2SAT 94
--- NOTE | 2024-07-21 12:16 | Communication Note ---
Date of Service: July 21, 2024 Code 44 Attestation The chart reviewed and noted that appropriate decisions were taken by the attending. By CMS guidelines, a determination that the admission or continued stay is not medically necessary has been made by a member of the UR committee and a physician for this hospital stay, therefore a Code 44 will be completed and the Inpatient admission will be changed to outpatient. Dr Kelley Oswald Member UR Committee
--- NOTE | 2024-07-21 12:19 | Discharge Summary ---
Discharge Summary Date of Service July 21, 2024 Principal Dx & Hospital Course #1 = Principal Diagnosis (1) Hx of bronchitis: (2) Hypertension: (3) CAD (coronary artery disease): (4) Psoriatic arthritis: (5) GERD (gastroesophageal reflux disease): (6) Anxiety and depression: (7) Restless legs syndrome: (8) Hyperlipidemia: (9) Fibromyalgia: Plan The patient is a 54-year-old female who presented to the ED on 07/20/2024 with history of recurrent bronchitis with complaints of shortness of breath and flulike symptoms. Assessment and plan: Acute hypoxic respiratory failure Recurrent bronchitis - Pt initially required 3L of oxygen on arrival and was gradually weaned down to room air Chest CT without PE and without fluid overload, making CHF less likely Likely underlying bronchitis in the setting of recent respiratory viral illness and CT with evidence of atelectasis likely due to recent procedure Treat with Z pack and prednisone 40mg daily x 5 days. - 2 step oxygen was negative for hypoxia with exertion - Recommend outpatient PFT testing given long standing smoking history - Encouraged to continue to work with incentive spirometer given immobility from recent surgery Recent right hip replacement 07/11/2024: Sea still in place, and incision looks great - She will follow up with Dr. Brown in clinic as scheduled Hx anxiety: Hx fibromyalgia/psoriatic arthritis Continue hydroxyzine, trazodone, baclofen, managed on Cosentyx Migraine -resolved Hx HLD/CAD/[place] x 2, aspirin: Continue statin A total of 45 minutes was spent on chart review/reviewing diagnostic data/facilitating plan of care/discussion with consultants Discussed plan of care with Pts EMILIO Crawford Notes For Next Care Provider Recommend outpatient PFT testing Smoking cessation Medication Changes From Visit Azithromycin 250mg by mouth in the evening for additional 4 days. Next dose due evening on 07/21/24. Prednisone 40mg (2 tablets) by mouth once daily for additional 4 days. Next dose due 07/22/24 in the a.m. You are also being prescribed a albuterol inhaler. You may use this every 4-6 hrs as needed for Shortness of breath. Please continue all other medications as prescribed. Admission HPI Per Admitting Provider The patient is a 54-year-old female with a past medical history of [place] times 05/18/2014 and 2018, HLD, CAD, apnea, psoriatic arthritis, fibromyalgia, GERD, who presents to the ED on with complaints of shortness of breath, fevers, body aches, flulike symptoms since this morning. Reports that shortness of breath has been worsening throughout the day. Recently had a right total hip replacement with Dr. Brown on 07/11/2024. Sea are still in place. No complaints or concerns with the recent hip surgery. Patient also reported some nausea and vomiting that started this morning. Along with a headache. Reports a sore throat and difficulty swallowing. Did not checher temperature at home but reports feeling feverish with chills. Denies any abdominal pain. Had a stress echo in may 2024 that was unremarkable. Reported worsening sob after vomiting. On arrival to the ED, labs fairly unremarkable, hemoglobin 10.5, BNP mildly elevated at 115 Procalcitonin pending UA negative Respiratory viral panel negative Chest x-ray shows mild CHF Chest CTA negative for PE or any acute changes EKG unremarkable, patient was found to be hypoxic, 87% on room air on arrival and placed on 3 L with improvement. The patient will be admitted for further workup for acute hypoxic respiratory failure Admission Exam Per Admitting Provider Constitutional: WD/WN, vitals as above Eyes: PERRL, conjunctivae normal, anicteric sclerae ENMT: external ear and nose normal, oropharynx normal Neck: trachea midline, no thyromegaly Respiratory: normal respiratory effort, lungs clear to auscultation (wheezing, rhonchi in b/l lobes) Cardiovascular: RRR, no murmur, no edema (+2 pitting edema, euvolemic on exam) Gastrointestinal (Abdomen): normal bowel sounds, soft, nontender, no hepatosplenomegaly Musculoskeletal: no cyanosis or clubbing, extremities motor strength 5/5 Skin: no rashes, warm and dry Neurologic: PERRL, EOMI, accommodation nl, no face palsy, no dysarthria Lymphatic: no cervical or axillary lymphadenopathy Discharge Exam Gen: WD/WN, NAD, A&O x3 HEENT: Normocephalic, atraumatic, conjunctivae moist, sclerae anicteric, mucous membranes moist. Lung: Clear to Auscultation bilaterally, no wheezes/rales/rhonchi Heart: Regular rate, regular rhythm, no murmurs, rubs, or gallops Abdomen: Soft, NT, ND +BS x 4 Extremities: No edema, R lateral hip incision with sea intact, no surrounding erythema/edema/ecchymosis Skin: Warm, no rash, negative turgor. Updated Medication List Medication Instructions Recorded Confirmed Type gabapentin 400 mg capsule 400 mg PO TID 04/22/19 07/20/24 History (Neurontin) baclofen 10 mg tablet 10 mg PO TID PRN Pain or Muscle 04/03/21 07/20/24 History Spasms hydroxyzine pamoate 25 mg capsule 25 mg PO BID PRN Anxiety 10/07/21 07/20/24 History (Vistaril) multivitamin 1 tab PO QAM 01/29/23 07/20/24 History coenzyme Q10 200 mg capsule 200 mg PO DAILY 05/05/24 07/20/24 History lactobacillus combination no.9 4 4,000 mmu cells PO DAILY 05/05/24 07/20/24 History billion cell capsule (Adult 50 Plus Probiotic) pantoprazole 40 mg tablet,delayed 40 mg PO QAM 05/05/24 07/20/24 History release (Protonix) pravastatin 40 mg tablet 40 mg PO QPM 05/05/24 07/20/24 History secukinumab 150 mg/mL subcutaneous 150 mg subcut MONTHLY 05/05/24 07/20/24 History syringe (Cosentyx) trazodone 100 mg tablet 100 mg PO HS PRN Insomnia 06/07/24 07/20/24 History acetaminophen 500 mg tablet 1,000 mg (2 x 500 mg) PO TID pain 07/08/24 07/20/24 Rx (Tylenol Extra Strength) 30 days #180 tabs aspirin 81 mg tablet,delayed 81 mg PO BID 45 days #90 tabs 07/08/24 07/20/24 Rx release (Saad Low Dose Aspirin) sennosides 8.6 mg tablet (Senokot) 8.6 mg PO BID prevent constipation 07/08/24 07/20/24 Rx 14 days #28 tabs tramadol 50 mg tablet 50 - 100 mg (1 - 2 x 50 mg) PO Q6 07/17/24 07/20/24 Rx PRN pain #40 tabs albuterol sulfate 90 mcg/actuation 90 mcg inhalation Q6H PRN 07/21/24 Rx breath activated powder Shortness Of Breath Or Wheezing #1 inhaler,sensor ea azithromycin 250 mg tablet 250 mg PO DAILY 4 days #4 tabs 07/21/24 Rx prednisone 20 mg tablet 40 mg (2 x 20 mg) PO DAILY #8 tabs 07/21/24 Rx Hospital Stay Data Consultations 07/20/24 19:19 ED Decision to Admit Stat Diagnostic Imagining Performed 07/21/24 07/20/24 07/20/24 Range/Units 09:44 16:46 15:10 WBC 9.79 (4.8-10.8) K/ul RBC 3.32 L (4.20-5.40) M/uL Hgb 10.4 L (12.0-16.0) g/dl POC Hgb (12.0-16.0) g/dl Hct 31.8 L (37.0-47.0) % POC Hct (37-47) % MCV 95.8 (80.0-100.0) fL MCH 31.3 (25.0-34.0) pg MCHC 32.7 (32.0-36.0) g/dL RDW Std Deviation 45.0 (36.4-46.3) fL RDW Coeff of Halie 13.4 (11.5-14.5) % Plt Count 323 (130-400) K/uL MPV 8.7 L (9.4-12.4) fL Immature Gran % (Auto) 0.7 % Neut % (Auto) 62.7 % Lymph % (Auto) 26.7 % [place] % (Auto) 6.0 % Eos % (Auto) 3.5 % Baso % (Auto) 0.4 % Neut # (Auto) 6.14 (1.40-6.50) K/uL Lymph # (Auto) 2.61 (1.20-3.40) K/uL [place] # (Auto) 0.59 (0.11-0.59) K/uL Eos # (Auto) 0.34 (0.00-0.50) K/uL Baso # (Auto) 0.04 (0.00-0.20) K/uL Immature Gran # (Auto) 0.07 (0.01-0.20) K/uL PT (9.0-12.0) Seconds INR (0.9-1.1) VBG pH 7.39 (7.36-7.41) VBG pCO2 54 H (38-50) mmHg VBG pO2 23 mmHg VBG HCO3 33 mmol/L VBG O2 Saturation < 60.0 % VBG Base Excess 6.2 mEq/L POC Sodium (135-144) mmol/L Sodium 137 (136-145) mmol/L POC Potassium (3.3-5.0) mmol/L Potassium 3.9 (3.5-5.1) mmol/L POC Chloride (101-112) mmol/L Chloride 100 (98-107) mmol/L Carbon Dioxide 30 (21-32) mmol/L POC Total CO2 (24-31) mmol/L Anion Gap 7 (3-11) POC Anion Gap (16-25) mmol/L POC BUN (7-18) mg/dl BUN 13 (6-23) mg/dl Creatinine 0.76 (0.6-1.2) mg/dl POC Creatinine (0.6-1.3) mg/dl Est Cr Clr Drug Dosing 92.3 ml/min eGFR 92.48 BUN/Creatinine Ratio 17.1 (10-20) Glucose 159 H (70-99(Fasting)) mg/dl POC Glucose (other) (70-99) mg/dl Calcium 8.9 (8.6-10.3) mg/dl POC Ioniz Calcium [place] (1.12-1.32) mmol/l Ionized Calcium 1.17 (1.12-1.32) mmol/L Magnesium 1.9 (1.7-2.4) mg/dl Total Bilirubin 0.5 (0.2-1.0) mg/dl Direct Bilirubin 0.1 (0-0.2) mg/dl AST 19 (13-39) U/L ALT 14 (7-52) U/L Alkaline Phosphatase 58 (34-104) U/L Troponin I High Sens (0-14) pg/ml B-Natriuretic Peptide 116 H (0-100) pg/ml Total Protein 6.6 (6.0-8.3) gm/dl Albumin 3.6 (3.4-5.0) gm/dl Globulin (2.5-4.0) gm/dl Albumin/Globulin Ratio (0.9-2) Procalcitonin (0-0.5) ng/ml Urine Color Yellow Urine Appearance Clear (Clear) Urine pH 6.5 (4.5-7.5) Ur Specific [place] 1.026 (1.000-1.030) Urine Protein Negative (Negative) Urine Glucose (UA) Negative (Negative) Urine Ketones Trace H (Negative) Urine Blood Negative (Negative) Urine Nitrite Negative (Negative) Urine Bilirubin Negative (Negative) Urine Urobilinogen Negative (Negative) Ur Leukocyte Esterase Negative (Negative) Adenovirus (PCR) (NotDetected) B. pertussis DNA (PCR) (NotDetected) B.parapertussis DNA PCR (NotDetected) C. pneumoniae DNA (PCR) (NotDetected) Coronavirus OC43 (PCR) (NotDetected) Coronavirus HKU1 (PCR) (NotDetected) Coronavirus 229E (PCR) (NotDetected) SARS-CoV-2 (PCR) (NotDetected) Coronavirus NL63 (PCR) (NotDetected) Human Metapneumovir PCR (NotDetected) Influenza Type A (PCR) (NotDetected) Influenza Type B (PCR) (NotDetected) M. pneumoniae (PCR) (NotDetected) Parainfluenza 1 (PCR) (NotDetected) Parainfluenza 2 (PCR) (NotDetected) Parainfluenza 3 (PCR) (NotDetected) Parainfluenza 4 (PCR) (NotDetected) RSV (PCR) (NotDetected) Entero/Rhino (PCR) (NotDetected) Group A Strep (PCR) (NotDetected) 07/20/24 07/20/24 Range/Units 14:46 14:38 WBC 10.62 (4.8-10.8) K/ul RBC 3.37 L (4.20-5.40) M/uL Hgb 10.5 L (12.0-16.0) g/dl POC Hgb 10.5 L (12.0-16.0) g/dl Hct 31.4 L (37.0-47.0) % POC Hct 31 L (37-47) % MCV 93.2 (80.0-100.0) fL MCH 31.2 (25.0-34.0) pg MCHC 33.4 (32.0-36.0) g/dL RDW Std Deviation 43.8 (36.4-46.3) fL RDW Coeff of Halie 13.5 (11.5-14.5) % Plt Count 318 (130-400) K/uL MPV 8.5 L (9.4-12.4) fL Immature Gran % (Auto) 0.9 % Neut % (Auto) 67.2 % Lymph % (Auto) 20.4 % [place] % (Auto) 7.2 % Eos % (Auto) 4.0 % Baso % (Auto) 0.3 % Neut # (Auto) 7.13 H (1.40-6.50) K/uL Lymph # (Auto) 2.17 (1.20-3.40) K/uL [place] # (Auto) 0.76 H (0.11-0.59) K/uL Eos # (Auto) 0.43 (0.00-0.50) K/uL Baso # (Auto) 0.03 (0.00-0.20) K/uL Immature Gran # (Auto) 0.10 (0.01-0.20) K/uL PT 10.1 (9.0-12.0) Seconds INR 0.9 (0.9-1.1) VBG pH (7.36-7.41) VBG pCO2 (38-50) mmHg VBG pO2 mmHg VBG HCO3 mmol/L VBG O2 Saturation % VBG Base Excess mEq/L POC Sodium 139 (135-144) mmol/L Sodium 141 (136-145) mmol/L POC Potassium 4.1 (3.3-5.0) mmol/L Potassium 4.2 (3.5-5.1) mmol/L POC Chloride 105 (101-112) mmol/L Chloride 106 (98-107) mmol/L Carbon Dioxide 30 (21-32) mmol/L POC Total CO2 24 (24-31) mmol/L Anion Gap 5 (3-11) POC Anion Gap 16.0 (16-25) mmol/L POC BUN 14 (7-18) mg/dl BUN 15 (6-23) mg/dl Creatinine 0.71 (0.6-1.2) mg/dl POC Creatinine 0.8 (0.6-1.3) mg/dl Est Cr Clr Drug Dosing 101.4 ml/min eGFR 100.35 BUN/Creatinine Ratio 21.1 H (10-20) Glucose 98 (70-99(Fasting)) mg/dl POC Glucose (other) 97 (70-99) mg/dl Calcium 9.2 (8.6-10.3) mg/dl POC Ioniz Calcium [place] 1.08 L (1.12-1.32) mmol/l Ionized Calcium (1.12-1.32) mmol/L Magnesium 1.9 (1.7-2.4) mg/dl Total Bilirubin 0.5 (0.2-1.0) mg/dl Direct Bilirubin (0-0.2) mg/dl AST 20 (13-39) U/L ALT 13 (7-52) U/L Alkaline Phosphatase 56 (34-104) U/L Troponin I High Sens 7.5 (0-14) pg/ml B-Natriuretic Peptide (0-100) pg/ml Total Protein 6.5 (6.0-8.3) gm/dl Albumin 3.6 (3.4-5.0) gm/dl Globulin 2.9 (2.5-4.0) gm/dl Albumin/Globulin Ratio 1.2 (0.9-2) Procalcitonin < 0.02 (0-0.5) ng/ml Urine Color Urine Appearance (Clear) Urine pH (4.5-7.5) Ur Specific [place] (1.000-1.030) Urine Protein (Negative) Urine Glucose (UA) (Negative) Urine Ketones (Negative) Urine Blood (Negative) Urine Nitrite (Negative) Urine Bilirubin (Negative) Urine Urobilinogen (Negative) Ur Leukocyte Esterase (Negative) Adenovirus (PCR) Not Detected (NotDetected) B. pertussis DNA (PCR) Not Detected (NotDetected) B.parapertussis DNA PCR Not Detected (NotDetected) C. pneumoniae DNA (PCR) Not Detected (NotDetected) Coronavirus OC43 (PCR) Not Detected (NotDetected) Coronavirus HKU1 (PCR) Not Detected (NotDetected) Coronavirus 229E (PCR) Not Detected (NotDetected) SARS-CoV-2 (PCR) Not Detected (NotDetected) Coronavirus NL63 (PCR) Not Detected (NotDetected) Human Metapneumovir PCR Not Detected (NotDetected) Influenza Type A (PCR) Not Detected (NotDetected) Influenza Type B (PCR) Not Detected (NotDetected) M. pneumoniae (PCR) Not Detected (NotDetected) Parainfluenza 1 (PCR) Not Detected (NotDetected) Parainfluenza 2 (PCR) Not Detected (NotDetected) Parainfluenza 3 (PCR) Not Detected (NotDetected) Parainfluenza 4 (PCR) Not Detected (NotDetected) RSV (PCR) Not Detected (NotDetected) Entero/Rhino (PCR) Not Detected (NotDetected) Group A Strep (PCR) NOT DETECTED (NotDetected) Chest X-Ray 07/20/24 14:39 XR chest 1V portable CLINICAL HISTORY: Dyspnea COMPARISON STUDY: 06/20/2024 FINDINGS: Stable left shoulder prosthesis. Stable cardiomegaly with mild pulmonary vascular congestion. No effusion, consolidation, or pneumothorax. IMPRESSION: Mild CHF. ACT 112: Negative or not required by law. Electronically signed by: Jevon Diop M.D. 07/20/2024 2:55 PM Chest CTA 07/20/24 15:10 EXAM: CT angio chest PE protocol CLINICAL HISTORY: PE. TECHNIQUE: Contiguous 3.[address] angiographic images of the chest were acquired with the administration of 115ml Opitray-320mg/ml intravenous contrast. Coronal and sagittal reconstructions were obtained. One of these 3D techniques was utilized: Maximum Intensity Pixel (MIP), 3D Reconstructed Images, Volume Rendered Images, Surface Shaded Rendering. One of the following dose reduction techniques were utilized for this exam: Automated exposure control, adjustment of the mA and/or kV according to patient size, and use of iterative reconstruction. COMPARISON: Chest x-ray dated 06/20/2024. FINDINGS: Aorta: The thoracic aorta is normal in caliber. No evidence of aneurysm, dissection, or significant atherosclerotic changes. Aortic arch and descending thoracic aorta are unremarkable. Pulmonary Arteries: Pulmonary arteries are normal in size and opacification. No evidence of pulmonary embolism. No stenosis or filling defects. Superior Vena Cava (SVC) and Inferior Vena Cava (IVC): Normal opacification and caliber. No evidence of thrombus or obstruction. Coronary Arteries: Patency cannot be assessed due to cardiac motion. Mediastinum: No mediastinal mass or lymphadenopathy. Normal appearance of the thymus. Heart: Increased cardiac size. Lipomatous hypertrophy of the interatrial septum. No pericardial effusion. Lungs: Bilateral lower lobe and lingular atelectatic/fibrotic changes. No evidence of consolidation, nodules, or masses. No pleural effusion or thickening. Bones: No fractures or lytic/sclerotic lesions of the visualized bony structures. Normal alignment and bone density. Spine degenerative changes. Left shoulder replacement. Soft Tissues: Normal appearance of the visualized soft tissues. No abnormal masses or fluid collections. IMPRESSION: No evidence of pulmonary embolism. Bilateral lower lobe and lingular atelectatic/fibrotic changes. Increased cardiac size. Lipomatous hypertrophy of the interatrial septum. Correlate with clinical findings. Electronically signed by Nacho Hughes 07-20-2024 6:04 PM Pending Results Patient Have Any Pending Studies at Discharge: No Discharge Instructions Given to Patient (Per Discharging Provider) MEDICATION CHANGES: Azithromycin 250mg by mouth in the evening for additional 4 days. Next dose due evening on 07/21/24. Prednisone 40mg (2 tablets) by mouth once daily for additional 4 days. Next dose due 07/22/24 in the a.m. You are also being prescribed a albuterol inhaler. You may use this every 4-6 hrs as needed for Shortness of breath. Please continue all other medications as prescribed. SUMMARY OF TEST RESULTS: You were admitted to the hospital due to low oxygen, shortness of breath, nausea and vomiting. You were felt to have acute bronchitis. You were started on antibiotics and steroids. Your symptoms improved. PENDING TEST RESULTS: None RECOMMENDATIONS FOR FOLLOW-UP: Please follow up with primary care provider in 7-10 days of discharge. Please call their office on Wednesday to schedule this appointment. It is strongly encouraged that you try to limit your smoking or quit all together. Please discuss with your primary care provider regarding options to help with this. It is recommended you have outpatient pulmonary function testing to determine your baseline lung function once you are off treatment and feeling better. It is possible that you could benefit from a daily steroid inhaler to help prevent bronchitis if you have any abnormalities on your pulmonary function test due to your smoking history. Please follow up with orthopedics as scheduled. Please continue all hip precautions per Dr. Brown. OTHER INSTRUCTIONS: Seek medical attention if you have: * temperature above 101 * chest pain or trouble breathing * abdominal pain, nausea, vomiting * diarrhea, dark stools or bloody stools * any unanswered questions or concerns Call 911 if symptoms are severe. Please take good care of yourself. It has been a pleasure taking care of you. Please take care of yourself. If you have any questions regarding your recent hospitalization please contact [facility] and request Miriam Bhardwaj @ [phone]. Total Time Total Time Spent Total Time Spent (In Minutes): 45 minutes Supervising Physician Co-Signing Physician Notes Patient seen and examined independently. Patient reports significant improvement in her symptoms. She reports that the n ausea, vomiting has resolved. She denies shortness of breath or cough. Denies chest pain. Plan to discharge on course of azithromycin and steroid course. I discussed patient to follow-up with her primary care doctor and obtain referral for pulmonology for evaluation of possible COPD. I have reviewed the advanced practitioner's documentation, and I agree with, and take responsibility for the plan of care I spent a total of 20 minutes coordinating, documenting, and providing care for this patient excluding time spent in the performance of separately billed services. All of the aforementioned completed while collaborating with the assigned advanced practitioner for a full treatment plan
== END 2024-07-21 13:58 | disposition home or self-care (01) | DRG 189 ==
LOC: ED 14:25 → 3N 19:23 → SUATTDRO 19:23 → INTOOBSV 19:23 → 3N 20:26
DX: I50.9 Heart failure, unspecified; G25.81 Restless legs syndrome; I25.2 Old myocardial infarction; J20.8 Acute bronchitis due to other specified organisms; G43.909 Migraine, unspecified, not intractable, without status migrainosus; E78.5 Hyperlipidemia, unspecified; Z95.5 Presence of coronary angioplasty implant and graft; K21.9 Gastro-esophageal reflux disease without esophagitis; F17.210 Nicotine dependence, cigarettes, uncomplicated; Z88.8 Allergy status to other drugs, medicaments and biological substances; Z79.899 Other long term (current) drug therapy; I11.0 Hypertensive heart disease with heart failure; Z79.82 Long term (current) use of aspirin; M79.7 Fibromyalgia; I25.10 Atherosclerotic heart disease of native coronary artery without angina pectoris; Z11.52 Encounter for screening for COVID-19; J96.01 Acute respiratory failure with hypoxia